=== PATIENT | male | born 1970 | race Caucasian/White ===

== ENCOUNTER 2019-02-27 19:26 | Emergency (ER) | payer BC, SELFPAY ==
[2019-02-27 19:29] VITALS: BP 158/110; PULSE 109; RESP 20; TEMP 37.3; O2SAT 99; BMI 28.1
--- NOTE | 2019-02-27 19:54 | CT_ITS ---
STUDY: CTA OF THE BRAIN REASON FOR EXAM: Male, 48 years old. Right facial paresthesias. Neck pain. RADIATION DOSAGE (If Supplied By Facility): CTDIvol = ( 32.09 ) mGy, DLP = ( 1581.72 ) mGycm TECHNIQUE: CT angiography was performed with a multi-detector CT scanner. Data acquisition was obtained from the skull base through the vertex following intravenous administration of 100ML IV Isovue 370. MIP images were reconstructed from the axial data set. Post-processing of the angiographic images was performed, with multiplanar reformation and 3D reconstruction. Individualized dose optimization techniques were used for this CT. COMPARISON: None. FINDINGS: There is no acute bleed or infarct. There is no hydrocephalus. Normal bilateral petrous carotid arteries. Normal right cavernous carotid artery with a normal supraclinoid bifurcation. Normal left cavernous carotid artery with a normal supraclinoid bifurcation. Normal right A1 segments of the anterior cerebral artery. Normal left A1 segments of the anterior cerebral artery. Normal intact anterior communicating artery (ACOM). Normal bilateral A2 segments of the anterior cerebral arteries. Normal right M1 and M2 segments of the middle cerebral arteries, with a normal M1 bifurcation. Normal left M1 and M2 segments of the middle cerebral arteries, with a normal M1 bifurcation. Normal right posterior communicating artery (PCOM). Normal left posterior communicating artery (PCOM). Normal bilateral vertebral arteries. Normal basilar artery with a normal basilar bifurcation. The visualized bilateral superior cerebellar (SCA) arteries are normal. Normal bilateral P1, P2 and visualized P3 segments of the posterior cerebral arteries. There is no demonstrated aneurysm of the [place]. There is no demonstrated abnormality of the visualized brain. CT/CTA Head W/WO Contrast IMPRESSION: No acute intracranial abnormality. Normal [place] without a demonstrated aneurysm or hemodynamically significant stenosis. Electronically Signed: Gaurav Kaur, at 21:56 EDT Tel , Service support ,
--- NOTE | 2019-02-27 19:54 | CT_ITS ---
STUDY: CTA NECK WITH CONTRAST REASON FOR EXAM: Male, 48 years old. Right-sided facial paresthesias. Patient has right neck pain after recent trauma. RADIATION DOSAGE (If Supplied By Facility): CTDIvol = ( 32.09 ) mGy, DLP = ( 1581.72 ) mGycm TECHNIQUE: CT angiography with multi-detector data acquisition was performed from the aortic arch to the skull base following intravenous administration of 100 ml of IV Isovue 370. MIP images were reconstructed from the axial data set. Post-processing of the angiographic images was performed, with multiplanar reformation and 3D reconstruction. Individualized dose optimization techniques were used for this CT. COMPARISON: None. FINDINGS: AORTIC ARCH: Normal visualized aortic arch. Normal origins of the brachiocephalic, left common carotid, and left subclavian arteries. RIGHT CAROTID ARTERIES: Normal right common carotid artery (CCA). Normal right common carotid bulb. Normal origin of the right internal carotid (ICA) artery without a hemodynamically significant stenosis. There is atherosclerotic tortuous elongation of the cervical portion of the right internal carotid artery. Normal origin of the right external carotid artery (ECA). LEFT CAROTID ARTERIES: Normal left common carotid artery (CCA). Normal left common carotid bulb. Normal origin of the left internal carotid (ICA) artery without a hemodynamically significant stenosis. There is atherosclerotic tortuous elongation of the cervical portion of the left internal carotid artery. Normal origin of the left external carotid artery (ECA). VERTEBRAL ARTERIES: Normal bilateral vertebral arteries. NECK ANATOMY: Normal bilateral parotid glands. 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 Normal bilateral parapharyngeal spaces. Normal bilateral carotid spaces. Normal bilateral sublingual and submandibular glands and spaces. Normal visualized nasopharynx. Normal retropharyngeal space. Normal perivertebral space. Normal visualized bilateral faucial tonsils. The visualized tongue, tongue base and oropharynx are normal. The visualized cervical lymph nodes (levels I-) are within normal size limits, and maintain normal morphology. There is no demonstrated solid or cystic mass lesion. There is no abnormal contrast enhancement. Normal epiglottis, bilateral vallecula and hypopharynx. The pre-epiglottic and paraglottic adipose spaces are normal. Normal visualized bilateral piriform sinuses, aryepiglottic folds, vocal cords, and arytenoid-cricoid articulations. Normal subglottic trachea. Normal bilateral lobes of the thyroid gland. There are peripheral lucencies of the lung apices possibly related to paraseptal emphysema. The lung apices appear to be clear. There is a small mucous retention cyst in the left sphenoid sinus. Patient has had discectomies at C5-6 and C6-7 with evidence for bone allografts and surgical fusion with plate and screws. Patient also has had posterior fusion at C5-[address]/CTA Neck W/WO Contrast IMPRESSION: No CT evidence for hemodynamically significant stenosis, acute thrombosis or dissection. Electronically Signed: Eloina Goyal MD at 22:16 EDT , Service support ,
[2019-02-27] MEDS: 0.9% Normal Saline 1,000 ML 150 ML IV (20:02)
[2019-02-27] MEDS: HYDROmorphone 1 MG/ML Syringe IV (20:02)
[2019-02-27] MEDS: Ondansetron 4 MG/2 ML Vial IV (20:02)
[2019-02-27 20:20] LABS: Absolute Lymphocyte Count 2.22 X10^3/ul (0.83-4.51); Absolute Neutrophil Count 9.9 X10^3/uL (2.0-7.7); Basophil# 0.04 X10^3/uL; Basophil% 0.3 % (0-1); Eosinophil# 0.46 X10^3/uL; Eosinophils% 3.4 % (0-5); Hematocrit 39.3 % (40-54); Hemoglobin 13.1 g/dl (13.0-16.5); Lymphocyte # 2.22 X10^3/ul (4.0); Lymphocyte % 16.3 % (19-41); Mean Corp Hgb Conc 33.3 g/gl (32-36); Mean Corpuscular Hgb 30.7 pg (27.0-32.0); Monocyte# 0.96 X10^3/uL; Neutrophil # 9.93 X10^3/uL (2.7-7.7); Neutrophil % 72.8 % (47-70); Platelet Count 284 K/mm3 (150-450); RBC Distribution Width CV 13.7 % (11.6-14.6); RBC Distribution Width SD 45.9 fl (35.1-43.9); Red Blood Count 4.27 M/mm3 (4.6-6.2); White Blood Count 13.6 K/mm3 (4.4-11.0)
[2019-02-27 20:34] LABS: POSITIVE COUNT NO; POSITIVE DIFFERENTIAL NO; POSITIVE MORPHOLOGY NO
[2019-02-27 20:41] LABS: Anion Gap 7 (5-15); BUN 12 mg/dL (7-18); BUN/Creat Ratio 10.8 RATIO (10-20); Calcium,Total 8.8 mg/dL (8.5-10.1); Chloride 109 mmol/L (98-107); Creatinine, Serum 1.11 mg/dL (0.70-1.30); EST Glomerular Filtration Rate 75 mL/min (>60); Est Glom Filt Rate - Afr Amer 90 mL/min (>60); Estimated Creatinine Clearance 98.83 ml/min; Glucose 94 mg/dL (74-106); Potassium 4.1 mmol/L (3.5-5.1); Sodium Level 144 mmol/L (136-145)
--- NOTE | 2019-02-27 21:15 | ED.VISSUMM ---
- ER Visit Summary Date of Service: 02/27/19 Chief Complaint: Numbness right face, neck pain History of Present Illness: The patient is a 48 M with history of chronic neck pain with history of C-spine surgery several years ago. Patient states he cracked his neck on February 24. It was painful and he heard a loud pop. Since that time he had increased pain to his neck with intermittent sharp pain down to his mid back. Today he noted some right facial numbness. Physical Examination: Blood pressure is 150/110 and heart rate 109. Patient sitting upright in bed. He is no acute distress. Head and neck examination reveals diffuse C-spine tenderness with paraspinal spasm that is palpable. Heart is regular rate and rhythm. Lung sounds are clear. Abdomen is soft and nontender. Neuro exam reveals normal strength throughout. He has decreased sensation to light touch over the right side the face. There is no facial weakness noted. Test Results: CBC was a white count 13.6 with 72% neutrophils. Chemistry studies normal. CTA of the head and neck shows no acute abnormality. Emergency Department Course and Treatment: Patient was given Dilaudid, Zofran, IV fluids. On repeat evaluation he still has some tightness but overall is improved compared to arrival. I did do an oars report. Patient has recently had medical marijuana written for him. His last prescription for Valium was in April of last year. He had no narcotics noted. At this time patient be given a short course of oxycodone and Valium. He does list Percocet as an allergy, but states he knows he took oxycodone after his surgery and did okay with it. Treatment Plan: [] Disposition: Discharge Impression: Cervical strain with spasm This note was generated with [employer] dictation software. It may contain incorrect words, spelling, and punctuation that were not noted in review of the chart prior to signing ED Disposition - Plan for ED Patient: Disposition: Home or Assisted Living Instructions: ED Sprain Strain Neck, ED Spasm Neck No Injury Prescriptions: Oxycodone [Oxyir] 5 mg PO Q6H PRN PRN 3 Days #7 tablet PRN Reason: Pain Diazepam [Valium] 5 mg PO Q8 PRN #10 tablet PRN Reason: Muscle Spasm Referrals: Chad Jane MD [STAFF PHYSICIAN] - As soon as possible
[2019-02-27] MEDS: oxyCODONE 5 MG Tablet PO (22:41)
[2019-02-27] MEDS: diazePAM 5 MG Tablet PO (22:41)
[2019-02-27 22:45] VITALS: RESP 18
== END 2019-02-27 22:45 | disposition home or self-care (01) ==
PROVIDERS: Emergency Provider Emergency Medicine; Family Provider Nurse Practitioner Family; PCP Nurse Practitioner Family
DX: M62.838 Other muscle spasm (principal); S16.1XXA Strain of muscle, fascia and tendon at neck level, initial encounter; Z72.0 Tobacco use; X50.1XXA Overexertion from prolonged static or awkward postures, initial encounter; Y93.89 Activity, other specified; Y92.89 Other specified places as the place of occurrence of the external cause; Y99.8 Other external cause status
CPT/HCPCS: 70496; 70498; 80048; 85025; 96361; 96374; 96375; 99284; J7030; A4216; J2405

== ENCOUNTER 2019-03-01 10:14 | Inpatient (IN) | payer BC, SELFPAY ==
[2019-03-01] VITALS (7 sets, daily range): BP systolic 139–148; BP diastolic 82–92; PULSE 55–86; RESP 16–18; TEMP 36.8–37.4; O2SAT 95–97; BMI 26.7; BMI 26.9
--- NOTE | 2019-03-01 10:26 | CT_ITS ---
STUDY: CT SOFT TISSUE NECK WITH CONTRAST REASON FOR EXAM: Male, 48 years old. Swelling along the right side of the neck and face. Difficulty swallowing. RADIATION DOSAGE (If Supplied By Facility): CTDIvol = ( 21.74 ) mGy, DLP = ( 651.50 ) mGycm TECHNIQUE: The patient was scanned in a multi-detector CT scanner. High resolution transaxial imaging was performed following intravenous administration of 100 IV Isovue 300. Sagittal and coronal images were reconstructed. Individualized dose optimization techniques were used for this CT. COMPARISON: None. FINDINGS: There now is evidence of diffuse swelling overlying the right mandible involving the right masseter muscle with overlying skin thickening. Diffuse swelling of the right submandibular gland. There is evidence of soft tissue swelling along the inside aspect of the right mandible with a fluid level. There is also evidence of a soft tissue swelling involving the right side of the oropharynx as well as the pterygoid region. Normal visualized bilateral faucial tonsils. The visualized tongue, tongue base and oropharynx are normal. There are minimally enlarged lymph nodes of the neck, with preservation of normal lc architecture, consistent with a reactive lymph hyperplasia. This is worse on the right side. There is no demonstrated solid or cystic mass lesion. There is no abnormal contrast enhancement. Normal epiglottis, bilateral vallecula and hypopharynx. The pre-epiglottic and paraglottic adipose spaces are normal. Normal visualized bilateral piriform sinuses, aryepiglottic folds, vocal cords, and arytenoid-cricoid articulations. Normal subglottic trachea. Normal bilateral lobes of the thyroid gland. Normal visualized pulmonary apices. Normal visualized paranasal sinuses. There is multilevel degenerative changes of the cervical spine. CT/Soft Tissue Neck WITH Contrast IMPRESSION: Diffuse right-sided facial swelling as described involving the masseter muscle. Diffuse swelling of the right side of the oropharynx and parapharyngeal regions with enlarged lymph nodes. Diffuse enlargement of the right submandibular gland. Possible fluid collection along medial aspect of the right mandible. Electronically Signed: Diego Berumen, at 11:15 EDT , Service support ,
--- NOTE | 2019-03-01 10:32 | ED.DCSUM_ITS ---
- ER Visit Summary Date of Service: 03/01/19 Chief Complaint: Swelling History of Present Illness: The patient is a 48 M with right some mandibular swelling. Patient was seen for headache and neck pain in this ED 2 days ago. He had imaging which was unremarkable. Since he was seen, the swelling has started. He is having trouble swallowing and he noticed a change in his voice. He never had anything like this before. Physical Examination: Afebrile and vital signs are unremarkable. Patient has right submandibular swelling with tenderness. Oral exam is limited because of mild trismus. No definite sub-lingual swelling. Spine is nontender. Cranial nerves grossly intact. Heart regular. Lungs clear. Test Results: Labs and CT pending. Emergency Department Course and Treatment: Patient treated with fluids, D ilaudid, Zofran while awaiting results. White count 20.5. Patient does not meet other criteria for sepsis, but blood cultures were drawn. CT shows swelling and edema from the masseter muscles into the submandibular gland and extending to the oropharynx. Airway is intact. Patient was discussed with Dr. Shepherd. He will see the patient on consult. Patient was started on Decadron and Rocephin. Patient will be admitted to the hospitalist. Treatment Plan: As above Disposition: Admission Impression: 1. Right submandibular infection This note was generated with [employer] dictation software. It may contain incorrect words, spelling, and punctuation that were not noted in review of the chart prior to signing ED Disposition - Plan for ED Patient: Referrals: Kady Gaitan, YAMIL-C [Primary Care Provider] -
[2019-03-01] MEDS: 0.9% Normal Saline 1,000 ML 999 ML IV (10:44)
[2019-03-01] MEDS: HYDROmorphone 1 MG/ML Syringe IV ×5 (10:44→23:12)
[2019-03-01] MEDS: Ondansetron 4 MG/2 ML Vial IV (10:44)
[2019-03-01 10:54] LABS: Hematocrit 39.5 % (40-54); Hemoglobin 13.5 g/dl (13.0-16.5); Mean Corp Hgb Conc 34.2 g/gl (32-36); Mean Corpuscular Hgb 31.1 pg (27.0-32.0); Mean Platelet Vol. 9.7 fl (6.2-12.0); Platelet Count 218 K/mm3 (150-450); RBC Distribution Width CV 13.6 % (11.6-14.6); RBC Distribution Width SD 45.2 fl (35.1-43.9); Red Blood Count 4.34 M/mm3 (4.6-6.2); White Blood Count 20.5 K/mm3 (4.4-11.0)
[2019-03-01 10:56] LABS: Scan Indicated on CBC? Y/N NO
[2019-03-01 11:06] LABS: Anion Gap 10 (5-15); BUN 9 mg/dL (7-18); BUN/Creat Ratio 7.8 RATIO (10-20); Calcium,Total 8.9 mg/dL (8.5-10.1); Chloride 105 mmol/L (98-107); Creatinine, Serum 1.16 mg/dL (0.70-1.30); EST Glomerular Filtration Rate 71 mL/min (>60); Est Glom Filt Rate - Afr Amer 86 mL/min (>60); Estimated Creatinine Clearance 94.57 ml/min; Glucose 120 mg/dL (74-106); Potassium 3.8 mmol/L (3.5-5.1); Sodium Level 141 mmol/L (136-145)
[2019-03-01] MEDS: dexAMETHasone 10 MG/ML Vial IV (12:11)
[2019-03-01] MEDS: Cefazolin 2 GM in 0.9% Normal Saline 100 ML IV (12:31)
[2019-03-01] MEDS: fentaNYL 100 MCG/2 ML Ampul 50 MCG IV (12:31)
[2019-03-01] MEDS: dexAMETHasone 4 MG/ML Vial IV ×2 (13:32→22:20)
[2019-03-01] MEDS: 0.9% Normal Saline 1,000 ML 125 ML IV ×2 (13:32→23:12)
[2019-03-01] MEDS: 0.9% NaCl Peripheral Flush Adult/Peds IV (16:58)
--- NOTE | 2019-03-01 18:32 | NURSING ---
dr. calderon on unit at this time to assess pt
--- NOTE | 2019-03-01 18:40 | PCM.CONS.GEN ---
Reason for Consult Date of Consultation: 03/01/19 Reason for Consultation: cellulitis of neck History of Present Illness: The patient is a 48 year old M who was admitted to the ER for cellulitis over the right side of the neck. He reports that starting last Friday he suffered significant neck stiffness which is usual for him secondary to his cervical spine fusion. He usually stretches his neck which results in a pop and release of this discomfort however at this time he had significant pain to the point that he dropped to his knees and presented to the emergency department for evaluation where CT scan was done. He was told that this was normal and was given narcotic pain medication. He went home and slept for 24 hours after which time he woke to find significant swelling and discomfort over the right side of his neck. He reports significant dysphagia for his own secretions which prompted him to return to the emergency room for evaluation where a repeat CT scan was done which showed cellulitis over the right side of the neck. He reports he has had improvement in tolerance of his oral secretions since admission with IV antibiotic therapy however continues to have significant dysphagia and has been mostly only taking sips of water. He reports that after cracking his neck he developed some shaking and discomfort in his right arm but this is now subsided. He reports that his cervical fusion has been problematic since the beginning and he no longer maintains follow-up with the placing neurosurgeon. He denies any fevers chills or sweats. He denies dental pain or abscess. He reports that prior to this he was in his usual state of health. [] Past Medical History Allergies acetaminophen [From Percocet] Allergy (Verified 03/01/19 10:16) Hives oxycodone [From Percocet] Allergy (Verified 03/01/19 10:16) Hives propoxyphene [From Darvocet-N] Allergy (Verified 03/01/19 10:16) Hives Home Medications: Ambulatory Orders Medication Instructions Recorded Diazepam [Valium] 5 mg PO Q8 PRN #10 tablet 02/27/19 Oxycodone [Oxyir] 5 mg PO Q6H PRN PRN 3 Days #7 02/27/19 tablet Surgical History: - - Right cervical fusion Smoking Status: Current every day smoker Review of Systems Constitutional: Denies: Chills, Fever, Night Sweats Eyes: Denies: Blurred vision, Eyelid Inflammation, Redness HEENT: Reports: Difficulty Swallowing, Sore Throat. Denies: Difficulty Hearing, Dysphasia, Ear Pain, Eye Pain, Hard of Hearing, Head Aches, Nasal bleeding, Nasal Congestion, Post Nasal Drip, Sinus Congestion Cardiovascular: Denies: Chest Pain, Claudication, Chest Pressure, Chest Tightness Respiratory: Denies: Cough, Hemoptysis, Shortness of Breath Gastrointestinal: Denies: Abdominal Pain, Constipation, Diarrhea Genitourinary: Denies: Dysuria, Hematuria Musculoskeletal: Reports: Arm Pain, Neck Pain Skin: Denies: Dryness, Jaundice Neurological: Denies: Balance problems, Blurred vision, Change in Speech, Slurred speech Psychiatric: Denies: Anxiety, Depression Hematologic/ Lymphatic: Denies: Anemia, Easy Bruising, Easy Bleeding Subjective: Patient is sitting at the bedside he reports swelling and tenderness of the right side of his face and neck. This is improved since his admission earlier today. Objective: Patient is lying at the bed in no acute distress with normal voicing, without wheezing or stridor. There is mild induration and firm swelling over the right angle of the mandible extending into the anterior submental space. Examination oral cavity shows is extending along the buccal mucosa to the right pharyngeal wall which is pale without erythema or exudates. Dentition is partial but without tori dental caries, abscess, or drainage. Trachea is midline. There is no palpable cervical adenopathy. There is no erythema or fluctuance. There is no skin abrasions, pustules, or drainage. - Physical Exam General: Alert, Oriented x3, Cooperative HEENT: Atraumatic, PERRLA, - - Tender swelling of the right angle the mandible submental area and lateral neck Oral: Moist Mucosa, - - Fullness of the right lateral pharyngeal wall without erythema or exudates Neck: No Nodes, Trachea Midline Lungs: Normal air movement, No rhonchi, No wheeze Cardiovascular: Regular rate, Regular Rhythm Abdomen: Non Tender, Non-Distended Extremities: No clubbing, No cyanosis, No edema Skin: No rashes, No breakdown Psych/Mental Status: Normal Affect, Alert and oriented to time, place, person, mood and affect Vital Signs Temp Pulse Resp BP Pulse Ox 98.3 F 55 L 16 139/82 H 95 03/01/19 18:07 03/01/19 18:07 03/01/19 18:07 03/01/19 18:07 03/01/19 18:07 Oxygen Delivery Method Room Air Weight: 100.2 kg Body Mass Index (BMI) 26.9 Intake and Output for Last 24 Hours 02/27/19 02/28/19 03/01/19 23:59 23:59 23:59 Intake Total 845 / 845 Balance 845 / 845 Laboratory Tests Past 24 Hrs 03/01/19 03/01/19 10:50 10:50 WBC 20.5 H RBC 4.34 L Hgb 13.5 Hct 39.5 L MCV 91.0 MCH 31.1 MCHC 34.2 RDW 13.6 RDW Differential 45.2 H Plt Count 218 MPV 9.7 Sodium 141 Potassium 3.8 Chloride 105 Carbon Dioxide 26.0 Anion Gap 10 BUN 9 Creatinine 1.16 Estim Creat Clear Calc 94.57 Est GFR (MDRD) Af Amer 86 Est GFR (MDRD) Non-Af 71 BUN/Creatinine Ratio 7.8 L Glucose 120 H Calcium 8.9 Assessment/Plan Ch[place] is a 48-year-old male presents evaluation of acute swelling of the right side of the neck after forcibly manipulating his neck with history of cervical spine fusion. Given the close relationship of this original injury and his subsequent swelling this does raise the possibility of infection arising from a rent or other injury into the pharyngeal space. I did discuss with the hospitalist extending his antibiotic coverage to cover anaerobes which I think is very appropriate in this setting. There does not appear to be any tori abscess at this time and I am hopeful that he will show a prompt response to antibiotic therapy. I did discuss with him the increased risk for abscess particularly in the setting of his cervical hardware and that should infection in this area be noted that removal of the hardware may be required and that transfer to to the facility where neurosurgery would be available to manage this aspect may be prudent if he does not show significant improvement in the next 24 to 48 hours particularly should there be signs of abscess formation. Given the possibility of a pharyngeal penetration I would recommend that he refrain from eating at this time to which he is very agreeable to report significant pain even with sips of water in the interest of avoiding progression of any mucosal rent from eating. Serial evaluation of his white blood cell count for downward trend as well as serial examination will be important in assessing his progression on his course. I have asked him to notify me for any shortness of breath, hoarseness, or progressive dysphagia particularly intolerance of his own secretions and he is agreeable to do so. He reports that his tolerance of secretions has improved since his admission with institution of IV antibiotic therapy and this is a hopeful sign.
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
--- NOTE | 2019-03-01 18:47 | NURSING ---
Dr. Shepherd states that pt should be NPO in case there is a hole in esophagus. Dr. Shepherd requested wbc- same given and requested that WBC be trended each day. He also states that if pt does not get better with current atb and needs surgery that he will need to be transferred to hospital that has ability to remove hardware placed in pt's spine.
--- NOTE | 2019-03-01 18:48 | NURSING ---
Pt requested to walk sister downstairs- as she has to get her purse from the car. This RN notified patient that [facility] is a non smoking campus and requested that he sign form stating that he knows this to be true and will not smoke when leaving unit.
[2019-03-02 02:07] VITALS: BP 151/89; PULSE 58; RESP 18; TEMP 37; O2SAT 97
[2019-03-02] MEDS: HYDROmorphone 1 MG/ML Syringe IV ×6 (02:13→22:03)
[2019-03-02 02:15] VITALS: PULSE 58
[2019-03-02] MEDS: dexAMETHasone 4 MG/ML Vial IV ×3 (05:19→22:04)
[2019-03-02 06:51] LABS: Absolute Lymphocyte Count 0.87 X10^3/ul (0.83-4.51); Absolute Neutrophil Count 23.1 X10^3/uL (2.0-7.7); Basophil# 0.01 X10^3/uL; Differential Indicated SCAN CRITERIA MET; Eosinophil# 0.01 X10^3/uL; Hematocrit 38.4 % (40-54); Hemoglobin 12.9 g/dl (13.0-16.5); Lymphocyte # 0.87 X10^3/ul (4.0); Lymphocyte % 3.5 % (19-41); Mean Corp Hgb Conc 33.6 g/gl (32-36); Mean Corpuscular Hgb 30.1 pg (27.0-32.0); Mean Corpuscular Volume 89.7 fL (80-94); Mean Platelet Vol. 10.8 fl (6.2-12.0); Monocyte# 0.87 X10^3/uL; Monocyte% 3.5 % (0-10); Neutrophil # 23.07 X10^3/uL (2.7-7.7); Neutrophil % 92.7 % (47-70); POSITIVE COUNT NO; POSITIVE DIFFERENTIAL YES; POSITIVE MORPHOLOGY NO; Platelet Count 250 K/mm3 (150-450); RBC Distribution Width CV 13.5 % (11.6-14.6); RBC Distribution Width SD 43.7 fl (35.1-43.9); Red Blood Count 4.28 M/mm3 (4.6-6.2); White Blood Count 24.9 K/mm3 (4.4-11.0)
[2019-03-02 07:19] LABS: ALB/GLOB Ratio 0.7 RATIO (0.9-2.4); AST(SGOT) 18 U/L (15-37); Alanine Aminotransfer ALT/SGPT 19 U/L (16-61); Albumin, Serum 3.2 g/dL (3.2-5.0); Alkaline Phosphatase 93 U/L (45-117); Anion Gap 10 (5-15); BUN 11 mg/dL (7-18); Calcium,Total 8.8 mg/dL (8.5-10.1); Chloride 105 mmol/L (98-107); EST Glomerular Filtration Rate 75 mL/min (>60); Est Glom Filt Rate - Afr Amer 91 mL/min (>60); Estimated Creatinine Clearance 99.73 ml/min; Globulin 4.3 g/dL (2.2-4.2); Glucose 151 mg/dL (74-106); Potassium 3.8 mmol/L (3.5-5.1); Protein, Total 7.5 g/dL (6.4-8.2); Sodium Level 139 mmol/L (136-145)
[2019-03-02 08:07] VITALS: BP 150/99; PULSE 58; RESP 18; TEMP 36.9; O2SAT 98
--- NOTE | 2019-03-02 08:35 | PCM.PROGNOTE ---
Patient Problems: Active and Suspected Problems Right facial cellulitis (Acute) Subjective: Chief complaint: Follow-up after admission for acute right-sided neck/submandibular/submental cellulitis. Patient seen and examined. No acute events overnight. He mentioned that swelling on the right side of his face is getting worse, still painful. He still having difficulty swallowing and also painful. Denies fever or chills. His vital signs are stable. - Physical Exam General: Alert, Cooperative, No apparent distress HEENT: Atraumatic, PERRLA, EOMI, Normocephalic Oral: Moist Mucosa, No Gingival or Mucosal Lesions/ Ulcerations, - - Swelling and fullness of the right buccal mucosa. Diffuse swelling of the right cheek, right submandibular on the right submental area as well as right side of the neck. Neck: Supple, No JVD, Negative Carotid Bruits, Trachea Midline, Thyroid Normal Size and Texture, - - Swelling of the right side of the neck. Lungs: Clear to auscultation, Normal air movement, No rhonchi, No wheeze, No rales Cardiovascular: Regular rate, Regular Rhythm, Normal S1, Normal S2, PMI Normal Abdomen: Bowel Sounds Present, Soft, Non Tender, Non-Distended, No Hepato-splenomegaly Extremities: No clubbing, No cyanosis, No edema Skin: No rashes, No breakdown Lymphatic: No Cervical, Supraclavicular, or Inguinal Adenopathy Neurological: Cranial nerves II-XII grossly intact, Motor Exam 5/5 strength throughout Psych/Mental Status: Normal Affect, Appropriate, Alert and oriented to time, place, person, mood and affect Vital Signs Temp Pulse Resp BP Pulse Ox 98.6 F 58 L 18 151/89 H 97 03/02/19 02:07 03/02/19 02:15 03/02/19 02:07 03/02/19 02:07 03/02/19 02:07 Oxygen Delivery Method Room Air Weight: 220 lb 14.451 oz Body Mass Index (BMI) 26.9 Intake and Output for Last 24 Hours 02/28/19 03/01/19 03/02/19 23:59 23:59 23:59 Intake Total 845 / 1726 1583 / 1583 Balance 845 / 1726 1583 / 1583 Laboratory Tests Past 24 Hrs 03/01/19 03/01/19 03/02/19 10:50 10:50 06:00 WBC 20.5 H 24.9 H RBC 4.34 L 4.28 L Hgb 13.5 12.9 L Hct 39.5 L 38.4 L MCV 91.0 89.7 MCH 31.1 30.1 MCHC 34.2 33.6 RDW 13.6 13.5 RDW Differential 45.2 H 43.7 Plt Count 218 250 MPV 9.7 10.8 Immature Gran % (Auto) 0.300 Neut % (Auto) 92.7 H Lymph % (Auto) 3.5 L [place] % (Auto) 3.5 Eos % (Auto) 0.0 Baso % (Auto) 0.0 Absolute Neuts (auto) 23.1 H Absolute Lymphs (auto) 0.87 Total Counted Not Reportable Sodium 141 Potassium 3.8 Chloride 105 Carbon Dioxide 26.0 Anion Gap 10 BUN 9 Creatinine 1.16 Estim Creat Clear Calc 94.57 Est GFR (MDRD) Af Amer 86 Est GFR (MDRD) Non-Af 71 BUN/Creatinine Ratio 7.8 L Glucose 120 H Calcium 8.9 Total Bilirubin AST ALT Alkaline Phosphatase Total Protein Albumin Globulin Albumin/Globulin Ratio 03/02/19 06:00 WBC RBC Hgb Hct MCV MCH MCHC RDW RDW Differential Plt Count MPV Immature Gran % (Auto) Neut % (Auto) Lymph % (Auto) [place] % (Auto) Eos % (Auto) Baso % (Auto) Absolute Neuts (auto) Absolute Lymphs (auto) Total Counted Sodium 139 Potassium 3.8 Chloride 105 Carbon Dioxide 24.0 Anion Gap 10 BUN 11 Creatinine 1.10 Estim Creat Clear Calc 99.73 Est GFR (MDRD) Af Amer 91 Est GFR (MDRD) Non-Af 75 BUN/Creatinine Ratio 10.0 Glucose 151 H Calcium 8.8 Total Bilirubin 0.50 AST 18 ALT 19 Alkaline Phosphatase 93 Total Protein 7.5 Albumin 3.2 Globulin 4.3 H Albumin/Globulin Ratio 0.7 L Clinical Impression(s) from Imaging Studies Soft Tissue Neck CT 03/01/19 10:26 IMPRESSION: Diffuse right-sided facial swelling as described involving the masseter muscle. Diffuse swelling of the right side of the oropharynx and parapharyngeal regions with enlarged lymph nodes. Diffuse enlargement of the right submandibular gland. Possible fluid collection along medial aspect of the right mandible. Electronically Signed: Diego Berumen, at 11:15 EDT , Service support , Medical Necessity - Tobacco Use Smoking Status: Current every day smoker Tobacco Use: Cigarettes Assessment/Plan All Active Problems Right facial cellulitis (Acute) This is a 48 years old male patient with no significant past medical history apart from back pain and history of cervical spine fusion surgery presented to the emergency room because of swelling of the right side of the face and he was found to have acute right facial/neck/submandibular and submental cellulitis. #1 acute right side neck/submandibular/submental cellulitis: CT scan soft tissue of the neck revealed diffuse right-sided facial swelling involving the masseter muscle, diffuse swelling of the right side of the oropharynx and parapharyngeal regions with enlarged lymph nodes, diffuse enlargement of the right submandibular gland and possible fluid collection around the medial aspect of the right mandible. Patient is on IV Unasyn And IV Decadron. He has been afebrile, white blood cell count is trending up. He is still symptomatic, complaining of increasing swelling of the right face, tender. ENT consulted, recommended to continue IV antibiotics at this time. Plan to continue same treatment, repeat CBC tomorrow morning, increase IV Dilaudid to 2 to 3 mg every 4 hours as needed, will discuss with ENT if we need to do CT scan of the cervical spine itself. #2 DVT prophylaxis: Low risk patient, no prophylaxis indicated. This note was generated with [employer] dictation software. It may contain incorrect words, spelling, and punctuation that were not noted in checking the note before signing. Code Visit Inpatient E&M: 75819 Subs Hosp L2
[2019-03-02] MEDS: 0.9% NaCl Peripheral Flush Adult/Peds IV ×5 (08:46→22:04)
[2019-03-02] MEDS: 0.9% Normal Saline 1,000 ML 125 ML IV ×2 (08:47→20:03)
--- NOTE | 2019-03-02 09:35 | CASEMGMT ---
RN BARBARA Face to Face with patient for initial transition planning/care coordination assessment. RN CM introduced self and role at [facility]. Patient sitting in chair, alert and oriented. Patient willing to participate in assessment and is able to answer all questions appropriately. Care providers, pharmacy, and demographics verified. Patient wishes to discharge home, denies need for home health at this time. Patient states he has no further needs or concerns at this time. CM to follow for discharge planning needs that may arise. PCP: Kady PICKENS Specialists: talat Jane Pharmacy: [facility] Insurance: [employer] Prescription Benefit: yes Living Will/HPOA: none LNOK: sister Living Arrangements: Patient currently live in an apartment and states that in a few weeks will move in with his sister and then is moving to [place]. Patient is independent at home. Transportation: self/sister DME/HHC: None Disposition Plan: Patient to discharge home with family support and follow-up plans in place. Martita YEE, RN, CM
--- NOTE | 2019-03-02 10:04 | PCM.PROGNOTE ---
Patient Problems: Active and Suspected Problems Right facial cellulitis (Acute) Subjective: The patient reports that overnight the area of swelling has extended across the midline onto the left side is become tender. He denies any progression of dysphasia, shortness of breath, or hoarseness. He reports that he notes that when he turns his neck now he hears a loud clicking sound that was not present previously. Objective: Patient is well-appearing in no acute distress with no drooling, wheezing, stridor, or hoarseness. He is sitting comfortably at the bedside. There continues to be soft tender fullness over the right side of the neck, this does extend slightly across the midline in the submental area. There is no crepitus, erythema, or fluctuance. Examination oral cavity again shows pale mucosa with some mild fullness of the right lateral pharyngeal wall but no tori exudates or erythema. Tongue is freely mobile there is no swelling of the floor of mouth. - Physical Exam General: Alert, Oriented x3, Cooperative, No apparent distress HEENT: Atraumatic, PERRLA, EOMI Oral: Moist Mucosa, No Gingival or Mucosal Lesions/ Ulcerations Neck: Trachea Midline Lungs: Normal air movement, No rhonchi, No wheeze Cardiovascular: Regular rate, Regular Rhythm Psych/Mental Status: Alert and oriented to time, place, person, mood and affect Vital Signs Temp Pulse Resp BP Pulse Ox 98.5 F 58 L 18 150/99 H 98 03/02/19 08:07 03/02/19 08:07 03/02/19 08:07 03/02/19 08:07 03/02/19 08:07 Oxygen Delivery Method Room Air Weight: 100.2 kg Body Mass Index (BMI) 26.9 Intake and Output for Last 24 Hours 02/28/19 03/01/19 03/02/19 23:59 23:59 23:59 Intake Total 845 / 1726 1583 / 1583 Balance 845 / 1726 1583 / 1583 Laboratory Tests Past 24 Hrs 03/01/19 03/01/19 03/02/19 10:50 10:50 06:00 WBC 20.5 H 24.9 H RBC 4.34 L 4.28 L Hgb 13.5 12.9 L Hct 39.5 L 38.4 L MCV 91.0 89.7 MCH 31.1 30.1 MCHC 34.2 33.6 RDW 13.6 13.5 RDW Differential 45.2 H 43.7 Plt Count 218 250 MPV 9.7 10.8 Immature Gran % (Auto) 0.300 Neut % (Auto) 92.7 H Lymph % (Auto) 3.5 L [place] % (Auto) 3.5 Eos % (Auto) 0.0 Baso % (Auto) 0.0 Absolute Neuts (auto) 23.1 H Absolute Lymphs (auto) 0.87 Total Counted Not Reportable Sodium 141 Potassium 3.8 Chloride 105 Carbon Dioxide 26.0 Anion Gap 10 BUN 9 Creatinine 1.16 Estim Creat Clear Calc 94.57 Est GFR (MDRD) Af Amer 86 Est GFR (MDRD) Non-Af 71 BUN/Creatinine Ratio 7.8 L Glucose 120 H Calcium 8.9 Total Bilirubin AST ALT Alkaline Phosphatase Total Protein Albumin Globulin Albumin/Globulin Ratio 03/02/19 06:00 WBC RBC Hgb Hct MCV MCH MCHC RDW RDW Differential Plt Count MPV Immature Gran % (Auto) Neut % (Auto) Lymph % (Auto) [place] % (Auto) Eos % (Auto) Baso % (Auto) Absolute Neuts (auto) Absolute Lymphs (auto) Total Counted Sodium 139 Potassium 3.8 Chloride 105 Carbon Dioxide 24.0 Anion Gap 10 BUN 11 Creatinine 1.10 Estim Creat Clear Calc 99.73 Est GFR (MDRD) Af Amer 91 Est GFR (MDRD) Non-Af 75 BUN/Creatinine Ratio 10.0 Glucose 151 H Calcium 8.8 Total Bilirubin 0.50 AST 18 ALT 19 Alkaline Phosphatase 93 Total Protein 7.5 Albumin 3.2 Globulin 4.3 H Albumin/Globulin Ratio 0.7 L Medical Necessity - Tobacco Use Smoking Status: Current every day smoker Tobacco Use: Cigarettes Assessment/Plan All Active Problems Right facial cellulitis (Acute) Mr. Shah continues to have fullness and tenderness of the right side of the neck. I do not appreciate significant erythema cellulitis or fluctuance to suggest a tori abscess at this time. I am very concerned about the audible click that his neck now makes with turning his head which she reports is new and given his history of cervical spine fusion, his report of traumatic stretching, and subsequent development of pain and cellulitis that this may be a complication of his cervical fusion plate. I do feel that he would benefit from transfer to an institution where neurosurgical services would be available for assessment as well as management of the potential infection around his implant which potentially could require removal or other surgical intervention for which would be ill prepared to provide. I would continue his n.p.o. status and intravenous antibiotic therapy. I am reluctant for endoscopic evaluation as this would require rigid endoscopy and with his history of cervical fusion and potential dislocation of the plate could potentially expose him to significant risk of injury. I did discuss with the hospitalist my concerns.
--- NOTE | 2019-03-02 10:20 | CASEMGMT ---
Insurance review for [facility] facilities if transfer is recommended. [facility], [facility], [facility], [facility], [facility]
--- NOTE | 2019-03-02 12:31 | CT_ITS ---
STUDY: CT CERVICAL SPINE WITHOUT CONTRAST REASON FOR EXAM: Male, 48 years old. Neck pain RADIATION DOSAGE (If Supplied By Facility): CTDIvol = ( 28.91 ) mGy, DLP = ( 637.80 ) mGycm TECHNIQUE: High resolution transaxial imaging was performed without contrast material. Sagittal and coronal images were reconstructed. Individualized dose optimization techniques were used for this CT. COMPARISON: None FINDINGS: Normal craniovertebral junction. Normal anterior atlantoaxial articulation. Normal odontoid process. Decreased cervical lordosis. Normal vertebral bodies and posterior osseous elements. C2-3: Normal endplates. Normal disc height and morphology. Normal central canal and intervertebral neuroforamina. C3-4: Normal endplates. Normal disc height and small central disc protrusion. Normal central canal and intervertebral neuroforamina. C4-5: Minor endplate spurring.. Normal disc height and morphology. Normal central canal and intervertebral neuroforamina. C5-6: Status post anterior and posterior fusion.. No focal disc protrusion. Normal central canal and intervertebral neuroforamina C6-7: Status post anterior fusion. Normal central canal. Mild bilateral neural foraminal encroachment secondary to bony hypertrophy C7-T1: Normal endplates. Normal disc height and morphology. Normal central canal and intervertebral neuroforamina. Normal visualized soft tissue structures. CT/Spine Cervical without Contras IMPRESSION: No evidence for acute fracture or subluxation. Mild spondylosis. Postop changes at C5-6 and C6-7 No definitive evidence for acute osteomyelitis. MRI with contrast would be helpful for further assessment in this regard if indicated Electronically Signed: Jamie Andrade MD at 16:47 EDT , Service support ,
--- NOTE | 2019-03-02 12:36 | NURSING ---
Pt going to CT scan at this time.
[2019-03-02 13:31] VITALS: BP 149/95; PULSE 55; RESP 18; TEMP 36.7; O2SAT 98
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
[2019-03-02 19:45] VITALS: BP 173/89; PULSE 68; RESP 18; TEMP 36.4; O2SAT 96
[2019-03-02] MEDS: diazePAM 5 MG Tablet PO (20:02)
[2019-03-03] MEDS: HYDROmorphone 1 MG/ML Syringe IV ×2 (02:04→06:24)
[2019-03-03 02:05] VITALS: BP 165/101; PULSE 72; RESP 16; TEMP 36.6; O2SAT 97
[2019-03-03] MEDS: diazePAM 5 MG Tablet PO (04:11)
[2019-03-03] MEDS: 0.9% Normal Saline 1,000 ML 125 ML IV (04:11)
[2019-03-03 06:02] LABS: Absolute Lymphocyte Count 0.95 X10^3/ul (0.83-4.51); Absolute Neutrophil Count 20.7 X10^3/uL (2.0-7.7); Basophil# 0.01 X10^3/uL; Hematocrit 35.2 % (40-54); Hemoglobin 11.9 g/dl (13.0-16.5); Lymphocyte # 0.95 X10^3/ul (4.0); Lymphocyte % 4.2 % (19-41); Mean Corp Hgb Conc 33.8 g/gl (32-36); Mean Corpuscular Hgb 30.4 pg (27.0-32.0); Mean Platelet Vol. 10.7 fl (6.2-12.0); Monocyte% 4.4 % (0-10); Neutrophil # 20.66 X10^3/uL (2.7-7.7); Neutrophil % 91.1 % (47-70); Platelet Count 259 K/mm3 (150-450); RBC Distribution Width CV 13.7 % (11.6-14.6); RBC Distribution Width SD 44.2 fl (35.1-43.9); Red Blood Count 3.91 M/mm3 (4.6-6.2); White Blood Count 22.7 K/mm3 (4.4-11.0)
[2019-03-03 06:03] LABS: Differential Indicated SCAN CRITERIA MET; POSITIVE COUNT NO; POSITIVE DIFFERENTIAL YES; POSITIVE MORPHOLOGY NO
[2019-03-03] MEDS: dexAMETHasone 4 MG/ML Vial IV (06:24)
[2019-03-03 08:05] VITALS: BP 164/90; PULSE 64; RESP 18; TEMP 36.6; O2SAT 96
--- NOTE | 2019-03-03 08:20 | DCINST_ITS ---
- Discharge Diagnoses Current Active Problems: Current Active and Chronic Problems Right facial cellulitis (Acute) You will use the following diet at home:: Regular Your food should be the consistency of: Regular Discharge Activity: Return to Normal Activity Return to work on:: 03/08/19 Weight Bearing Status: Full weight bearing Call your doctor if you observe: Fever of 101 or Higher, Shortness of breath, Dizziness, Fainting spells, Chest pain, Increased palpitations (irregular heartbeat), Uncontrolled pain Additional Instructions: Follow-up with neurosurgery as outpatient. Follow-up with dentist as outpatient. Allergies/Adverse Reactions: Allergies acetaminophen [From Percocet] Allergy (Verified 03/01/19 10:16) Hives oxycodone [From Percocet] Allergy (Verified 03/01/19 10:16) Hives propoxyphene [From Darvocet-N] Allergy (Verified 03/01/19 10:16) Hives Medications to take at Discharge Amox/Clavulanate Tablet [Augmentin Tablet] 875 mg PO Q12H #14 tab 03/03/19 Diazepam [Valium] 5 mg PO Q12H PRN PRN #10 tab 03/03/19 Ketorolac [Toradol] 10 mg PO Q6H #14 tab 03/03/19 The following prescriptions were given: Amox/Clavulanate Tablet [Augmentin Tablet] 875 mg PO Q12H #14 tab Prescription Printed Ketorolac [Toradol] 10 mg PO Q6H #14 tab Prescription Printed Diazepam [Valium] 5 mg PO Q12H PRN PRN #10 tab PRN Reason: Muscle Spasm Prescription Printed Primary Care Physician: Kady Gaitan NP-C [Primary Care Provider] - Please follow up with your Primary Care Physician in: 1 week. Test Results: Test results from this visit will be discussed in further detail at your follow- up appointment, if applicable.
[2019-03-03 08:21] VITALS: BP 164/90; PULSE 64; RESP 18; TEMP 36.6; O2SAT 96
--- NOTE | 2019-03-03 08:52 | DCINST_ITS ---
- Discharge Diagnoses Current Active Problems: Current Active and Chronic Problems Right facial cellulitis (Acute) You will use the following diet at home:: Regular Your food should be the consistency of: Regular Discharge Activity: Return to Normal Activity Return to work on:: 03/08/19 Weight Bearing Status: Full weight bearing Call your doctor if you observe: Fever of 101 or Higher, Shortness of breath, Dizziness, Fainting spells, Chest pain, Increased palpitations (irregular heartbeat), Uncontrolled pain Additional Instructions: 1. Patient need to be seen by neurosurgery as outpatient for loud clicking sound on the right side of his neck in context of history of cervical spine fusion surgery. 2. Follow-up with dentist as outpatient. Allergies/Adverse Reactions: Allergies acetaminophen [From Percocet] Allergy (Verified 03/01/19 10:16) Hives oxycodone [From Percocet] Allergy (Verified 03/01/19 10:16) Hives propoxyphene [From Darvocet-N] Allergy (Verified 03/01/19 10:16) Hives Medications to take at Discharge Amox/Clavulanate Tablet [Augmentin Tablet] 875 mg PO Q12H #14 tab 03/03/19 Diazepam [Valium] 5 mg PO Q12H PRN PRN #10 tab 03/03/19 Ketorolac [Toradol] 10 mg PO Q6H #14 tab 03/03/19 The following prescriptions were given: Amox/Clavulanate Tablet [Augmentin Tablet] 875 mg PO Q12H #14 tab Prescription Printed Ketorolac [Toradol] 10 mg PO Q6H #14 tab Prescription Printed Diazepam [Valium] 5 mg PO Q12H PRN PRN #10 tab PRN Reason: Muscle Spasm Prescription Printed Primary Care Physician: Kady Gaitan NP-C [Primary Care Provider] - Please follow up with your Primary Care Physician in: 1 week. Test Results: Test results from this visit will be discussed in further detail at your follow- up appointment, if applicable.
--- NOTE | 2019-03-03 13:58 | DS.PCM_ITS ---
Discharge Date and Diagnosis - Problem List Patient Problems: Active and Suspected Problems Right facial cellulitis (Acute) Date of Admission: 03/01/19 Date of Discharge: 03/03/19 - Primary Discharge Diagnosis Active and Suspected Problems #1 acute right-sided neck/submandibular/submental cellulitis. #2 clicking sound on the right side of the neck, past history of cervical spine fusion surgery, referred to neurosurgery as outpatient. Hospital Course and Treatment Imaging Results: Clinical Impression(s) from Imaging Studies Soft Tissue Neck CT 03/01/19 10:26 IMPRESSION: Diffuse right-sided facial swelling as described involving the masseter muscle. Diffuse swelling of the right side of the oropharynx and parapharyngeal regions with enlarged lymph nodes. Diffuse enlargement of the right submandibular gland. Possible fluid collection along medial aspect of the right mandible. Electronically Signed: Diego Berumen, at 11:15 EDT , Service support , Cervical Spine CT 03/02/19 12:31 IMPRESSION: No evidence for acute fracture or subluxation. Mild spondylosis. Postop changes at C5-6 and C6-7 No definitive evidence for acute osteomyelitis. MRI with contrast would be helpful for further assessment in this regard if indicated Electronically Signed: Jamie Andrade MD at 16:47 EDT , Service support , Dr. Shepherd, ENT. Operations: None Procedures: None Summary of Care Provided: Patient seen and examined on the day of discharge and appeared to be stable to be discharged home. Swelling on the right side of the face is improving and patient has been able to eat and drink. He has been afebrile. blood pressure was slightly elevated, other vital signs were stable. The patient is a 48 year old M admitted because of swelling of the right side of his face, right side neck pain and he was found to have acute cellulitis involving the right side of the neck, right facial, submandibular, submental regions. CT scan of the neck soft tissue with contrast revealed diffuse right- sided facial swelling involving the masseter muscle, diffuse swelling of the right side of the oropharynx and parapharyngeal region with enlarged lymph nodes and diffuse enlargement of the right submandibular gland. He was found to have significant leukocytosis. Patient was treated with IV Unasyn and IV Decadron. ENT consulted and Dr. Shepherd stated that there is no evidence of abscess that need to be drained. Patient has history of cervical spine fusion surgery and he had some neck pain during this admission in addition to loud clicking sound upon neck movement. Initially, ENT recommended to transfer the patient to tertiary care center where he can be evaluated by neurosurgery. I made a call to [facility] in [place] to transfer the patient for neurosurgical evaluation and they recommended to do CT scan cervical spine which was done and revealed no evidence of acute fracture or dislocation, postoperative changes at C5-C6 and C6-C7, no acute osteomyelitis. Decision was made to referred the patient to neurosurgery as outpatient. With IV antibiotics, swelling on the right side of the face improved and white blood cell count also improved. Blood culture showed no growth in 48 hours. Patient was able to eat and drink. Patient discharged home in a stable medical condition, discharged on Augmentin for 7 days of treatment, discharged on Toradol for pain and Valium as needed, recommended to follow-up with PCP in 1 week, patient will need to be evaluated by a dentist, referral to outpatient neurosurgical evaluation was made. Patient Problems: Active and Suspected Problems Right facial cellulitis (Acute) - Physical Exam General: Alert, Oriented x3, Cooperative, No apparent distress HEENT: Atraumatic, PERRLA, EOMI, Normocephalic Oral: Moist Mucosa, No Gingival or Mucosal Lesions/ Ulcerations, - - Swelling and fullness of the right buccal mucosa, right face. Neck: Supple, No JVD, Negative Carotid Bruits, Trachea Midline, Thyroid Normal Size and Texture Lungs: Clear to auscultation, Normal air movement, No rhonchi, No wheeze, No rales Cardiovascular: Regular rate, Regular Rhythm, Normal S1, Normal S2, No murmurs Abdomen: Bowel Sounds Present, Soft, Non Tender, Non-Distended, No Hepato- splenomegaly Extremities: No clubbing, No cyanosis, No edema Skin: No rashes, No breakdown Lymphatic: No Cervical, Supraclavicular, or Inguinal Adenopathy Neurological: Cranial nerves II-XII grossly intact, Motor Exam 5/5 strength throughout Psych/Mental Status: Normal Affect, Appropriate Vital Signs Temp Pulse Resp BP Pulse Ox 97.8 F 64 18 164/90 H 96 03/03/19 08:21 03/03/19 08:21 03/03/19 08:21 03/03/19 08:21 03/03/19 08:21 Oxygen Delivery Method Room Air Weight: 220 lb 14.451 oz Body Mass Index (BMI) 26.9 Intake and Output for Last 24 Hours 03/01/19 03/02/19 03/03/19 23:59 23:59 23:59 Intake Total 845 / 1726 3906 / 3906 873 / 873 Balance 845 / 1726 3906 / 3906 873 / 873 Microbiology Past 72 Hours 03/01/19 11:55 Blood Culture - Preliminary Blood Culture (Wb) - Anticubital Right No growth in 48 hours. 03/01/19 12:15 Blood Culture - Preliminary Blood Culture (Wb) - Anticubital Left No growth in 48 hours. Laboratory Tests Past 24 Hrs 03/03/19 05:25 WBC 22.7 H RBC 3.91 L Hgb 11.9 L Hct 35.2 L MCV 90.0 MCH 30.4 MCHC 33.8 RDW 13.7 RDW Differential 44.2 H Plt Count 259 MPV 10.7 Immature Gran % (Auto) 0.300 Neut % (Auto) 91.1 H Lymph % (Auto) 4.2 L Lipscomb % (Auto) 4.4 Eos % (Auto) 0.0 Baso % (Auto) 0.0 Absolute Neuts (auto) 20.7 H Absolute Lymphs (auto) 0.95 Total Counted Not Reportable Discharge Activity: Return to Normal Activity Return to work on:: 03/08/19 Weight Bearing Status: Full weight bearing Call your doctor if you observe: Fever of 101 or Higher, Shortness of breath, Dizziness, Fainting spells, Chest pain, Increased palpitations (irregular heartbeat), Uncontrolled pain Home Medications: Medications to take at Discharge Amox/Clavulanate Tablet [Augmentin Tablet] 875 mg PO Q12H #14 tab 03/03/19 Diazepam [Valium] 5 mg PO Q12H PRN PRN #10 tab 03/03/19 Ketorolac [Toradol] 10 mg PO Q6H #14 tab 03/03/19 Following Prescrptions Were Given to Patient: Amox/Clavulanate Tablet [Augmentin Tablet] 875 mg PO Q12H #14 tab Prescription Printed Ketorolac [Toradol] 10 mg PO Q6H #14 tab Prescription Printed Diazepam [Valium] 5 mg PO Q12H PRN PRN #10 tab PRN Reason: Muscle Spasm Prescription Printed Primary Care Physician: Kady Gaitan NP-C [Primary Care Provider] - Please follow up with your Primary Care Physician in: 1 week. Please Follow Up With: Elsy Disposition: Home Minutes spent on discharge:: 32 Patient Condition:: Stable Medical Necessity - Tobacco Use Smoking Status: Current every day smoker Tobacco Use: Cigarettes Meaningful Use Info Meaningful Use Diagnoses (Choose all that apply): None applicable Code Visit Inpatient E&M: 65749 Disch Hosp
== END 2019-03-03 09:23 | disposition home or self-care (01) | DRG 603 ==
LOC: ED 11:03 → MS3 12:28
PROVIDERS: Admitting Provider Internal Medicine; Emergency Provider Emergency Medicine; Family Provider Nurse Practitioner Family; PCP Nurse Practitioner Family; Visit Provider Hospitalist
DX: L03.221 Cellulitis of neck (principal); K12.2 Cellulitis and abscess of mouth; L03.211 Cellulitis of face; M47.812 Spondylosis without myelopathy or radiculopathy, cervical region; Z98.1 Arthrodesis status; G89.29 Other chronic pain; F17.210 Nicotine dependence, cigarettes, uncomplicated
CPT/HCPCS: 36415; 70491; 72125; 80048; 80053; 85025; 85027; 87040; 99283; 99406; J7030; J7050; Q9967; A4216; J0295; J2405

== ENCOUNTER → 2019-03-05 | Outpatient (CLI) | payer BC, SELFPAY ==
[2019-03-01 13:03] VITALS: BMI 26.9
--- NOTE | 2019-03-05 15:32 | MRI_ITS ---
STUDY: MRI LUMBAR SPINE WITHOUT CONTRAST REASON FOR EXAM: Male, 48 years old. Back and right leg pain TECHNIQUE: Standardized fat and water weighted pulse sequences were obtained in the sagittal and axial planes. COMPARISON: None FINDINGS: Lumbar spine is intact and aligned with normal marrow, SI joints and paraspinous soft tissues. Conus medullaris terminates at T12-L1 with normal cauda equina and patent thecal sac. L4-L5 has a central disc protrusion and annular tear with proximity of herniated disc material to the right traversing L5 nerve root in the lateral recess without anatomic compression. L5-S1 has a left subarticular disc protrusion with proximity of herniated disc material to the left traversing S1 nerve root in the lateral recess without anatomic compression. There is mild to moderate left L5-S1 foraminal stenosis. Remainder of the foramina are patent. MRI/Spine Lumbar (Routine) IMPRESSION: 1. Spondylosis without thecal sac stenosis or neural compression. Electronically Signed: Paula Lincoln, at 17:01 EDT Tel , Service support ,
--- NOTE | 2019-03-05 15:32 | MRI_ITS ---
STUDY: MRI CERVICAL SPINE WITHOUT CONTRAST REASON FOR EXAM: Male, 48 years old. Numbness of right arm and face TECHNIQUE: Standardized fat and water weighted pulse sequences were obtained in the sagittal and axial planes. COMPARISON: 01 March 2019 FINDINGS: Craniocervical junction is intact and aligned. There is straightening of the cervical lordosis with mild reversal. There is C5-C7 ACDF. There is bilateral C5-C6 articular screw fusion, Marrow and paraspinal soft tissues are normal. There is mild spondylotic thecal sac compression at C3-C4 without cord compression. Remainder of the levels have patent thecal sac. There is moderate right C3-C4 foraminal stenosis. Remainder of the levels have patent foramina. Spinal cord is normal in size, shape and signal. Appearance is similar to prior. MRI/Spine Cervical (Routine) IMPRESSION: 1. Expected appearance of C5-C7 ACDF. 2. No neural compression. Electronically Signed: Paula Lincoln, at 17:07 EDT Tel , Service support ,
== END | disposition home or self-care (01) ==
PROVIDERS: Family Provider Nurse Practitioner Family; PCP Nurse Practitioner Family; Referring Provider Anesthesiology Pain Medicine; Visit Provider Anesthesiology Pain Medicine
DX: M54.2 Cervicalgia (principal); M54.9 Dorsalgia, unspecified; M79.606 Pain in leg, unspecified
CPT/HCPCS: 72141; 72148

== ENCOUNTER → 2020-06-02 17:37 | Outpatient (CLI) | payer BC, SELFPAY ==
[2019-03-01 13:03] VITALS: BMI 26.9
--- NOTE | 2020-06-02 17:51 | MRI_ITS ---
STUDY: MRI LUMBAR SPINE WITHOUT CONTRAST REASON FOR EXAM: Male, 50 years old. Severe back and right leg pain x 10 years. Surgery Aug 2019 to and quot;shave disc and quot; TECHNIQUE: Standardized fat and water weighted pulse sequences were obtained in the sagittal and axial planes. COMPARISON: 03/05/2019 FINDINGS: T12-L1: Normal endplates. Normal disc height, hydration and morphology. Normal bilateral facet joints. Normal central canal and bilateral lateral recesses. Normal bilateral intervertebral neural foramina. Normal lumbar lordosis. There is no substantial scoliosis. Normal conus medullaris that terminates at the T12/L1. L1-2: Disc desiccation with loss of disc height but no disc protrusion, spinal stenosis, or neural foraminal stenosis. L2-3: Normal endplates. Normal disc height, hydration and morphology. Normal bilateral facet joints. Normal central canal and bilateral lateral recesses. Normal bilateral intervertebral neural foramina. L3-4: Normal endplates. Normal disc height, hydration and morphology. Normal bilateral facet joints. Normal central canal and bilateral lateral recesses. Normal bilateral intervertebral neural foramina. L4-5: No change in the mild central disc protrusion which produces mild spinal stenosis, moderate right lateral recess stenosis with abutment of the right L5 nerve root, mild left lateral recess stenosis and mild bilateral neural foraminal stenosis. There is evidence of interval surgery in this area suggestive of recurrent disc protrusion. L5-S1: Mild left facet hypertrophy. No change in the mild broad disc protrusion which produces mild spinal stenosis, mild right neural foraminal stenosis and moderate left neural foraminal stenosis with abutment of the left L5 nerve root laterally. Normal visualized sacral ala. Normal visualized paraspinous soft tissue structures. MRI/Spine Lumbar (Routine) IMPRESSION: Similar to the prior study with suggestion of a recurrent disc protrusion at L4/L5 with mild spinal stenosis and moderate right lateral recess stenosis with abutment of the right L5 nerve root. Electronically Signed: Josh Lawson MD at 10:08 EDT Tel , Service support ,
== END ==
LOC: MRI 17:39
PROVIDERS: PCP Nurse Practitioner Family; Referring Provider Anesthesiology Pain Medicine; Visit Provider Anesthesiology Pain Medicine
DX: M54.9 Dorsalgia, unspecified (principal); M79.604 Pain in right leg
CPT/HCPCS: 72148

== ENCOUNTER → 2020-09-13 09:38 | Outpatient (CLI) | payer BC, SELFPAY ==
[2020-09-13 10:56] LABS: AST(SGOT) 20 U/L (15-37); Alanine Aminotransfer ALT/SGPT 40 U/L (16-61); Albumin, Serum 3.8 g/dL (3.2-5.0); Alkaline Phosphatase 109 U/L (45-117); Anion Gap 6 (5-15); BUN 13 mg/dL (7-18); BUN/Creat Ratio 10.9 RATIO (10-20); Chloride 108 mmol/L (98-107); Cholesterol 227 mg/dL (200); Creatinine, Serum 1.19 mg/dL (0.70-1.30); EST Glomerular Filtration Rate 68 mL/min (>60); Est Glom Filt Rate - Afr Amer 83 mL/min (>60); Globulin 3.7 g/dL (2.2-4.2); Glucose 99 mg/dL (74-106); High Density Lipoprotein 51 mg/dL; PSA,Total - Annual Screen 2.12 ng/mL (0.00-4.00); Potassium 3.8 mmol/L (3.5-5.1); Protein, Total 7.5 g/dL (6.4-8.2); Sodium Level 139 mmol/L (136-145); Triglycerides 123 mg/dL; Very Low Density Lipoprotein 25 mg/dL (5-40)
== END ==
PROVIDERS: PCP Nurse Practitioner Family; Referring Provider Nurse Practitioner Family; Visit Provider Nurse Practitioner Family
DX: Z01.818 Encounter for other preprocedural examination (principal); E78.5 Hyperlipidemia, unspecified; K21.9 Gastro-esophageal reflux disease without esophagitis; Z12.5 Encounter for screening for malignant neoplasm of prostate
CPT/HCPCS: 36415; 80053; 80061; 84153; G0103

== ENCOUNTER 2020-09-19 05:20 | Inpatient (IN) | payer BC, SELFPAY ==
[2020-08-14 14:16] VITALS: BMI 26.7
--- NOTE | 2020-09-13 09:51 | EKG12_ITS ---
Test Reason : PREOP Blood Pressure : / mmHG Vent. Rate : 068 BPM Atrial Rate : 068 BPM P-R Int : 152 ms QRS Dur : 090 ms QT Int : 416 ms P-R-T Axes : 040 049 034 degrees QTc Int : 442 ms Normal sinus rhythm Normal ECG Confirmed by LUDMILA ELI, VLEMA ([id number]), videotape editor CAROL SHAVRE ([id number]) on 09/13/2020 12:35:49 PM Referred By: Joselo Bui Confirmed By:VELMA KEYS MD
[2020-09-13 10:40] LABS: Anion Gap 6 (5-15); BUN 13 mg/dL (7-18); BUN/Creat Ratio 11.2 RATIO (10-20); Calcium,Total 9.3 mg/dL (8.5-10.1); Chloride 108 mmol/L (98-107); Creatinine, Serum 1.16 mg/dL (0.70-1.30); EST Glomerular Filtration Rate 70 mL/min (>60); Est Glom Filt Rate - Afr Amer 85 mL/min (>60); Glucose 100 mg/dL (74-106); Potassium 3.7 mmol/L (3.5-5.1); Sodium Level 140 mmol/L (136-145)
[2020-09-13 11:02] LABS: Absolute Lymphocyte Count 2.89 X10^3/uL (0.83-4.51); Absolute Neutrophil Count 5.7 X10^3/uL (2.0-7.7); Basophil# 0.07 X10^3/uL; Basophil% 0.7 % (0-1); Eosinophil# 0.29 X10^3/uL; Hematocrit 40.6 % (40-54); Lymphocyte # 2.89 X10^3/ul (4.0); Lymphocyte % 30.3 % (19-41); Mean Corp Hgb Conc 34.5 g/dL (32-36); Mean Corpuscular Hgb 32.5 pg (27.0-32.0); Mean Corpuscular Volume 94.2 fL (80-94); Monocyte# 0.53 X10^3/uL; Monocyte% 5.5 % (0-10); NRBC Flagged by Analyzer 0 % (0-5); Neutrophil # 5.74 X10^3/uL (2.7-7.7); Neutrophil % 60.2 % (47-70); Platelet Count 333 K/mm3 (150-450); RBC Distribution Width CV 13.4 % (11.6-14.6); RBC Distribution Width SD 44.5 fl (35.1-43.9); Red Blood Count 4.31 M/mm3 (4.6-6.2); White Blood Count 9.6 K/mm3 (4.4-11.0)
[2020-09-13 11:15] LABS: HIV - WCH Non-Reactive (Nonreactive)
[2020-09-14 06:07] LABS: HEPATITIS B SURFACE AG Negative (Negative); Hepatitis A AB, Total Negative (Negative); Hepatitis A IgM Antibody Negative (Negative); Hepatitis B Core AB IgM Negative (Negative); Hepatitis B Core Ab Total Negative (Negative); Hepatitis C Ab <0.1 s/co ratio (0.0-0.9)
[2020-09-14 12:27] LABS: Hep B Surface Antibodies Non Reactive (.)
[2020-09-19] VITALS (13 sets, daily range): BP systolic 98–150; BP diastolic 63–101; PULSE 52–79; RESP 16–18; TEMP 36.4–37.2; O2SAT 95–100; BMI 28.3
--- NOTE | 2020-09-19 06:21 | HP_ITS ---
Intake Vital Signs 08/14/20 Height 6 ft 4 in 08/14/20 Weight: 220 lb 08/14/20 BMI 26.7 Intake Visit Reasons: Back pain Accompanied by: Self Allergies acetaminophen [From Percocet] Allergy (Verified 08/14/20 14:17) Hives oxycodone [From Percocet] Allergy (Verified 08/14/20 14:17) Hives propoxyphene [From Darvocet-N] Allergy (Verified 08/14/20 14:17) Hives pain killers Allergy (Intermediate, Uncoded 08/14/20 14:17) shakiness, rashes, itchy, difficulty with breathing Medications multivitamin with iron 1 tab PO DAILY 08/14/20 [History Confirmed 08/14/20] [facility] Social History (Updated 08/14/20 @ 15:[address] Joselo Bui DO) Smoking Status: Heavy Smoker (>10/day) substance use type: other details: medical marijuana HPI Back pain: Details: Parts of this documentation were recorded by a scribe, this documentation accurately reflects the service provided and the decisions made by me, Dr. Joselo Bui DO 08/14/20 0451. EUGENIO WEBER is a 50 year old M here today to establish as a new patient. Patient was referred by Dr. Jane. Patient had an injection by Dr. Jane, last friday to which patient found effective. Patient has c/o cervical, thoracic and lumbar pain. Onset: 15 years, worsening over time. Denies an accident and injury. Patient has had previous back surgeries. Euegnio is a most pleasant gentleman 50 years old has chief complaint of severe low back pain and pain radiates in his right buttocks and down his right leg and what seems to be a classic L5 dermatome. He had a laminectomy at L4-5 on the right side in August 2019. He did get temporary relief of his leg pain but then the pain started again after he returned to work. Now the leg pain is perhaps worse than it was before. In the meantime he developed a lot of's low back pain. Overall his low back pain is perhaps even worse than his leg pain. It never goes down the left side. He denies any bowel or bladder dysfunction. He denies history of unexplained weight loss night fever sweats or chills. He states that when the pain is bad it is a 10/10. He recently had an epidural done by Dr. Art and is brought the pain down to a 4. He knows it will only be temporary however. On examination he has very positive tension signs very positive straight leg raising. He has pain down his leg with forward flexion. He has good motor strength of all the major muscle groups of both lower extremities. He has no long tract signs. Clonus is absent Babinski's are downgoing. He has no muscle atrophy. He has a 2+ patella and 1+ Achilles reflexes bilaterally. I reviewed x-rays and his MRI scan. He has recurrent disc herniation at L4-5 on the right side consistent with his symptoms. He also has a disc protrusion with degeneration of the L5-S1 disc. Our plan is to do a 360 degree fusion at the L4-5 and L5-S1 levels with a repeat laminectomy at L4-5 on the right side. I will see him again prior to surgery. ROS Const Reports system reviewed and no additional complaints, except as docu, Denies body aches, Denies chills, Denies fatigue, Denies fever(s), Reports headache(s), Reports weakness ENT Reports headache(s) Card Denies system reviewed and no additional complaints, except as docu, Denies chest pain, Denies shortness of breath Resp Denies system reviewed and no additional complaints, except as docu, Denies chest congestion, Denies cough, Denies shortness of breath GI Reports system reviewed and no additional complaints, except as docu, Denies abdominal pain, Denies constipation, Denies incontinent of stools, Denies loose stools, Reports nausea Denies system reviewed and no additional complaints, except as docu, Denies urinary incontinence Musc Reports system reviewed and no additional complaints, except as docu, Reports joint pain, Reports numbness, Reports stiffness, Reports tingling Skin/Breast Denies system reviewed and no additional complaints, except as docu, Denies dry skin, Denies redness, Denies lesions, Denies new lesions, Denies non-healing lesions, Denies itching, Denies rash, Denies skin ulcer, Denies sores, Denies wounds Neuro Yes system reviewed and no additional complaints, except as docu, Yes headache(s), Yes numbness, Yes radiating pain, Yes tingling, Yes weakness Endo Denies fatigue Assessment & Plan 1. Back pain M54.9 Coding Level of Care Code Off vis,new,level 3 Diagnoses Back pain M54.9 Time Spent (min) 30
[2020-09-19 06:25] LABS: Bedside Glucose 96 mg/dL (70-110)
[2020-09-19] MEDS: Lactated Ringers 1,000 ML 100 ML IV ×3 (06:31→15:40)
--- NOTE | 2020-09-19 07:30 | RAD_ITS ---
STUDY: X-RAY - LUMBAR SPINE REASON FOR EXAM: Male, 50 years old. 360 FUSION L4-L5, L5-S1 WITH REPEAT LAMINECTOMY L4-L5 -- XFIRE IN OR TECHNIQUE: 1 view(s) of the lumbar spine were obtained. COMPARISON: None FINDINGS: Radiography was utilized within the operating room and a single image is made of for interpretation. A metallic probe is seen at L5/S1.. RAD/Spine 1 View Any Level IMPRESSION: Radiograph in the operating room during lumbar spine surgery Electronically Signed: Josh Lawson MD at 10:01 EST Tel , Service support ,
[2020-09-19] MEDS: Cefazolin 2 GM in 0.9% Normal Saline 100 ML IV (07:57)
--- NOTE | 2020-09-19 09:34 | RAD_ITS ---
STUDY: X-RAY - LUMBAR SPINE REASON FOR EXAM: Male, 50 years old. 360 FUSION L4-L5, L5-S1 -- XFIRE IN OR TECHNIQUE: 1 view(s) of the lumbar spine were obtained. COMPARISON: None FINDINGS: A single lateral view of the lower lumbar spine was obtained and operating room during surgery. Patient is status post discectomy and anterior fusion at L5/S1.. RAD/Spine 1 View Any Level IMPRESSION: Single lateral view during the lumbar spine surgery. Electronically Signed: Josh Lawson MD at 10:43 EST Tel , Service support ,
--- NOTE | 2020-09-19 10:37 | RAD_ITS ---
STUDY: X-RAY - LUMBAR SPINE REASON FOR EXAM: Male, 50 years old. 360 FUSION L4-L5, L5-S1 -- XFIRE IN OR TECHNIQUE: 1 view(s) of the lumbar spine were obtained. COMPARISON: 09/19/2020 at 1022 FINDINGS: Radiography of the lumbar spine was utilized and operating room and a single image is made of for interpretation. Patient is status post discectomy and anterior fusion at L4/L5 and L5/S1.. RAD/Spine 1 View Any Level IMPRESSION: Radiograph during lumbar spine fusion. Electronically Signed: Josh Lawson MD at 12:09 EST Tel , Service support ,
[2020-09-19] MEDS: Heparin 10,000 UNITS/10 ML Vial 10000 UNITS ×2 (11:00)
--- NOTE | 2020-09-19 12:03 | RAD_ITS ---
STUDY: X-RAY - LUMBAR SPINE REASON FOR EXAM: Male, 50 years old. PORTABLE IN SURGERY, 360 FUSION, L4-5, L5-S1 TECHNIQUE: 1 view(s) of the lumbar spine were obtained. COMPARISON: 09/19/2019 09/25/1949 FINDINGS: Single lateral radiograph the lumbar spine was obtained and operating room and a cemented for interpretation. The patient is status post anterior discectomy and fusion at L4/L5 and L5/S1.. RAD/Spine 1 View Any Level IMPRESSION: Status post anterior discectomy and fusion at L4/L5 and L5/S1. Electronically Signed: Josh Lawson MD at 14:02 EST Tel , Service support ,
--- NOTE | 2020-09-19 12:28 | OP.PCM_ITS ---
Report of Operation Date of Procedure: 09/19/20 Description of Surgical Findings:: Preoperative diagnosis: Current disc herniation L4-5 on the right and #2 degenerative disc disease L5-S1 Postoperative diagnosis: Same The procedure was anterior lumbar interbody fusion L5-S1 #2 anterior lumbar interbody fusion L4-5 #3 insertion of cage at L5-S1 #4 insertion of cage at L4-5 #5 application of internal fixation at L5-S1 #6 application of internal fixation L4-5 Cosurgeons: Sebas Bui and Dr. Del Toro escrow assistant Dr. Jamie Portillo Anesthesia: [facility] Estimated blood loss: 100 cc Drains: None Complications: None Patient was taken to the OR where he was placed under general endotracheal anesthesia after putting him on his OR table in the supine position. General anesthesia neuro monitoring shipping technician placed all his leads and a Saldana catheter was inserted. The abdomen was then prepped and draped in standard fashion. Approach done by Dr. Del Toro, is described in his operative summary. This we had access to the L5-S1 disc first certain retractors in place was able to remove the anterior annulus with a 10 blade I then removed nucleus from within the disc space with both pituitary rongeurs of different sizes and bowl curettes and ring curettes. I had all the disc out back to the very posterior part of the space close to the tear longitudinal ligament I then took my measurements for the cage. A smaller of the 2 sizes 8 degree 12 mm high cage that earlier used a needle after first doing a puncture incision and placing needle in the left ASIS. Then was able to obtain 60 cc of BMA. This was handed off to the shipping technician who concentrated the stem cells and them from the other fluids. Allograft spongy bone was then used to fill the 12 mm cage and soaked in the patient's own stem cells. I used both the 10 mm and a 12 mm broach to broach the space into bleeding bone into the endplate. Was thoroughly irrigated I then entered with the cage tamped into place and countersunk it a couple of millimeters. Dr. Del Toro then in his surgical summary describes the approach to L4-5. He had good exposure. I then remove the anterior annulus at L4-5 with a 10 blade and again remove the nucleus from then the disc space with both curettes and pituitary rongeurs until I was back near the posterior longitudinal ligament. Measurements for this and also decided we needed a 12 mm cage the space was then broached again as it was below with a 12 mm broach. I then filled the cage with the spongy allograft and soaked in the patient's stem cells. It was then tamped into place and countersunk a complete plate was applied same size as the one that we used a 5 1 but specialized for L4-5 and 3 4. I then used the awl to put in the appropriate length screws at all 4 points these were entered and give us good fixation both here and at the L5-S1 level below. Closure is then described in Dr. Del Toro's operative summary.
--- NOTE | 2020-09-19 13:20 | OP.PCM_ITS ---
Problem List (1) DDD (degenerative disc disease), lumbosacral Status: Acute Report of Operation Date of Procedure: 09/19/20 Pre-Operative Diagnosis: Disc herniation L4-L5 and degenerative disc disease L5- S1 Post-Operative Diagnosis: The same Surgery/Procedure Performed:: Surgeon: Dr. Joselo Bui. Co-surgeon: Dr. Jefferson Del Toro. Surgery: The procedure was anterior lumbar interbody fusion L5-S1 #2 anterior lumbar interbody fusion L4-5 #3 insertion of cage at L5-S1 #4 insertion of cage at L4-5 #5 application of internal fixation at L5-S1 #6 application of internal fixation L4-5 Description of Surgical Findings:: Patient brought to the operating room. Placed in the supine position. Underwent general anesthesia. Preoperative antibiotics were given. Appropriate monitoring lines were placed. Patient undergone appropriate timeout consent prior to this. Patient was then prepped and draped in a sterile fashion. We did an oblique incision in the left lower quadrant dissecting down onto the anterior fascia. We then freed up the fascia superior and inferior. We got into the retroperitoneal space down onto the psoas and over towards the iliac vessels. Put in the Omni retractor. Using blunt dissection we freed up along the area of the L5-S1 disc space. Middle sacral vessels were divided between clips. We had good exposure and confirm we are at L5-S1. Patient underwent the discectomy. Cage was placed. Anterior plate was then placed with 2 screws into L5 and 2 screws into the sacrum. We then removed the retractors and dissected up to the L4-L5 disc space. Dissecting down lumbar vessels divided between clips. The iliolumbar vein was divided between ties and clips. We had good exposure and then underwent the discectomy at this level as well. This was then dilated and the cage was placed in good position. Freed up along the endplates and an 8 plate was then placed. 2 screws into L4 and 2 screws into L5. We took an x-ray to confirm good positions of both cages. There is good hemostasis noted throughout. We then first could not find one of the peanuts but eventually this was found and counts were intact. We then closed the fascia with a running strata fix and then Jaleel's with Vicryl and subdermal Vicryl and then 4-0 Monocryl for the skin. Dermabond was placed. Patient will then be flipped the second part of the operation, I was only for the anterior component of the 2 level ALIF.
--- NOTE | 2020-09-19 13:58 | RAD_ITS ---
STUDY: X-RAY - LUMBAR SPINE REASON FOR EXAM: Male, 50 years old. 360 fusion L4-L5, L5-S1 -- final images TECHNIQUE: 1 view(s) of the lumbar spine were obtained. COMPARISON: 09/19/2020 at 1334 FINDINGS: Single lateral view of the lumbar spine demonstrates the patient is status post discectomy, anterior fusion, and interspinous fixation at L4/L5 and L5/S1.. RAD/Spine 1 View Any Level IMPRESSION: Status post fixation lower lumbar spine.. Electronically Signed: Josh Lawson MD at 15:26 EST Tel , Service support ,
[2020-09-19] MEDS: THROMBIN (RECOMBINANT) 20,000 UNIT VIAL 20000 UNIT TOPICAL (14:14)
--- NOTE | 2020-09-19 15:35 | OP.PCM_ITS ---
Report of Operation Description of Surgical Findings:: Preoperative diagnosis: Recurrent herniated disc L4-5 on the right #2 degenerative disc disease L5-S1 Operative diagnoses: The same Procedure: Jeff lumbar laminectomy L4-5. #2 posterior fusion L4-S1. #3 segmental internal fixation L4-5. #4 segmental internal fixation L5-S1. Surgeon: Dr. Bui magistrate assistant: John from surgery Anesthesia: General endotracheal anesthesia administered by [facility] Estimated blood loss: Less than 30 cc Drains: Medium Hemovac Complications: None Patient was taken to the OR where the anterior cervical surgery was done first once the entire surgery was completed and the anterior abdominal wound was closed by Dr. Del Toro we then moved the patient onto the prone position on the Alex frame. After appropriate position with care to protect the bony prominences the ulnar nerves the facial features the genitalia, the back was pre pped and draped in standard fashion. I then made an incision over the old L4-5 incision I did ellipse out the old scar to make it easier to close. I then opened the subcutaneous tissues with the cautery all the way down to the lumbar fascia. I then elevated the subcutaneous tissues off of the lumbar fascia to either direction. And opened it first on the left then on the right and elevated the paravertebral muscles off the lamina of 4 on the right and L5 on the right. Note that care was taken to stay outside of the actual laminotomy area so as to not puncture the dura. The super slide retractor was then put in place given the good access then used a sharp knife to remove some of the fat graft it was left on the dura. I then elevated the scar tissue from around the entire laminotomy site and enlarged the laminotomy with 45 degree Kerrison rongeurs this was also done lateralward where the medial facetectomy was performed I also removed some of the top of the lamina of L5 with 45 degree Kerrison rongeurs. Was able to retract the nerve root which was easily identified and the dura medialward note that the nerve was completely decompressed at this point. I suspect that most of the decompression occurred with the complete discectomy of the L4-5 disc from the anterior portion and with the addition of the cage the process of ligamentotaxis took place pushing the protrusion back and. That was done there was no pressure whatsoever on the L5 nerve root on the right side. Then packed it with a Gelfoam to stop any slight bleeding again the fusion process extend the incision all the way down to S2 vein paravertebral muscles off the lamina of S1 which had hardly spinous process at all to the night spinous process at L2. I then may measure the using the sizer for the N grafts used a 10 mm and graft I used a 16mm N graft between 5&@2\spelled prior to put in the knees down we used a bur to bur the lamina of S1-S2 L5 and L4 on both sides. These grafts were in place we then filled the gutters with remaining spongy allograft from the front part but these on both sides the internal fixation devices were applied to use a 40 mm device between 4 and 5 pressed down against the bone and locked it in place the locking mechanism was and activated. Then used a 55 mm device between L5 and S2 again the locking mechanisms were activated after walking it into place on the base of the spinous processes. Thorough irrigation was carried out. A medium Hemovac drain was inserted. We then began closure. First I closed the lumbar fascia using [id number] suture with #1 Vicryl. This was followed by closure of subcutaneous tissues with a 2-0 Vicryl in interrupted fashion and the skin was approximated using skin clips sterile dressings were then applied the patient was then recovered in the OR moved to his hospital bed and taken to recovery in satisfactory condition this interoperative summary.
--- NOTE | 2020-09-19 20:02 | PCM.PN.HOSP ---
Patient Problems: Active and Suspected Problems DDD (degenerative disc disease), lumbosacral (Acute) Reason for Visit: Consult for postop medical management. Subjective: 50-year-old male with past medical history of hypertension, chronic low back pain who comes in for elective back surgery?360 degree fusion at L4-L5 and L5-L6 with a repeat laminectomy at L4-5 the right side. He has a previous history of L4-L5 laminectomy a year ago. Patient was seen in the postop period. He is pain is fairly controlled. He was seen sitting up in a chair. He did denied any dizziness or fever or chills or chest pain or shortness of breath. He has had some flatus but no bowel movement. Vitals at the time of being seen was 98.1F, heart rate 60s, blood pressure 145/98, respiratory rate 18, SPO2 was 95% on room air. WBC count was 9.6, hemoglobin 14.0, platelet count 323, BMP was unremarkable. Vitals/I&O's: Vital Signs Temp Pulse Resp BP Pulse Ox 98.9 F 64 18 128/81 H 98 09/19/20 18:25 09/19/20 18:25 09/19/20 18:25 09/19/20 18:25 09/19/20 18:25 Oxygen Flow Rate (L/min) 6 Oxygen Delivery Method Room Air Weight: 105.6 kg Body Mass Index (BMI) 28.3 Intake and Output for Last 24 Hours 09/17/20 09/18/20 09/19/20 23:59 23:59 23:59 Intake Total 2216 / 2216 Output Total 900 / 900 Balance 1316 / 1316 General: Alert, Oriented x3, Cooperative, No apparent distress HEENT: Atraumatic, PERRLA, EOMI, Normocephalic Oral: Moist Mucosa Neck: Supple Lungs: Clear to auscultation, Normal air movement Cardiovascular: Regular rate, Regular Rhythm, Normal S1, Normal S2, No murmurs Abdomen: Bowel Sounds Present, Soft, Non Tender, Non-Distended, No Hepato-splenomegaly Extremities: No edema Skin: No rashes Musculoskeletal: No Tenderness to Palpation of Joints or Extremities Lymphatic: No Cervical, Supraclavicular, or Inguinal Adenopathy Neurological: Cranial nerves II-XII grossly intact, Neuro grossly intact Psych/Mental Status: Normal Affect, Appropriate Microbiology Past 72 Hours 09/18/20 08:40 Interface Orders SARS-CoV-2 Antigen (Rapid) - Final Laboratory Results 09/19/20 06:14: POC Glucose 96 Current Medications Acetaminophen (Acetaminophen 500 Mg Tablet) 1,000 mg PO Q8 [facility] Last Admin: 09/19/20 19:10 Dose: Not Given Documented by: Diazepam (Diazepam 5 Mg Tablet) 10 mg PO Q6H PRN PRN PRN Reason: Muscle Spasms Enteral Nutritional Formula (Ensure Surgery 237 Ml Liquid) 237 ml PO TIDCM [facility] Last Admin: 09/19/20 19:10 Dose: Not Given Documented by: Famotidine (Famotidine 20 Mg Tablet) 20 mg PO BID [facility] Lactated Ringer's () 1,000 mls @ 100 mls/hr IV .Q10H [facility] Last Admin: 09/19/20 15:40 Dose: 100 mls/hr Documented by: Cefazolin Sodium () 1 gm in 50 mls @ 100 mls/hr IV Q8H [facility] Stop: 09/20/20 04:59 Influenza Virus Vaccine Quadrival (Influenza Vaccine (6mos+)/Pf 0.5 Ml Syringe) 0.5 ml IM .ONCE ONE Stop: 09/20/20 10:01 Morphine Sulfate (Morphine 4 Mg/Ml Syringe) 2 - 4 mg IV Q2H PRN PRN PRN Reason: Pain Score 6-10 Morphine Sulfate (Morphine 2 Mg/Ml Syringe) 2 - 4 mg IV Q2H PRN PRN PRN Reason: Pain Score 6-10 Ondansetron HCl (Ondansetron 4 Mg/2 Ml Vial) 4 mg IV Q8H PRN PRN PRN Reason: NAUSEA Senna/Docusate Sodium (Senna/Docusate Sodium 1 Tablet) 2 tablet PO BID [facility] Sodium Chloride (0.9% Nacl Peripheral Flush Adult/Peds) 5 - 15 ml IV UD PRN PRN Reason: SALINE FLUSH Sodium Chloride (0.9% Saline Lock 10 Ml Syringe) 10 - 40 ml IV UD PRN PRN Reason: SALINE FLUSH Tramadol HCl (Tramadol 50 Mg Tablet) 50 - 100 mg PO Q6H PRN PRN PRN Reason: Pain Score 4-5 Zolpidem Tartrate (Zolpidem Tartrate 5 Mg Tablet) 5 mg PO QHS PRN PRN PRN Reason: INSOMNIA STROKE Vital Signs/Narrative: Vital Signs Temp Pulse Resp BP Pulse Ox 09/19/20 18:25 98.9 F 64 18 128/81 H 98 09/19/20 17:45 97.5 F L 69 16 128/94 H 96 09/19/20 17:30 69 16 132/101 H 98 09/19/20 17:15 56 L 16 114/79 98 09/19/20 17:00 65 16 126/93 H 98 09/19/20 16:45 57 L 16 125/83 H 98 09/19/20 16:30 53 L 16 119/79 98 Medical Necessity - Tobacco Use Smoking Status: Heavy Smoker (>10/day) Tobacco Use: Cigarettes Assessment/Plan All Active Problems DDD (degenerative disc disease), lumbosacral (Acute) Right facial cellulitis (Acute) 1. POD #0 status post 360 degree fusion at the L4-5 and L5-S1 with a repeat laminectomy at L4-5 on the right side Pain is controlled, continue on IV morphine, bowel regimen Surgical wound management per the primary team PT/OT to evaluate and treat 2. Hypertension, controlled, home lisinopril on hold, continue to monitor May resume lisinopril tomorrow if blood pressure remains improved and renal function is stable 3. DVT prophylaxis with SCDs Inpatient E&M: 53899 Init Hosp L2
[2020-09-19] MEDS: Morphine 2 MG/ML Syringe IV (20:05)
[2020-09-19] MEDS: Senna/Docusate Sodium 1 Tablet 2 TABLET PO (21:00)
[2020-09-19] MEDS: Acetaminophen 500 MG Tablet 1000 MG PO (21:00)
[2020-09-19] MEDS: Famotidine 20 MG Tablet PO (21:00)
[2020-09-19] MEDS: Cefazolin 1 GM/50 ML BAG IV (21:00)
[2020-09-19] MEDS: Morphine 4 MG/ML Syringe IV (22:00)
[2020-09-20] MEDS: Bisacodyl 10 MG Suppository RECTAL ×2 (00:12→09:18)
[2020-09-20] MEDS: Morphine 4 MG/ML Syringe IV ×5 (00:17→14:28)
[2020-09-20 03:44] VITALS: BP 135/83; PULSE 63; RESP 16; TEMP 36.6; O2SAT 98
[2020-09-20] MEDS: Cefazolin 1 GM/50 ML BAG IV (04:18)
[2020-09-20] MEDS: 0.9% NaCl Peripheral Flush Adult/Peds IV ×2 (04:19→22:33)
[2020-09-20] MEDS: Lactated Ringers 1,000 ML 100 ML IV ×3 (04:23→22:33)
[2020-09-20] MEDS: Acetaminophen 500 MG Tablet 1000 MG PO ×2 (05:10→22:23)
[2020-09-20 06:00] LABS: Absolute Lymphocyte Count 2.11 X10^3/uL (0.83-4.51); Absolute Neutrophil Count 16.1 X10^3/uL (2.0-7.7); Basophil# 0.03 X10^3/uL; Basophil% 0.2 % (0-1); Hematocrit 39.3 % (40-54); Hemoglobin 12.7 g/dL (13.0-16.5); Lymphocyte # 2.11 X10^3/ul (4.0); Lymphocyte % 10.8 % (19-41); Mean Corp Hgb Conc 32.3 g/dL (32-36); Mean Corpuscular Hgb 29.6 pg (27.0-32.0); Mean Corpuscular Volume 91.6 fL (80-94); Mean Platelet Vol. 9.8 fl (6.2-12.0); Monocyte# 1.27 X10^3/uL; Monocyte% 6.5 % (0-10); NRBC Flagged by Analyzer 0 % (0-5); Neutrophil # 16.09 X10^3/uL (2.7-7.7); Platelet Count 333 K/mm3 (150-450); RBC Distribution Width CV 13.2 % (11.6-14.6); Red Blood Count 4.29 M/mm3 (4.6-6.2); White Blood Count 19.6 K/mm3 (4.4-11.0)
[2020-09-20 06:34] LABS: ALB/GLOB Ratio 1.1 RATIO (0.9-2.4); AST(SGOT) 19 U/L (15-37); Alanine Aminotransfer ALT/SGPT 28 U/L (16-61); Albumin, Serum 3.5 g/dL (3.2-5.0); Alkaline Phosphatase 95 U/L (45-117); Anion Gap 5 (5-15); BUN 14 mg/dL (7-18); BUN/Creat Ratio 11.1 RATIO (10-20); Calcium,Total 8.5 mg/dL (8.5-10.1); Chloride 109 mmol/L (98-107); Creatinine, Serum 1.26 mg/dL (0.70-1.30); EST Glomerular Filtration Rate 64 mL/min (>60); Est Glom Filt Rate - Afr Amer 77 mL/min (>60); Estimated Creatinine Clearance 85.15 ml/min; Globulin 3.3 g/dL (2.2-4.2); Glucose 107 mg/dL (74-106); Potassium 3.9 mmol/L (3.5-5.1); Protein, Total 6.8 g/dL (6.4-8.2); Sodium Level 140 mmol/L (136-145)
[2020-09-20 07:20] VITALS: O2SAT 97
--- NOTE | 2020-09-20 08:06 | PN_ITS ---
Patient Problems: Active and Suspected Problems DDD (degenerative disc disease), lumbosacral (Acute) Subjective: Chief complaint: Follow-up after consultation for postoperative medical management. Patient seen and examined. No acute events overnight. Low back pain is manageable with pain medication, patient has been ambulating. Reported minimal cough, no sputum production. Denied fever or chills. Denied abdominal pain, nausea or vomiting, no diarrhea. He has a Saldana catheter. Vital signs are stable, afebrile. - Physical Exam Vitals/I&O's: Vital Signs Temp Pulse Resp BP Pulse Ox 98 F 63 16 135/83 H 97 09/20/20 03:44 09/20/20 03:44 09/20/20 03:44 09/20/20 03:44 09/20/20 07:20 Oxygen Flow Rate (L/min) 6 Oxygen Delivery Method Room Air Weight: 232 lb 12.93 oz Body Mass Index (BMI) 28.3 Intake and Output for Last 24 Hours 09/18/20 09/19/20 09/20/20 23:59 23:59 23:59 Intake Total 2806 / 2806 510 / 510 Output Total 1920 / 1920 400 / 400 Balance 886 / 886 110 / 110 General: Alert, Oriented x3, Cooperative, No apparent distress HEENT: Atraumatic, PERRLA, EOMI, Normocephalic Oral: Moist Mucosa, No Gingival or Mucosal Lesions/ Ulcerations Neck: Supple, No JVD, Negative Carotid Bruits, Trachea Midline, Thyroid Normal Size and Texture Lungs: Clear to auscultation, Normal air movement, No rhonchi, No wheeze, No rales Cardiovascular: Regular rate, Regular Rhythm, Normal S1, Normal S2, PMI Normal Abdomen: Bowel Sounds Present, Soft, Non Tender, Non-Distended, No Hepato- splenomegaly Extremities: No clubbing, No cyanosis, No edema Skin: No rashes, No breakdown Lymphatic: No Cervical, Supraclavicular, or Inguinal Adenopathy Neurological: Cranial nerves II-XII grossly intact, Motor Exam 5/5 strength throughout Psych/Mental Status: Normal Affect, Appropriate, Alert and oriented to time, place, person, mood and affect Microbiology Past 72 Hours 09/18/20 08:40 Interface Orders SARS-CoV-2 Antigen (Rapid) - Final Laboratory Results 09/20/20 05:38: WBC 19.6 H, RBC 4.29 L, Hgb 12.7 L, Hct 39.3 L, MCV 91.6, MCH 29.6, MCHC 32.3, RDW Std Deviation 45.0 H, RDW Coeff of Angelica 13.2, Plt Count 333, MPV 9.8, Immature Gran % (Auto) 0.500, Neut % (Auto) 82.0 H, Lymph % (Auto) 10.8 L, [place] % (Auto) 6.5, Eos % (Auto) 0.0, Baso % (Auto) 0.2, Absolute Neuts (auto) 16.1 H, Absolute Lymphs (auto) 2.11, Nucleated RBC % 0 09/20/20 05:38: Sodium 140, Potassium 3.9, Chloride 109 H, Carbon Dioxide 26.0, Anion Gap 5, BUN 14, Creatinine 1.26, Estim Creat Clear Calc 85.15, Est GFR (MDRD) Af Amer 77, Est GFR (MDRD) Non-Af 64, BUN/Creatinine Ratio 11.1, Glucose 107 H, Calcium 8.5, Total Bilirubin 0.50, AST 19, ALT 28, Alkaline Phosphatase 95, Total Protein 6.8, Albumin 3.5, Globulin 3.3, Albumin/Globulin Ratio 1.1 Current Medications Acetaminophen (Acetaminophen 500 Mg Tablet) 1,000 mg PO Q8 [facility] Last Admin: 09/20/20 05:10 Dose: 1,000 mg Documented by: Bisacodyl (Bisacodyl 10 Mg Suppository) 10 mg RECTAL DAILY [facility] Last Admin: 09/20/20 00:12 Dose: 10 mg Documented by: Diazepam (Diazepam 5 Mg Tablet) 10 mg PO Q6H PRN PRN PRN Reason: Muscle Spasms Enteral Nutritional Formula (Ensure Surgery 237 Ml Liquid) 237 ml PO TIDCM [facility] Last Admin: 09/19/20 19:10 Dose: Not Given Documented by: Famotidine (Famotidine 20 Mg Tablet) 20 mg PO BID [facility] Last Admin: 09/19/20 21:00 Dose: 20 mg Documented by: Lactated Ringer's () 1,000 mls @ 100 mls/hr IV .Q10H [facility] Last Admin: 09/20/20 06:02 Dose: Not Given Documented by: Influenza Virus Vaccine Quadrival (Influenza Vaccine (6mos+)/Pf 0.5 Ml Syringe) 0.5 ml IM .ONCE ONE Stop: 09/20/20 10:01 Morphine Sulfate (Morphine 4 Mg/Ml Syringe) 2 - 4 mg IV Q2H PRN PRN PRN Reason: Pain Score 6-10 Last Admin: 09/20/20 06:36 Dose: 4 mg Documented by: Morphine Sulfate (Morphine 2 Mg/Ml Syringe) 2 - 4 mg IV Q2H PRN PRN PRN Reason: Pain Score 6-10 Last Admin: 09/19/20 20:05 Dose: 2 mg Documented by: Ondansetron HCl (Ondansetron 4 Mg/2 Ml Vial) 4 mg IV Q8H PRN PRN PRN Reason: NAUSEA Senna/Docusate Sodium (Senna/Docusate Sodium 1 Tablet) 2 tablet PO BID [facility] Last Admin: 09/19/20 21:00 Dose: 2 tablet Documented by: Sodium Chloride (0.9% Nacl Peripheral Flush Adult/Peds) 5 - 15 ml IV UD PRN PRN Reason: SALINE FLUSH Last Admin: 09/20/20 04:19 Dose: 10 ml Documented by: Sodium Chloride (0.9% Saline Lock 10 Ml Syringe) 10 - 40 ml IV UD PRN PRN Reason: SALINE FLUSH Tramadol HCl (Tramadol 50 Mg Tablet) 50 - 100 mg PO Q6H PRN PRN PRN Reason: Pain Score 4-5 Zolpidem Tartrate (Zolpidem Tartrate 5 Mg Tablet) 5 mg PO QHS PRN PRN PRN Reason: INSOMNIA Medical Necessity - Tobacco Use Smoking Status: Heavy Smoker (>10/day) Tobacco Use: Cigarettes Assessment/Plan All Active Problems DDD (degenerative disc disease), lumbosacral (Acute) This is a 50 years old male patient underwent elective L4-L5 lumbar laminectomy, L4 S1 posterior fusion, L4-L5 segmental internal fixation and L5-S1 segment internal fixation for recurrent herniated disc L4-L5 on the right and degenerative disc disease at L5-S1 and I am seeing this patient for postoperative medical management. #1 status post elective L4-L5 lumbar laminectomy, L4 S1 posterior fusion, L4-L5 segmental internal fixation and L5-S1 segment internal fixation for recurrent herniated disc L4-L5 on the right and degenerative disc disease at L5-S1. Postoperative day one. Patient is here with perioperative prophylaxis with IV cefazolin. He is on IV morphine as needed for pain as well as Valium. His vital signs are stable. Pain is manageable. Routine blood work revealed significant leukocytosis. Patient denied any symptoms suggestive of infection, has been afebrile. Spine surgeon is on the case. I think this leukocytosis reactive secondary to surgery and pain. Plan: We will repeat WBC at 1 PM and if it is trending down, patient can be discharged home today. #2 hypertension: Blood pressure stable, lisinopril held, can be continued upon discharge. #3 DVT prophylaxis: SCDs. This note was generated with [employer] dictation software. It may contain incorrect words, spelling, and punctuation that were not noted in checking the note before signing. Inpatient E&M: 14642 Subs Hosp L2
[2020-09-20 08:45] VITALS: BP 127/71; PULSE 66; RESP 18; TEMP 37.1; O2SAT 100
[2020-09-20] MEDS: Senna/Docusate Sodium 1 Tablet 2 TABLET PO ×2 (08:59→22:23)
[2020-09-20] MEDS: Famotidine 20 MG Tablet PO ×2 (08:59→22:23)
--- NOTE | 2020-09-20 10:40 | CASEMGMT ---
RN CM Face to Face with patient for initial transition planning/care coordination assessment. RN CM introduced self and role at [facility]. Patient lying in bed, alert and oriented. Patient willing to participate in assessment and is able to answer all questions appropriately. Care providers, pharmacy, and demographics verified. Patient wishes to discharge home, denies need for home health at this time. Patient states he has no further needs or concerns at this time. CM to follow for discharge planning needs that may arise. PCP: Kady Gaitan Specialists: Hao, spinal surgeon; Buck, pain [facility]erred [facility]acy: [facility] Insurance: [employer] Prescription Benefit: yes Living Will/HPOA: none LNOK: sister Living Arrangements: Patient lives with sister in a house on basement level. Patient states he has 9 steps and is able to ambulate stairs. Patient states he is independent at home. Transportation: sister DME/HHC: Patient denies DME at home or previous HHC. Will assist with obtaining script for FWW to provided to patient to fill if he feels need for walker. Disposition Plan: Patient to discharge home with family support and follow-up plans in place. Martita YEE, RN, CM
[2020-09-20] MEDS: traMADol 50 MG Tablet PO (11:29)
[2020-09-20 14:25] VITALS: BP 141/87; PULSE 88; RESP 18; TEMP 36.7; O2SAT 97
--- NOTE | 2020-09-20 15:59 | PCM.PN.BLA ---
Progress Note Mr. Shah is seen on rounds. Doing very well. He is walking quite a bit all over the hospital. States that his right leg pain is completely gone. And she is back dressing incision is dry and healing well. Anterior dressing is dry. Some slight bowel sounds and has been passing gas at this point I am not ready to feed him as he might go into a full ileus. This point his progress is excellent. STROKE Vital Signs/Narrative: Vital Signs Temp Pulse Resp BP Pulse Ox 09/20/20 14:25 98.0 F 88 18 141/87 H 97
[2020-09-20] MEDS: Morphine 2 MG/ML Syringe IV ×2 (19:33→22:33)
[2020-09-20 22:25] VITALS: BP 131/75; PULSE 91; RESP 16; TEMP 37.2; O2SAT 97
[2020-09-21] MEDS: Morphine 2 MG/ML Syringe IV (02:03)
[2020-09-21] MEDS: 0.9% NaCl Peripheral Flush Adult/Peds IV (02:03)
[2020-09-21 05:30] VITALS: BP 131/88; PULSE 75; RESP 18; TEMP 36.4; O2SAT 99
[2020-09-21] MEDS: Acetaminophen 500 MG Tablet 1000 MG PO (05:36)
[2020-09-21] MEDS: Lactated Ringers 1,000 ML 100 ML IV (08:46)
[2020-09-21] MEDS: traMADol 50 MG Tablet PO ×2 (08:51→15:28)
[2020-09-21] MEDS: Famotidine 20 MG Tablet PO (08:52)
[2020-09-21 08:54] VITALS: BP 126/77; PULSE 75; RESP 16; TEMP 36.3; O2SAT 98
[2020-09-21 11:38] LABS: Absolute Lymphocyte Count 2.67 X10^3/uL (0.83-4.51); Absolute Neutrophil Count 8.5 X10^3/uL (2.0-7.7); Basophil# 0.05 X10^3/uL; Basophil% 0.4 % (0-1); Eosinophils% 2.4 % (0-5); Hematocrit 35.3 % (40-54); Hemoglobin 11.7 g/dL (13.0-16.5); Lymphocyte # 2.67 X10^3/ul (4.0); Lymphocyte % 21.3 % (19-41); Mean Corp Hgb Conc 33.1 g/dL (32-36); Mean Corpuscular Hgb 30.2 pg (27.0-32.0); Mean Platelet Vol. 9.6 fl (6.2-12.0); Monocyte# 0.98 X10^3/uL; Monocyte% 7.8 % (0-10); NRBC Flagged by Analyzer 0 % (0-5); Neutrophil # 8.51 X10^3/uL (2.7-7.7); Neutrophil % 67.8 % (47-70); Platelet Count 291 K/mm3 (150-450); RBC Distribution Width CV 13.1 % (11.6-14.6); RBC Distribution Width SD 43.6 fl (35.1-43.9); Red Blood Count 3.88 M/mm3 (4.6-6.2); White Blood Count 12.6 K/mm3 (4.4-11.0)
--- NOTE | 2020-09-21 11:41 | PCM.PROGNOTE ---
Patient Problems: Active and Suspected Problems DDD (degenerative disc disease), lumbosacral (Acute) Subjective: Chief complaint: Follow-up after consultation for postoperative medical management. Patient seen and examined. No acute events overnight. He denies significant back pain, apart from discomfort at the surgical incision. No abdominal pain, he has been passing flatus. Denies nausea or vomiting. Denies fever or chills. His vital signs are stable. - Physical Exam Vitals/I&O's: Vital Signs Temp Pulse Resp BP Pulse Ox 97.4 F L 75 16 126/77 H 98 09/21/20 08:54 09/21/20 08:54 09/21/20 08:54 09/21/20 08:54 09/21/20 08:54 Oxygen Flow Rate (L/min) 6 Oxygen Delivery Method Room Air Weight: 232 lb 12.93 oz Body Mass Index (BMI) 28.3 Intake and Output for Last 24 Hours 09/19/20 09/20/20 09/21/20 23:59 23:59 23:59 Intake Total 2806 / 2806 3585 / 3585 1000 / 1000 Output Total 1920 / 1920 1250 / 1250 Balance 886 / 886 2335 / 2335 1000 / 1000 General: Alert, Oriented x3, Cooperative, No apparent distress HEENT: Atraumatic, PERRLA, EOMI, Normocephalic Oral: Moist Mucosa, No Gingival or Mucosal Lesions/ Ulcerations Neck: Supple, No JVD, Negative Carotid Bruits, Trachea Midline, Thyroid Normal Size and Texture Lungs: Clear to auscultation, Normal air movement, No rhonchi, No wheeze, No rales Cardiovascular: Regular rate, Regular Rhythm, Normal S1, Normal S2, PMI Normal Abdomen: Bowel Sounds Present, Soft, Non Tender, Non-Distended, No Hepato-splenomegaly Extremities: No clubbing, No cyanosis, No edema Skin: No rashes, No breakdown Lymphatic: No Cervical, Supraclavicular, or Inguinal Adenopathy Neurological: Cranial nerves II-XII grossly intact, Neuro grossly intact Psych/Mental Status: Normal Affect, Appropriate Microbiology Past 72 Hours 09/18/20 08:40 Interface Orders SARS-CoV-2 Antigen (Rapid) - Final Laboratory Results 09/20/20 13:04: WBC 17.0 H 09/21/20 11:25: WBC 12.6 H, RBC 3.88 L, Hgb 11.7 L, Hct 35.3 L, MCV 91.0, MCH 30.2, MCHC 33.1, RDW Std Deviation 43.6, RDW Coeff of Angelica 13.1, Plt Count 291, MPV 9.6, Immature Gran % (Auto) 0.300, Neut % (Auto) 67.8, Lymph % (Auto) 21.3, [place] % (Auto) 7.8, Eos % (Auto) 2.4, Baso % (Auto) 0.4, Absolute Neuts (auto) 8.5 H, Absolute Lymphs (auto) 2.67, Nucleated RBC % 0 Current Medications Acetaminophen (Acetaminophen 500 Mg Tablet) 1,000 mg PO Q8 [facility] Last Admin: 09/21/20 05:36 Dose: 1,000 mg Documented by: Bisacodyl (Bisacodyl 10 Mg Suppository) 10 mg RECTAL DAILY [facility] Last Admin: 09/21/20 08:46 Dose: Not Given Documented by: Diazepam (Diazepam 5 Mg Tablet) 10 mg PO Q6H PRN PRN PRN Reason: Muscle Spasms Enteral Nutritional Formula (Ensure Surgery 237 Ml Liquid) 237 ml PO TIDCM [facility] Last Admin: 09/21/20 10:14 Dose: Not Given Documented by: Famotidine (Famotidine 20 Mg Tablet) 20 mg PO BID [facility] Last Admin: 09/21/20 08:52 Dose: 20 mg Documented by: Lactated Ringer's () 1,000 mls @ 100 mls/hr IV .Q10H [facility] Last Admin: 09/21/20 08:46 Dose: 100 mls/hr Documented by: Morphine Sulfate (Morphine 4 Mg/Ml Syringe) 2 - 4 mg IV Q2H PRN PRN PRN Reason: Pain Score 6-10 Last Admin: 09/20/20 14:28 Dose: 4 mg Documented by: Morphine Sulfate (Morphine 2 Mg/Ml Syringe) 2 - 4 mg IV Q2H PRN PRN PRN Reason: Pain Score 6-10 Last Admin: 09/21/20 02:03 Dose: 2 mg Documented by: Ondansetron HCl (Ondansetron 4 Mg/2 Ml Vial) 4 mg IV Q8H PRN PRN PRN Reason: NAUSEA Senna/Docusate Sodium (Senna/Docusate Sodium 1 Tablet) 2 tablet PO BID [facility] Last Admin: 09/21/20 08:46 Dose: Not Given Documented by: Sodium Chloride (0.9% Nacl Peripheral Flush Adult/Peds) 5 - 15 ml IV UD PRN PRN Reason: SALINE FLUSH Last Admin: 09/21/20 02:03 Dose: 10 ml Documented by: Sodium Chloride (0.9% Saline Lock 10 Ml Syringe) 10 - 40 ml IV UD PRN PRN Reason: SALINE FLUSH Tramadol HCl (Tramadol 50 Mg Tablet) 50 - 100 mg PO Q6H PRN PRN PRN Reason: Pain Score 4-5 Last Admin: 09/21/20 08:51 Dose: 100 mg Documented by: Zolpidem Tartrate (Zolpidem Tartrate 5 Mg Tablet) 5 mg PO QHS PRN PRN PRN Reason: INSOMNIA Medical Necessity - Tobacco Use Smoking Status: Heavy Smoker (>10/day) Tobacco Use: Cigarettes Assessment/Plan All Active Problems DDD (degenerative disc disease), lumbosacral (Acute) This is a 50 years old male patient underwent elective L4-L5 lumbar laminectomy, L4 S1 posterior fusion, L4-L5 segmental internal fixation and L5-S1 segment internal fixation for recurrent herniated disc L4-L5 on the right and degenerative disc disease at L5-S1 and I am seeing this patient for postoperative medical management. #1 status post elective L4-L5 lumbar laminectomy, L4 S1 posterior fusion, L4-L5 segmental internal fixation and L5-S1 segment internal fixation for recurrent herniated disc L4-L5 on the right and degenerative disc disease at L5-S1. Postoperative day 2. Back pain is well managed, he is on morphine as needed as well as tramadol. Repeat CBC from today reviewed, WBC is trending down. Patient remained afebrile. From medical standpoint, patient can be discharged home. No change to his home medications. #2 probable ileus: Today, denies any abdominal pain, no nausea or vomiting. He has been passing flatus, watery stool as well. Recommend ambulation, advance diet as tolerated. #3 hypertension: Blood pressure stable, lisinopril held, can be continued upon discharge. #4 DVT prophylaxis: SCDs. This note was generated with Et3arrafation software. It may contain incorrect words, spelling, and punctuation that were not noted in checking the note before signing. Inpatient E&M: 47616 Subs Hosp L2
[2020-09-21 14:09] VITALS: BP 139/73; PULSE 94; RESP 16; TEMP 37.2; O2SAT 98
[2020-09-21 14:32] VITALS: O2SAT 98
--- NOTE | 2020-09-21 15:14 | DCINST_ITS ---
- Discharge Diagnoses Current Active Problems: Current Active and Chronic Problems DDD (degenerative disc disease), lumbosacral (Acute) You will use the following diet at home:: No restrictions Your food should be the consistency of: Regular Your liquids should be the consistency of: Regular/Thin Discharge Activity: Return to Normal Activity Weight Bearing Status: Full weight bearing Allergies/Adverse Reactions: Allergies acetaminophen [From Percocet] Allergy (Verified 09/19/20 06:05) Nausea oxycodone [From Percocet] Allergy (Verified 09/13/20 08:47) Hives propoxyphene [From Darvocet-N] Allergy (Verified 09/13/20 08:47) Hives pain killers Allergy (Intermediate, Uncoded 09/13/20 08:47) shakiness, rashes, itchy, difficulty with breathing Medications to take at Discharge multivitamin with iron 1 tab PO DAILY 08/14/20 lisinopril 5 mg tablet 10 mg PO DAILY tab 09/13/20 phosphorated carbohydrate oral solution 30 ml PO Q15M PRN 09/13/20 Primary Care Physician: Kady Gaitan [employer] SERGEANT, [employer] POLICE SERGEANT-C [Primary Care Provider] - Test Results: Test results from this visit will be discussed in further detail at your follow- up appointment, if applicable. Please Follow Up With: Joselo Bui DO When: 13 days
--- NOTE | 2020-09-21 15:18 | DS.PCM_ITS ---
Discharge Summary Date of Admission: 09/19/20 Date of Discharge: 09/21/20 Summary: Mr. Shah has been discharged on 09/21/2020. Of admission which was 09/19/1920 went 360 degree fusion at the L4-5 and L5S1 levels with repeat laminectomy at L4-5. I read the procedure well. After surgery he reported that his leg pain was completely gone. Been ambulating very well throughout the hospital it seems. His dressing was changed yesterday his drain was removed the incision was healing well. Directions regarding his dressings. They are to be removed on Friday and on Friday he may start taking showers. He already has his pain pills at home. He was given post 360 fusion protocol regarding his activities. He will be ambulating a lot. Was told to follow-up in my office in 13 days. Patient Problems: Active and Suspected Problems DDD (degenerative disc disease), lumbosacral (Acute) - Physical Exam Vitals/I&O's: Vital Signs Temp Pulse Resp BP Pulse Ox 98.9 F 94 16 139/73 H 98 09/21/20 14:09 09/21/20 14:09 09/21/20 14:09 09/21/20 14:09 09/21/20 14:32 Oxygen Flow Rate (L/min) 6 Oxygen Delivery Method Room Air Weight: 232 lb 12.93 oz Body Mass Index (BMI) 28.3 Intake and Output for Last 24 Hours 09/19/20 09/20/20 09/21/20 23:59 23:59 23:59 Intake Total 2806 / 2806 3585 / 3585 1350 / 1350 Output Total 1920 / 1920 1250 / 1250 200 / 200 Balance 886 / 886 2335 / 2335 1150 / 1150 Microbiology Past 72 Hours 09/18/20 08:40 Interface Orders SARS-CoV-2 Antigen (Rapid) - Final Laboratory Results 09/21/20 11:25: WBC 12.6 H, RBC 3.88 L, Hgb 11.7 L, Hct 35.3 L, MCV 91.0, MCH 30.2, MCHC 33.1, RDW Std Deviation 43.6, RDW Coeff of Angelica 13.1, Plt Count 291, MPV 9.6, Immature Gran % (Auto) 0.300, Neut % (Auto) 67.8, Lymph % (Auto) 21.3, [place] % (Auto) 7.8, Eos % (Auto) 2.4, Baso % (Auto) 0.4, Absolute Neuts (auto) 8 .5 H, Absolute Lymphs (auto) 2.67, Nucleated RBC % 0 Current Medications Acetaminophen (Acetaminophen 500 Mg Tablet) 1,000 mg PO Q8 [facility] Last Admin: 09/21/20 14:08 Dose: Not Given Documented by: Bisacodyl (Bisacodyl 10 Mg Suppository) 10 mg RECTAL DAILY [facility] Last Admin: 09/21/20 08:46 Dose: Not Given Documented by: Diazepam (Diazepam 5 Mg Tablet) 10 mg PO Q6H PRN PRN PRN Reason: Muscle Spasms Enteral Nutritional Formula (Ensure Surgery 237 Ml Liquid) 237 ml PO TIDCM [facility] Last Admin: 09/21/20 10:14 Dose: Not Given Documented by: Famotidine (Famotidine 20 Mg Tablet) 20 mg PO BID [facility] Last Admin: 09/21/20 08:52 Dose: 20 mg Documented by: Lactated Ringer's () 1,000 mls @ 100 mls/hr IV .Q10H [facility] Last Admin: 09/21/20 08:46 Dose: 100 mls/hr Documented by: Morphine Sulfate (Morphine 4 Mg/Ml Syringe) 2 - 4 mg IV Q2H PRN PRN PRN Reason: Pain Score 6-10 Last Admin: 09/20/20 14:28 Dose: 4 mg Documented by: Morphine Sulfate (Morphine 2 Mg/Ml Syringe) 2 - 4 mg IV Q2H PRN PRN PRN Reason: Pain Score 6-10 Last Admin: 09/21/20 02:03 Dose: 2 mg Documented by: Ondansetron HCl (Ondansetron 4 Mg/2 Ml Vial) 4 mg IV Q8H PRN PRN PRN Reason: NAUSEA Senna/Docusate Sodium (Senna/Docusate Sodium 1 Tablet) 2 tablet PO BID [facility] Last Admin: 09/21/20 08:46 Dose: Not Given Documented by: Sodium Chloride (0.9% Nacl Peripheral Flush Adult/Peds) 5 - 15 ml IV UD PRN PRN Reason: SALINE FLUSH Last Admin: 09/21/20 02:03 Dose: 10 ml Documented by: Sodium Chloride (0.9% Saline Lock 10 Ml Syringe) 10 - 40 ml IV UD PRN PRN Reason: SALINE FLUSH Tramadol HCl (Tramadol 50 Mg Tablet) 50 - 100 mg PO Q6H PRN PRN PRN Reason: Pain Score 4-5 Last Admin: 09/21/20 08:51 Dose: 100 mg Documented by: Zolpidem Tartrate (Zolpidem Tartrate 5 Mg Tablet) 5 mg PO QHS PRN PRN PRN Reason: INSOMNIA
== END 2020-09-21 15:31 | disposition home or self-care (01) | DRG 455 ==
LOC: ACINP 05:33 → MS3 16:32
PROVIDERS: Anesthesiology; Hospitalist; Internal Medicine; Admitting Provider Orthopaedic Surgery; PCP Nurse Practitioner Family; Referring Provider Orthopaedic Surgery; Visit Provider Orthopaedic Surgery
PROC: 0SG00A0 Fusion of Lumbar Vertebral Joint with Interbody Fusion Device, Anterior Approach, Anterior Column, Open Approach (ICD-10-PCS; principal; 2020-09-19 07:00)
DX: M51.26 Other intervertebral disc displacement, lumbar region (principal); M51.37 Other intervertebral disc degeneration, lumbosacral region; M51.36 Other intervertebral disc degeneration, lumbar region; Z23 Encounter for immunization; Z20.828 Contact with and (suspected) exposure to other viral communicable diseases; F17.210 Nicotine dependence, cigarettes, uncomplicated; I10 Essential (primary) hypertension; G89.29 Other chronic pain
CPT/HCPCS: 36415; 72020; 80048; 80053; 82962; 83735; 85025; 85048; 86703; 86704; 86705; 86706; 86708; 86709; 86803; 87081; 87340; 87426; 93005; 94762; 99251; C9803; J7120; 90686; A4216; G0463; J2405

== ENCOUNTER → 2021-02-13 09:36 | Outpatient (CLI) | payer BC, SELFPAY ==
[2021-02-07 13:32] VITALS: BMI 28.3
[2021-02-13 10:55] LABS: Absolute Lymphocyte Count 3.44 X10^3/uL (0.83-4.51); Basophil# 0.07 X10^3/uL; Basophil% 0.5 % (0-1); Eosinophil# 0.14 X10^3/uL; Hematocrit 47.8 % (40-54); Hemoglobin 15.5 g/dL (13.0-16.5); Lymphocyte # 3.44 X10^3/ul (0.83-4.51); Lymphocyte % 25.6 % (19-41); Mean Corp Hgb Conc 32.4 g/dL (32-36); Mean Corpuscular Hgb 29.3 pg (27.0-32.0); Mean Corpuscular Volume 90.4 fL (80-94); Mean Platelet Vol. 9.8 fl (6.2-12.0); Monocyte# 0.73 X10^3/uL; Monocyte% 5.4 % (0-10); NRBC Flagged by Analyzer 0 % (0-5); Neutrophil # 8.97 X10^3/uL (2.7-7.7); Neutrophil % 66.7 % (47-70); Platelet Count 416 K/mm3 (150-450); RBC Distribution Width CV 13.7 % (11.6-14.6); RBC Distribution Width SD 45.5 fl (35.1-43.9); Red Blood Count 5.29 M/mm3 (4.6-6.2); White Blood Count 13.5 K/mm3 (4.4-11.0)
[2021-02-13 11:28] LABS: Vitamin D,25 Hydroxy 20.3 ng/mL
[2021-02-13 11:45] LABS: ALB/GLOB Ratio 0.8 RATIO (0.9-2.4); AST(SGOT) 19 U/L (15-37); Alanine Aminotransfer ALT/SGPT 38 U/L (16-61); Albumin, Serum 3.8 g/dL (3.2-5.0); Alkaline Phosphatase 135 U/L (45-117); Anion Gap 7 (5-15); BUN 22 mg/dL (7-18); BUN/Creat Ratio 16.5 RATIO (10-20); Calcium,Total 9.3 mg/dL (8.5-10.1); Chloride 109 mmol/L (98-107); Cholesterol 287 mg/dL (200); Creatinine, Serum 1.33 mg/dL (0.70-1.30); EST Glomerular Filtration Rate 60 mL/min (>60); Est Glom Filt Rate - Afr Amer 73 mL/min (>60); Globulin 4.5 g/dL (2.2-4.2); Glucose 98 mg/dL (74-106); High Density Lipoprotein 64 mg/dL; Potassium 4.1 mmol/L (3.5-5.1); Protein, Total 8.3 g/dL (6.4-8.2); Sodium Level 140 mmol/L (136-145); Thyroid Stim Hormone (TSH) 1.63 uIU/mL (0.358-3.74); Triglycerides 100 mg/dL; Very Low Density Lipoprotein 20 mg/dL (5-40)
== END ==
LOC: LAB 09:40
PROVIDERS: PCP Internal Medicine; Referring Provider Internal Medicine; Visit Provider Internal Medicine
DX: I10 Essential (primary) hypertension (principal); S23.9XXA Sprain of unspecified parts of thorax, initial encounter; R11.0 Nausea; E55.9 Vitamin D deficiency, unspecified; R10.9 Unspecified abdominal pain; G89.29 Other chronic pain
CPT/HCPCS: 36415; 80053; 80061; 82306; 84443; 85025

== ENCOUNTER 2021-03-05 05:40 | Day surgery (SDC) | payer BC, SELFPAY ==
[2021-02-15 13:31] VITALS: BMI 29.9
[2021-03-05 06:22] VITALS: BP 128/77; PULSE 56; RESP 16; TEMP 36.4; O2SAT 100; BMI 28.7
[2021-03-05] MEDS: Lactated Ringers 1,000 ML 100 ML IV (06:30)
--- NOTE | 2021-03-05 06:53 | PCM.HP.BLA ---
History and Physical Date of Admission: 03/05/21 Date of Service: 02/15/21 MR#:[id number] Acct:[id number] Name: EUGENIO WEBER :1970 Age/Sex: 50/M Rep #:[id number] Provider:Dr. 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 Is patient in pain?: No Allergies acetaminophen [From Percocet] Allergy (Verified 02/15/21 13:32) Nausea oxycodone [From Percocet] Allergy (Verified 02/15/21 13:32) Hives propoxyphene [From Darvocet-N] Allergy (Verified 02/15/21 13:32) Hives pain killers Allergy (Intermediate, Uncoded 02/15/21 13:32) shakiness, rashes, itchy, difficulty with breathing Medications multivitamin with iron 1 tab PO DAILY 08/14/20 [History Confirmed 02/15/21] lisinopril 20 mg tablet 20 mg PO DAILY #90 tab 02/07/21 [Rx Confirmed 02/15/21] pantoprazole 40 mg tablet,delayed release 40 mg PO DAILY #30 tab 02/15/21 [Rx Confirmed 02/15/21] sucralfate 1 gram tablet 1 g PO QACHS 14 Days #56 tab 02/15/21 [Rx Confirmed 02/15/21] PFSH Medical History Back pain with history of spinal surgery Chronic abdominal pain Chronic nausea Nausea Surgical History History of arthroscopic knee surgery History of fusion of cervical spine Family History Other No pertinent family history Social History Smoking Status: Heavy Smoker (>10/day) Tobacco: How many years used: 25 alcohol intake: never substance use type: other details: medical marijuana what type of physical activity do you participate in: walking and bicycling HPI HPI HPI: EUGENIO WEBER, is a 50 M who presents to the office today for nausea. Patient states he has had nausea for years and typically had attributed that to his back pain. However he has had surgery for his back as well as injections and his back pain is much improved. Patient states that from 2011 2018 he would take a bottle of Advil about 80 tabs every week and he would not always take this with food so that he would take 3 or 4 and then his next break at work will take another 3 or 4 and that was maybe only 2-1/2 hours in between. Patient states he has not really taken any Advil since 2018. Patient states he is able to eat but just always feels nauseous. Patient states coughing will set him off with one sip he also complains for the last week of having burning up his esophagus as well. Patient states he did try Tagamet once but he had pain with that so he never took it again. Patient denies any abdominal pain except when his PCP pushed on his stomach in the office recently. Patient's never had a previous colonoscopy or EGD. Patient denies any family history of colon cancer. Patient states he has bowel movements daily denies any blood and occasionally does have some constipation where he does strain. ROS General General: Yes fatigue; No weight change, appetite, colon cancer, breast cancer or weakness HEENT HEENT: No difficulty swallowing, eye injury, eye surgery, swollen glands or hoarseness Endo Endocrine: No thyroid disease, diabetes mellitus, thyroid cancer, Hair loss, heat intolerance or cold intolerance Skin Skin: No rash or changing moles Musc Musculoskeletal: Yes back problems and joint pain; No arthritis, rheumatoid arthritis or gout Cardio Cardiovascular: Yes high blood pressure; No murmur, pacemaker, heart disease, atrial fibrillation, heart attack, heart stent, palpitations, shortness of breat with exertion or chest pain Psych Psychiatric: Yes anxiety; No depression or hearing voices Resp Respiratory: No shortness of breath, No sleep apnea, No cough, No COPD, No asthma, No emphysema and No wheezing Gastro Gastrointestinal: Yes abdominal pain, Yes nausea or vomiting, Yes diarrhea, Yes constipation, No blood in stool, Yes acid reflux, No hemorrhoids, No ulcers, No gallbladder problem and No black,tarry stools Octavio Hematologic: No blood thinners, No blood disorders, No bleeding, No anemia and No blood clots Neuro Neurologic: No weakness Exam Const General: cooperative, healthy appearing, comfortable and no acute distress Neck Neck: normal visual inspection Resp Effort & Inspection: normal respiratory effort Cardio Rate: regular rate GI Inspection: non-distended Palpation: soft, no guarding and nontender Skin General: no rashes or lesions noted Neuro General: patient oriented x3 Psych Affect: normal affect COVID (Procedure Consent) Procedure Criteria Procedure Criteria: Yes Elective The surgeon/proceduralist and patient have discussed in detail the risk of exposure to and/or potential harm posed by the COVID-19 virus with having a surgery/procedure at this time versus the risk of delaying the surgery/procedure. It is not possible to know either the risk of delaying the surgery or procedure or chance of getting an infection with perfect accuracy, but a joint decision was made between the patient and the surgeon/proceduralist to proceed at this time with the scheduled surgery/procedure as indicated on the consent form. Assessment and Plan Assessment and Plan (1) Chronic nausea: Status: Chronic (2) GERD (gastroesophageal reflux disease): Status: Acute (3) Screening for colon cancer: Plan - Dr. Kateryna Lange MD: Discussed with patient that would put him on Protonix 40 mg p.o. daily also Carafate. To see if this would improve his nausea as I do think he does have reflux/gastritis. Did advise patient to continue to stay away from NSAIDs or at the very least take with food. Did also review with patient adequate fiber intake is about 30 g daily. I have discussed the above with the patient. I have offered the patient EGD and colonoscopy for evaluation. I have explained the risks/benefits of the procedure and described the procedure. I have discussed the risks with the patient, including but not limited to: infection, bleeding, perforation of the GI tract requiring emergency surgery, inability to complete the procedure, injury to any internal organs, complications of anesthesia, etc. - the patient understands and agrees to proceed. I have answered all the patient's questions to the patient's satisfaction and the patient has no further questions. The patient has been given instructions for the colon cleansing preparation. 1 day prep, MiraLAX Dulcolax split prep. Kateryna Lange M.D. Pager: [phone] [facility] [address] [place] [address], [address] [place] [id number] Office: [phone] Plan Details Other Medications: New: sucralfate Take 1 hour before meals and at bedtime 1 g PO QACHS 2 weeks 56 tabs 0RF pantoprazole 40 mg PO DAILY 30 tabs 3RF Other Orders: Orders: Colonoscopy Today EGD Today Coding Level of Care Code Off vis,new,level 3 Diagnoses Chronic nausea R11.0 GERD (gastroesophageal reflux disease) K21.9 Screening for colon cancer Z12.11 02/15/21 1439<Electronically signed by Kateryna Lange MD>Date Kateryna Lange MD
--- NOTE | 2021-03-05 07:00 | EGD_PTH ---
PATIENT: EUGENIO WEBER LOC: EN U#:[id number] AGE/SX: 50/M ROOM: RE03/05/[address]: Dr. Kateryna Lange MD : 1970 BED: DIS: 03/05/2021 SPEC #: [id number] RECD: 03/05/21 09:29 STATUS: MOLLY KACEY #: [id number] MCKENNA: 03/05/21 07:[address]: Kateryna Lange DEPT: SURGICAL PATHOLOGY RECD BY: Linda Levin ENTERED: 03/05/21 09:50 SP TYPE: EGD BIOPSY WALTER DR: Dr. Nayeli Puente MD Tissues: A - Gastric mucous membrane B - Gastric mucous membrane C - Sigmoid colon biopsy Procedures: Special Stain Group II Surgery Specimen Level IV Alcian Blue/PAS (control) HEADER OPERATION: [place] [place] DIAGNOSIS: GERD, chronic nausea, screening TISSUE SUBMITTED: A - Antral biopsy, H. pylori and path, B - GE junction biopsy, C - Sigmoid colon polyp MICROSCOPIC DIAGNOSIS A. Gastric antrum, biopsy: Minimal chronic inflammation. See comment. B. Gastroesophageal junction, biopsy: Mild chronic inflammation. Focal changes of reflux. No evidence of goblet cell metaplasia. See comment. C. Sigmoid colon polyp, biopsy: Tubular adenoma. AM:talya 03/06/2021 COMMENT A. The results of immunohistochemistry for Helicobacter pylori will be reported separately ([id number]). B. Alcian blue/PAS stain with matched control supports the above diagnosis. MICROSCOPIC DESCRIPTION Slides are reviewed. GROSS DESCRIPTION A - Received in fixative is one container labeled with the patient's name and designated antral biopsy. The specimen consists of one irregular fragment of light velasquez soft tissue that measures 0.3 x 0.3 x 0.1 cm. The specimen is totally submitted in one cassette. B - Received in fixative is one container labeled with the patient's name and designated GE junction biopsy. The specimen consists of two irregular fragments of light velasquez soft tissue that in aggregate measure 0.5 x 0.3 x 0.1 cm. The specimen is totally submitted in one cassette. C - Received in fixative is one container labeled with the patient's name and designated polyp sigmoid colon. The specimen consists of one irregular fragment of light velasquez soft tissue that measures 0.4 x 0.3 x 0.1 cm. The specimen is totally submitted in one cassette. / SJ:rg 03/05/21 TC:3 CPT: 70339 x3, 15039
--- NOTE | 2021-03-05 07:00 | IMM_PTH ---
PATIENT: EUGENIO WEBER LOC: [facility] U#:[id number] AGE/SX: 50/M ROOM: RE03/05/[address]: Dr. Kateryna Lange MD : 1970 BED: DIS: 03/05/2021 SPEC #: [id number] RECD: 03/05/21 09:48 STATUS: MOLLY KACEY #: [id number] MCKENNA: 03/05/21 07:[address]: Kateryna Lange DEPT: IMMUNOHISTOCHEMISTRY RECD BY: Kindra Jin ENTERED: 03/05/21 09:49 SP TYPE: IMMUNO OTHR DR: Dr. Nayeli Puente MD Tissues: A - Stomach, NOS Procedures: H Pylori (initial) PHYSICIAN & INSTITUTION [place] [id number] SPECIMEN INFORMATION: Tissue Source: A ? Antral biopsy Clinical Info: GERD, chronic nausea, screening Specimen Number: [id number] CPT code: 73049 METHODOLOGY: Deparaffinized sections of prefer/formalin-fixed tissue or PAP/DQ stained slides are incubated with monoclonal/polyclonal antibodies/oligonucleotide probes. Localization is made via biotin free immunoperoxidase method. Appropriate controls are performed and reacted as expected. Results on target cell population are indicated in the following table: RESULTS: ANTIBODY / CLONE RESULT Block A H Pylori (polyclonal) negative These tests were developed and their performance characteristics determined by [facility]. They may not have been cleared or approved by the U.S. Food and Drug Administration. The FDA has determined that such clearance or approval is not necessary. INTERPRETATION: A. Antral biopsy: Negative for Helicobacter pylori organisms. AM:talya 03/06/2021
[2021-03-05 07:36] VITALS: BP 104/66; BP 128/77; PULSE 56; RESP 18; TEMP 35.9; O2SAT 98
--- NOTE | 2021-03-05 07:39 | OP.CCLET_ITS ---
03/05/2021 Nayeli Puente [facility] [address] [place] [address] Re : Upper GI endoscopy procedure for Chano Shah Dear Dr. Puente This procedure was performed on Friday, March 05, 2021. My impressions and recommendations are as follows: Impressions : - Z-line irregular, 40 cm from the incisors. Biopsied. - 4 cm hiatal hernia. - Erythematous mucosa in the antrum. Biopsied. - Normal examined duodenum. Recommendations : - Await pathology results. - Discharge patient to home. - Resume previous diet. - Continue present medications. My findings are described in the full procedure note, which is enclosed. If I can be of further assistance, please feel free to contact me at Doctor phone number(s): , Work: . Sincerely, MD Kateryna Medina MD 03/05/2021 7:38:07 AM This report has been signed electronically.
--- NOTE | 2021-03-05 07:39 | OP.EGD_ITS ---
Patient Name: Chano Shah Procedure Date: 03/05/2021 6:55 AM Date of : 1970 Age: 50 Procedure: Upper GI endoscopy Indications: Suspected esophageal reflux, Nausea Providers: Kateryna Lange MD Referring MD: Kateryna Lange MD Medicines: Monitored Anesthesia Care Patient Profile: This is a 50 year old male. Complications: No immediate complications. Procedure: Pre-Anesthesia Assessment: - Prior to the procedure, a History and Physical was performed, and patient medications and allergies were reviewed. The patient's tolerance of previous anesthesia was also reviewed. The risks and benefits of the procedure and the sedation options and risks were discussed with the patient. All questions were answered, and informed consent was obtained. Prior Anticoagulants: The patient has taken no previous anticoagulant or antiplatelet agents. ASA Grade Assessment: Per anesthesia. After reviewing the risks and benefits, the patient was deemed in satisfactory condition to undergo the procedure. After obtaining informed consent, the endoscope was passed under direct vision. Throughout the procedure, the patient's blood pressure, pulse, and oxygen saturations were monitored continuously. The gastroscope was introduced through the mouth, and advanced to the second part of duodenum. The upper GI endoscopy was accomplished without difficulty. The patient tolerated the procedure well. Scope In: 7:07:03 AM Scope Out: 7:11:25 AM Total Procedure Duration Time 0 hours 4 minutes 22 seconds Findings: The Z-line was irregular and was found 40 cm from the incisors. Biopsies were taken with a cold forceps for histology. A 4 cm hiatal hernia was present. Diffuse mildly erythematous mucosa without bleeding was found in the gastric antrum. Biopsies were taken with a cold forceps for histology. Biopsies were taken with a cold forceps for Helicobacter pylori cultures. The examined duodenum was normal. Impression: - Z-line irregular, 40 cm from the incisors. Biopsied. - 4 cm hiatal hernia. - Erythematous mucosa in the antrum. Biopsied. - Normal examined duodenum. Recommendation: - Await pathology results. - Discharge patient to home. - Resume previous diet. - Continue present medications. Procedure Code(s): --- Professional --- 27774, Esophagogastroduodenoscopy, flexible, transoral; with biopsy, single or multiple Diagnosis Code(s): --- Professional --- K22.8, Other specified diseases of esophagus K44.9, Diaphragmatic hernia without obstruction or gangrene K31.89, Other diseases of stomach and duodenum R11.0, Nausea CPT copyright 2017 [employer]. All rights reserved. The codes documented in this report are preliminary and upon timber appraiser review may be revised to meet current compliance requirements. MD Kateryna Medina MD 03/05/2021 7:38:07 AM This report has been signed electronically. Number of Addenda: 0 Note Initiated On: 03/05/2021 6:55 AM
[2021-03-05 07:40] VITALS: BP 112/76; BP 128/77; PULSE 67; RESP 18; O2SAT 97
--- NOTE | 2021-03-05 07:42 | OP.COLON_ITS ---
Patient Name: Chano Shah Procedure Date: 03/05/2021 7:12 AM Date of : 1970 Age: 50 Procedure: Colonoscopy Indications: Screening for colorectal malignant neoplasm Providers: Kateryna Lange MD Referring MD: Kateryna Lange MD Medicines: Monitored Anesthesia Care Patient Profile: This is a 50 year old male. Last Colonoscopy: none. The patient's first colonoscopy is today. Complications: No immediate complications. Procedure: Pre-Anesthesia Assessment: - Prior to the procedure, a History and Physical was performed, and patient medications and allergies were reviewed. The patient's tolerance of previous anesthesia was also reviewed. The risks and benefits of the procedure and the sedation options and risks were discussed with the patient. All questions were answered, and informed consent was obtained. Prior Anticoagulants: The patient has taken no previous anticoagulant or antiplatelet agents. ASA Grade Assessment: Per anesthesia. After reviewing the risks and benefits, the patient was deemed in satisfactory condition to undergo the procedure. After I obtained informed consent, the scope was passed under direct vision. Throughout the procedure, the patient's blood pressure, pulse, and oxygen saturations were monitored continuously. The colonoscope was introduced through the anus and advanced to the cecum, identified by the appendiceal orifice, ileocecal valve and palpation. The colonoscopy was performed without difficulty. The patient tolerated the procedure well. The quality of the bowel preparation was good. Scope In: 7:14:35 AM Scope Withdrawal Time 0 hours 11 minutes 30 seconds Scope Out: 7:31:01 AM Total Procedure Duration Time 0 hours 16 minutes 26 seconds Findings: Hemorrhoids were found on perianal exam. Non-bleeding internal hemorrhoids were found. The hemorrhoids were Grade I (internal hemorrhoids that do not prolapse). A less than 5 mm polyp was found in the sigmoid colon. The polyp was sessile. The polyp was removed with a cold biopsy forceps. Resection and retrieval were complete. Multiple small-mouthed diverticula were found in the sigmoid colon, descending colon and transverse colon. The exam was otherwise without abnormality. Impression: - Hemorrhoids found on perianal exam. - Non-bleeding internal hemorrhoids. - One less than 5 mm polyp in the sigmoid colon, removed with a cold biopsy forceps. Resected and retrieved. - Diverticulosis in the sigmoid colon, in the descending colon and in the transverse colon. - The examination was otherwise normal. Recommendation: - Discharge patient to home. - High fiber diet. - Continue present medications. - Await pathology results. - Repeat colonoscopy in 5 years for surveillance based on pathology results. Procedure Code(s): --- Professional --- 50594, PT, Colonoscopy, flexible; with biopsy, single or multiple Diagnosis Code(s): --- Professional --- Z12.11, Encounter for screening for malignant neoplasm of colon K64.0, First degree hemorrhoids D12.5, Benign neoplasm of sigmoid colon K57.30, Diverticulosis of large intestine without perforation or abscess without bleeding CPT copyright 2017 [employer]. All rights reserved. The codes documented in this report are preliminary and upon petroleum refinery worker review may be revised to meet current compliance requirements. MD Kateryna Medina MD 03/05/2021 7:41:52 AM This report has been signed electronically. Number of Addenda: 0 Note Initiated On: 03/05/2021 7:12 AM
--- NOTE | 2021-03-05 07:42 | OP.CCLET_ITS ---
03/05/2021 Nayeli Puente [facility] [address] [place] [address] Re : Colonoscopy procedure for Chano Shah Dear Dr. Puente This procedure was performed on Friday, March 05, 2021. My impressions and recommendations are as follows: Impressions : - Hemorrhoids found on perianal exam. - Non-bleeding internal hemorrhoids. - One less than 5 mm polyp in the sigmoid colon, removed with a cold biopsy forceps. Resected and retrieved. - Diverticulosis in the sigmoid colon, in the descending colon and in the transverse colon. - The examination was otherwise normal. Recommendations : - Discharge patient to home. - High fiber diet. - Continue present medications. - Await pathology results. - Repeat colonoscopy in 5 years for surveillance based on pathology results. My findings are described in the full procedure note, which is enclosed. If I can be of further assistance, please feel free to contact me at Doctor phone number(s): , Work: . Sincerely, MD Kateryna Medina MD 03/05/2021 7:41:52 AM This report has been signed electronically.
[2021-03-05 07:45] VITALS: BP 112/76; BP 128/77; PULSE 61; RESP 18; O2SAT 100
[2021-03-05 07:51] VITALS: BP 113/86; BP 128/77; PULSE 50; RESP 18; TEMP 35.6; O2SAT 100
[2021-03-05 08:09] VITALS: BP 128/77
== END 2021-03-05 08:10 ==
LOC: EN 05:44 → AC 05:44
PROVIDERS: PCP Internal Medicine; Referring Provider Surgery; Visit Provider Surgery
PROC: 0DJD8ZZ Inspection of Lower Intestinal Tract, Via Natural or Artificial Opening Endoscopic (ICD-10-PCS; CPT 45378; principal; 2021-03-05 06:55)
DX: D12.5 Benign neoplasm of sigmoid colon (principal); K57.30 Diverticulosis of large intestine without perforation or abscess without bleeding; K64.0 First degree hemorrhoids; K64.4 Residual hemorrhoidal skin tags; K44.9 Diaphragmatic hernia without obstruction or gangrene; K31.89 Other diseases of stomach and duodenum; F17.200 Nicotine dependence, unspecified, uncomplicated; K21.9 Gastro-esophageal reflux disease without esophagitis; Z79.899 Other long term (current) drug therapy; Z68.28 Body mass index [BMI] 28.0-28.9, adult
CPT/HCPCS: 43239; 45380; 87426; 88305; 88313; 88342; C9803; J7120

== ENCOUNTER → 2021-06-28 07:40 | Outpatient (CLI) | payer BC, SELFPAY ==
[2021-02-07 13:32] VITALS: BMI 28.3
--- NOTE | 2021-06-28 07:43 | MRI_ITS ---
STUDY: MRI LUMBAR SPINE WITH AND WITHOUT CONTRAST REASON FOR EXAM: Male, 51 years old. pain TECHNIQUE: Standardized fat and water weighted pulse sequences were obtained in the sagittal and axial planes. IV yes yes was administered for the contrast portion of the examination. COMPARISON: 06/02/2020 FINDINGS: T12-L1: Normal endplates. Normal disc height, hydration and morphology. Normal bilateral facet joints. Normal central canal and bilateral lateral recesses. Normal bilateral intervertebral neural foramina. Normal lumbar lordosis. There is no substantial scoliosis. Normal conus medullaris that terminates at the T12/L1. L1-2: Disc desiccation but no disc protrusion, spinal stenosis, or neural foraminal stenosis. L2-3: Normal endplates. Normal disc height, hydration and morphology. Normal bilateral facet joints. Normal central canal and bilateral lateral recesses. Normal bilateral intervertebral neural foramina. L3-4: Normal endplates. Normal disc height, hydration and morphology. Normal bilateral facet joints. Normal central canal and bilateral lateral recesses. Normal bilateral intervertebral neural foramina. L4-5: Interval discectomy and interbody fusion, anterior and posterior fixation with anatomic alignment with no spinal stenosis or neural foraminal stenosis. L5-S1: Interval discectomy, interbody fusion, anterior and posterior fixation with anatomic alignment with no spinal stenosis or neural foraminal stenosis. Normal visualized sacral ala. Normal visualized paraspinous soft tissue structures. There is no demonstrated abnormal enhancement. MRI/Spine Lumbar W/WO Contrast IMPRESSION: Postsurgical changes L4/L5 and L5/S1 but no spinal stenosis or neural foraminal stenosis. Electronically Signed: Josh Lawson MD at 17:02 EDT Tel , Service support ,
--- NOTE | 2021-06-28 07:51 | CT_ITS ---
STUDY: CT ABDOMEN AND PELVIS WITH CONTRAST REASON FOR EXAM: Male, 51 years old. Chronic nausea. Lower abdominal pain. RADIATION DOSAGE (If Supplied By Facility): CTDIvol = ( 25.06 ) mGy, DLP = ( 1577.57 ) mGycm TECHNIQUE: Transaxial images were obtained from the dome of the diaphragm to the symphysis pubis with oral contrast. 100 ml of ISOVUE-300 contrast was administered. Sagittal and coronal images were reconstructed. Individualized dose optimization techniques were used for this CT. COMPARISON: None. FINDINGS: The visualized lung bases are clear. The visualized portions of the heart and pericardium are within normal limits. There are no calcified gallstones present. The liver is within normal limits. There are no suspicious hepatic lesions. The spleen is normal in size. The pancreas is within normal limits. The adrenal glands are within normal limits. There are no renal or ureteral stones. There is no hydronephrosis. There are no focal renal lesions. Normal visualized stomach. There is no bowel obstruction or inflammation. The appendix is visualized and appears normal. The aorta is normal in caliber. There is no abdominal or pelvic free air, free fluid, fluid collection or lymphadenopathy. There are no destructive osseous lesions. There are postsurgical changes from fusion of L4-S1. CT/Abdomen/Pelvis WITH Contrast IMPRESSION: No acute abdominal or pelvic pathology. Electronically Signed: Gaurav Kaur MD at 15:23 EDT Tel , Service support ,
[2021-06-28 08:11] LABS: CREATININE FINGERSTICK 0.8 mg/dL (0.70-1.30); EGFR FINGERSTICK > 60.0000 mL/min (>60)
== END ==
PROVIDERS: PCP Internal Medicine; Referring Provider Internal Medicine; Visit Provider Internal Medicine
DX: R10.30 Lower abdominal pain, unspecified (principal); R11.0 Nausea; M51.37 Other intervertebral disc degeneration, lumbosacral region; M54.9 Dorsalgia, unspecified; Z98.890 Other specified postprocedural states
CPT/HCPCS: 72158; 74177; A9575; Q9967; A4216

== ENCOUNTER 2021-10-11 10:06 | Outpatient (CLI) | payer BC, SELFPAY ==
[2021-10-11 12:24] LABS: Absolute Lymphocyte Count 3.38 X10^3/uL (0.83-4.51); Absolute Neutrophil Count 6.2 X10^3/uL (2.0-7.7); Basophil# 0.09 X10^3/uL; Basophil% 0.8 % (0-1); Eosinophils% 4.6 % (0-5); Hematocrit 44.9 % (40-54); Hemoglobin 14.7 g/dL (13.0-16.5); Lymphocyte # 3.38 X10^3/ul (0.83-4.51); Lymphocyte % 30.9 % (19-41); Mean Corp Hgb Conc 32.7 g/dL (32-36); Mean Corpuscular Hgb 30.1 pg (27.0-32.0); Mean Platelet Vol. 10.2 fl (6.2-12.0); Monocyte# 0.71 X10^3/uL; Monocyte% 6.5 % (0-10); NRBC Flagged by Analyzer 0 % (0-5); Neutrophil # 6.22 X10^3/uL (2.7-7.7); Neutrophil % 56.8 % (47-70); Platelet Count 381 K/mm3 (150-450); RBC Distribution Width CV 13.4 % (11.6-14.6); RBC Distribution Width SD 45.4 fl (35.1-43.9); Red Blood Count 4.88 M/mm3 (4.6-6.2); White Blood Count 10.9 K/mm3 (4.4-11.0)
[2021-10-11 13:03] LABS: Vitamin D,25 Hydroxy 16.5 ng/mL
[2021-10-11 14:07] LABS: AST(SGOT) 24 U/L (15-37); Alanine Aminotransfer ALT/SGPT 36 U/L (16-61); Alkaline Phosphatase 126 U/L (45-117); Anion Gap 7 (5-15); BUN 15 mg/dL (7-18); BUN/Creat Ratio 13.6 RATIO (10-20); Calcium,Total 9.4 mg/dL (8.5-10.1); Chloride 104 mmol/L (98-107); EST Glomerular Filtration Rate 75 mL/min (>60); Est Glom Filt Rate - Afr Amer 90 mL/min (>60); Globulin 4.2 g/dL (2.2-4.2); Glucose 97 mg/dL (74-106); PSA,Total - Annual Screen 2.17 ng/mL (0.00-4.00); Potassium 4.1 mmol/L (3.5-5.1); Protein, Total 8.2 g/dL (6.4-8.2); Sodium Level 136 mmol/L (136-145)
== END 2021-10-11 23:59 | disposition short-term general hospital (02) ==
LOC: LAB 10:08
PROVIDERS: PCP Internal Medicine; Referring Provider Internal Medicine; Visit Provider Internal Medicine
DX: I10 Essential (primary) hypertension (principal); M99.01 Segmental and somatic dysfunction of cervical region; M99.02 Segmental and somatic dysfunction of thoracic region; M51.37 Other intervertebral disc degeneration, lumbosacral region; K21.9 Gastro-esophageal reflux disease without esophagitis; E55.9 Vitamin D deficiency, unspecified; R11.0 Nausea; Z12.5 Encounter for screening for malignant neoplasm of prostate
CPT/HCPCS: 36415; 80053; 82306; 84153; 85025; G0103

== ENCOUNTER 2021-12-13 07:25 | Outpatient (RCR) | payer BC, SELFPAY ==
--- NOTE | 2021-12-17 10:17 | HP.FCE ---
Floor (Occasional 1-33% of Day): 25 lbs Floor (Frequent 34-66% of Day): 12.5 lbs Floor (Constant 67-100% of Day): NA Floor PDL: Sedentary Knee (Occasional 1-33% of Day): 25 lbs Knee (Frequent 34-66% of Day): 12.5 lbs Knee (Constant 67-100% of Day): NA Knee PDL: Sedentary Waist (Occasional 1-33% of Day): 25 lbs Waist (Frequent 34-66% of Day): 12.5 lbs Waist (Constant 67-100% of Day): NA Waist PDL: Sedentary Shoulder (Occasional 1-33% of Day): 25 lbs Shoulder (Frequent 34-66% of Day): 12.5 lbs Shoulder (Constant 67-100% of Day): NA Shoulder PDL: Sedentary Overhead (Occasional 1-33% of Day): 25 lbs Overhead (Frequent 34-66% of Day): 12.5 lbs Overhead (Constant 67-100% of Day): NA Overhead PDL: Sedentary Comments: Max lift 25# Bending: Occasional Ability (1-33% of day) Comments: he compensates with body posture & movement with returning to upright pos. Squatting: Occasional Ability (1-33% of day) Comments: compensated with each & every squat by placing both hands on thighs to pu Kneeling: Occasional Ability (1-33% of day) Comments: compensates & uses distal support Reaching out: Frequent Ability (34-66% of day) Comments: completed while sitting Reaching up: Frequent Ability (34-66% of day) Comments: completed while sitting Sitting: Frequent Ability (34-66% of day) Comments: Shifting his weight to off load weight through R hip/buttock area. Walking: Occasional Ability (1-33% of day) Comments: He can do short walks, due to pain. Standing: Occasional Ability (1-33% of day) Comments: He moves frequently as standing still increases pain. Duration Sedentary Sedentary Light Light Light Medium Medium Medium Heavy Very Heavy Heavy Occasional (0-33% of day) Frequent (34-66% of day) Constant (67-100% of day) 10 # Negligible Negligible 15 # 8 # Negligible 20 # 10# Negli. 35 # 18 # 7 # 50 # 25 # 10 # 75 # 100 # >100 # 38 # 50 # >50 # 15 # 20 # >20 # Weight:: 224 kg Hand Dominance: Right BP (Medication Use/Usual Values per pt report): yes, Lizenopril and Zoloft Medical History Including Restrictions: Pt. reported: pt. having had multiple spinal surgeries, neck in 2007, a lumbar fusion, laminectomy, B knee surgeries, wound vacuum for healing. Had a large mass on R side of neck. Headaches and back pain. He has had multiple epidural injections for pain. Pt. reports: history of having shooting pain to head, his was neck swollen, had 4 cat scans, the ENT sent pt. to [place]. Dr. Shepherd stating he had a cyst in on R side of neck. Went to dentist who pulled teeth on Left side of mouth. Then inside of mouth opened and pt. stated he pushed out the liquid substance from the cyst. 2016 shocking & headaches, stated scar tissue caused. 2019 demanded MRI for back pain, stated pt. was in operable. Dr. Jane sent to him to Dr. Bui in September 2020 fusion and laminectomy to L2 to S1, 3 months later S1 joint epidurals for pain in legs. He is scheduled to get multicord stimulator Dr. Cheung this December 24, 2021. He is currently a patient of Dr. Jane for Radiculopathy in lumbar region. Diagnoses: Radiculopathy in lumbar region. Anxiety. Back pain. Back pain with history of spinal surgery. Chronic abdominal pain. Chronic nausea. Gastric reflux. History of pain when walking. History of stress test. Leg cramps. Nausea. Restless legs. Shortness of breath on exertion. Smoker. Wears glasses Symptoms: Pt. reports getting pressure through neck causing headaches, consistent back pain that leads to R hip pain. When his pain become intense he gets nauseous and at times has had emesis. . worked at [employer], but kept having pain symptoms Pain: Pt. reporting he did not take pain meds this morning, current pain prior to FCE start is an 8/10, his lowest pain level is a 5/10, worst pain is 10/10Pt. reports he is allergic to pain meds. He currently takes Lizenopril, Zoloft, Advil, and a sulforic medication for nausea. He stated he is getting an epidural this date at 1600. Pt. stated he had attended the [facility], but his T3-T5 would pop out of place on his way home, so he stopped going. Pt. changes body position frequently, as staying still for long periods of time increases his pain. Pt. did not take pain meds this morning, current pain prior to FCE start is an 8/10, his lowest pain level is a 5/10, worst pain is 10/10. Raghav Pain Questionnaire: 0-78 points severe. Pt. is 58/78. Per this pain scale, this indicates pt. is having greater perceived pain than most. ? Sensory Score = 31 points. ? Affective Score = 11 points. ? Evaluative Score = 5 points. ? Miscellaneous Score = 11 points. ? Pain Rating Index (AZEB) = 58 points. ? Present Pain Intensity (PPI) = 4 points. ? Pain Score Interpretation: The higher the score, the greater the perceived pain. Work History: Worked at [employer]. 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 He is currently receiving disability benefits and is here to keep benefits going. Behavioral: Pt. reported he is to see a psychologist on December 24, 2021 before getting his full body MRI. He has learned to compensate with body positioning to decrease pain. Pt. was pleasant during FCE, he does get tense when speaking of his back pain journey and all the doctors he has seen. He feels frustrated that he has so much pain. He will boogie through tasks, just to finish/complete them. He did laugh and smile with this S/OT. ADLS: Pt and sister both report that he lives in [place] and relies on his sister to drive and grocery shop. He tries to stand when bathing however he will sit if unable to stand during full shower. S/OT recommended pt. get a shower chair. Sister stating she wants to get a walk in shower with shower seat. He does have difficulty with donning socks and has sister assist as needed. S/OT recommended sock aid. Pt. stated he will use a cane for functional mobility at times when he is very painful or has to go a longer distance. He is able to prepare simple microwave meals. The sisters home has 9 steps to the basement where he sleeps during winter months, summer months they move bed to garage so that he does not have to do the 9 steps so much, no railing can use wall for support. Pt. states he is able to lift a ~20# garbage bag but has difficulty with lifting/pouring gallon of milk without compensating by holding his low back. When he was at work he stated he lifted 75# constantly. Pt. stating he is right handed. After walking about 50 yards he has pain that increases down RLE and LLE. Pain always stays in R buttock. He states that his hands go numb from sitting in zero gravity chair, chair feels good on his back. When bending forward, coming back up is more painful. After walking about 50 yards he has pain that increases down RLE and LLE. Pain always stays in R buttock. He states that his hands go numb from sitting in zero gravity chair, chair feels good on his back. When bending forward, coming back up is more painful. He does not work out regularly, completes daily tasks, takes care of pates, does not drive, does not walk around grocery store, does not complete yard work, can walk 5-10 min before sitting, needs to sit a lot throughout the day, can sit for 1 hour at a time, can stand for 5-10 min throughout the day, most comfortable position is left side, sometimes sleeps in a bed. According to Functional Activities Questionnaire he is able to bathe, feed, dress and otherwise care for myself. He also stated he is able to cook and do housework such as sweeping, vacuuming and cleaning. Physical Examination: At start of FCE BP 147/95, HR 88, O2 99% at end of FCE BP 154/101, HR 82, O2 98%. He was observed throughout FCE being short of breath, especially upon exertion. The purpose of this FCE on 12/13/[address] Jane. This exam will assess pt's physical demands abilities. ROM: Completed bilateral upper extremity (BUE) active range of motion (AROM) simultaneously while seated, BUE's AROM are within functional limits, no distinct deficits observed. Bilateral lower extremity (BLE) AROM while standing using wall for support as needed and through observation during FCE, BLE demonstrated approximately 110 degrees of hip flexion, B knee flexion approximately 100 degrees, ankle dorsiflexion 20 degrees. R LE limited by pain unable to stand 1 leg without support. Strength: Strength was tested using the mini FET: Shoulder flexion RUE-21.2#, LUE 25. Shoulder adduction RUE-16.6#, LUE 23#, Bicep flexion RUE- 15#, LUE 22.3#, Tricep RUE-19.9#, LUE 27#. Hip flexion RLE-17#, LLE-25.6#, Quadriceps RLE- 19#, LLE- 24.7#, Hamstrings RLE-19.7#, LLE-16.7#. Right Water Treatment Technician Strength Average: 113.33 Right Water Treatment Technician Strength Percentile: 40.1% Left Water Treatment Technician Strength Average: 101.66 Left Water Treatment Technician Strength Percentile: 39.3% Right Lateral Pinch Average: 24.33 Right Lateral Pinch Percentile: 90% Left Lateral Pinch Average: 23.00 Left Lateral Pinch Percentile: 90% Right Tripod Pinch Average: 23.33 Right Tripod Pinch Percentile: 90% Left Tripod Pinch Average: 19.33 Left Tripod Pinch Percentile: 75% Comments: pt. used max force for each food consultant/pinch strength trial. Sensation: Sensation was tested by using the Stanberry Ezekiel monofilament test to bilateral hands: R index finger had normal sensation at 2.83. All other fingers at 3.61, decreased sensation, of finger tip pads. Fine Motor: Fine motor was assessed by using the 9-hole peg test: R hand-23.04 seconds L hand-20.67 seconds. Balance: Balance assessed through functional reach test (FRT), timed up and go (TUG) test, and observations throughout FCE: Functional reach test while standing, 1st trial-6 inches, 2nd trial- 5 inches, 3rd trial- 5 inches. Average is 5.33 inches. 6?/15cm or less Risk of falling is 4x greater than normal. Timed up and go- 1st trial- 21.84 seconds, 2nd trial- 25.36 seconds, 3rd trial- 28.74 seconds. Average 25.31 seconds. <30 seconds = problems, cannot go outside alone or requires gait aid. Single leg stance- 1 trial- 3 seconds with eyes open. Average for male age 50-59 is 48 seconds. Pt. was unable to stand on 1 leg without support longer than 3 seconds. He has demonstrated good righting reactions. Bendin/3x only, he compensates with body posture and movement with returning to upright position. His R LE starts to shake during bending movement. He was not able to touch the floor with hand. unable to move to 10/10x and 10/10x fast Squattin/3x, 10/10x, 10/10x rapidly completed. Pt. compensated with each and every squat by placing both hands on thighs to push up. R LE starts to shake during 10x and 10x rapidly. R knee popping during 10/10x but continued to complete 10/10x rapidly. pt can squat on an occasional ability with support Kneelinx only using counter for support, placing R knee down x2 and L knee down x1. Pt. stating it is easier with R knee going down to ground. Unable to move to 10x and 10x fast. pt can kneel occasional with external support Reaching out/up: completed while seated. No issues. completed 3/3x, 10/10x, 10/10x rapidly, he basically did all of them fast to the point of getting out of breath. pt completed while sitting- pt can reach out/up on a frequent ability while sitting Walking: Attempted 6 minute walk test (6MWT)- however pt. was only able to complete walk up to 4 min 50 seconds, 275 ft using wall for support 70% of time, 1 stop to stretch legs, and 3-5 other quick rest breaks. Pt. has antalgic gait and walks on ball of R foot and curls toes under to decrease pain in R hip. Through observation of pt. walking, and stair climbing this S/OT recommended that pt. use an assistive device (cane) at all times when walking. Pt. stating he has a can and he rarely uses it. Pt. is at increased risk for falls as he does not have a fluid gait pattern and compensates with feet, knees, hips, & back in attempts to decrease pain. According to Functional Activities Questionnaire pt. can walk at mall, fair, event for 5-10 minutes before he has to sit down. He also stated he is able to walk around his yard. Standing: Pt. demo'd multiple stands during FCE when he had discomfort with sitting, he usually moves around when standing and uses support from chair, table, or wall. Stood for 20 minutes at one point during FCE. pt demo ability to stand on occasional ability with given opportunity to shift body weight. According to Functional Activities Questionnaire he did not answer. Sitting: P.t demo'd ability to sit for 20 minutes when speaking of medical history. He has a difficult time sitting still. He shifts his weight to off load weight through R hip/buttock area. Recommending frequent ability for sitting. According to Functional Activities Questionnaire he answered that he does not usually sit for an hour a day. He did not state a comfortable position. Climbing Stairs: Pt. completed 1 flight of steps (10). Going up the steps pt. did not use hand rails and has a flexed posture (flexed at knees, hips and low back) and goes quickly. Coming down the steps pt. used hand rails and completed step to step 50% of time, also had a diagonal body position when coming down the steps. stair climbing fair ability. According to Functional Activities Questionnaire he is able to walk up and down steps at home (9 without rail) Floor Lift: Only 1 trial weight 1 x 25#. completed with Fair body mechanics. Pt. then walks around before initiating next lift. Knee Lift: Only 1 trial weight 1 x25#. Pt. completes quickly before muscle loss/fatigue due to back pain. Pt. then walks around before initiating next lift. Waist Lift: Only 1 trial weight 1 x25#. Pt. completes quickly before muscle loss/fatigue due to back pain. Pt. then walks around before initiating next lift. Shoulder Lift: Only 1 trial weight 1 x25#. Pt. completes quickly before muscle loss/fatigue due to back pain. He holds his breath during task. Pt. then walks around before initiating next lift. Overhead Lift: Only 1 trial weight 1 x25#. Pt. completes quickly before muscle loss/fatigue due to back pain. He holds his breath during task. Pt. then walks around before initiating next lift. Carrying: Did not complete as pt. had increased pain from lifting. Comments: Pt. completed all lifts quickly to prevent dropping box secondary to back pain. He holds his breath during more difficult transfers. Box transfers became progressively difficult. Pain 8/10 at end of transfer section. S/OT asked multiple times if pt. wanted to stop lifting test secondary to back pain, pt. ok'd continuation stating he plans on getting epidural later this date. This session was directly supervised and doc. review and approved by Alysa Riggins OTR/Wing,CHT
--- NOTE | 2021-12-17 10:17 | HP.OTFCE.D ---
FCE D/C Summary - Discharge EUGENIO WEBER was seen for a one time visit for an FCE on 12/13/21 and is discharged.
== END 2021-12-13 19:00 | disposition home or self-care (01) ==
LOC: OT 07:25
PROVIDERS: PCP Internal Medicine; Referring Provider Anesthesiology Pain Medicine; Visit Provider Anesthesiology Pain Medicine
DX: M54.16 Radiculopathy, lumbar region (principal)
CPT/HCPCS: 97167; 97750

== ENCOUNTER → 2022-06-19 | Outpatient (CLI) | payer MEDICARE, SELFPAY ==
--- NOTE | 2022-06-19 08:16 | CDU_ITS ---
Reason For Study: DIZZINESS Rt. Velocities/BP Lt. Velocities/BP Prox CCA 91.9/14.9 cm/sec. Prox CCA 117.4/32.7 cm/sec. Mid CCA 88.6/21.5 cm/sec. Mid CCA 79.3/25.3 cm/sec. Dist CCA 82.0/30.3 cm/sec. Dist CCA 87.9/31.4 cm/sec. Prox ICA 68.0/27.4 cm/sec. Prox ICA 97.7/38.8 cm/sec. Mid ICA 92.2/36.2 cm/sec. Mid ICA 114.9/33.9 cm/sec. Dist ICA 100.3/41.8 cm/sec. Dist ICA 74.4/17.9 cm/sec. Rt. ICA/CCA = 100.3/88.6=1.13. Lt. ICA/CCA = 114.9/79.3=1.45. Prox ECA 105.1/16.0 cm/sec. Prox ECA 84.2/20.4 cm/sec. Rt. Vert. 58.5/16.9 cm/sec. Lt. Vert. 49.6/21.7 cm/sec. Right Extracranial There is intimal thickening but no significant atherosclerotic plaque noted in the right common carotid artery. There is intimal thickening but no significant atherosclerotic plaque noted in the right internal carotid artery. There is no significant atherosclerotic plaque noted in the right external carotid artery. Antegrade flow is noted in the right vertebral artery. Left Extracranial There is homogeneous, smooth atherosclerotic plaque noted in the left common carotid artery. There is no significant atherosclerotic plaque noted in the left internal carotid artery. There is no significant atherosclerotic plaque noted in the left external carotid artery. Antegrade flow is noted in the left vertebral artery. There is homogeneous, irregular atherosclerotic plaque noted in the left bulb. Attempted MULTIPLE neck positions for imaging. VL/Carotid Duplex Ultrasound Interpretation Summary Intimal thickening of the right carotid bulb and proximal internal carotid justus ry with less than 50% stenosis Less than 50% stenosis right external carotid artery Suspected soft plaque within the left carotid bulb with less than 50% stenosis Less than 50% stenosis left internal carotid artery Less than 50% stenosis left external carotid artery Patent and antegrade vertebral arteries bilaterally Ordering Physician: Nayeli Puente Referring Physician: Nayeli Puente Performed By: Bernadine Glasgow, JOSEPHINE, RVT
== END | disposition home or self-care (01) ==
LOC: CVS 08:10
PROVIDERS: PCP Internal Medicine; Referring Provider Internal Medicine; Visit Provider Internal Medicine
DX: R42 Dizziness and giddiness (principal); I77.9 Disorder of arteries and arterioles, unspecified; I10 Essential (primary) hypertension
CPT/HCPCS: 93880

== ENCOUNTER → 2022-06-26 | Outpatient (CLI) | payer MEDICARE, SELFPAY ==
--- NOTE | 2022-06-26 06:30 | MRI_ITS ---
STUDY: MRI BRAIN WITH AND WITHOUT CONTRAST REASON FOR EXAM: Male, 52 years old. Dizziness, vertigo, nausea TECHNIQUE: Standardized multiplanar fat and water weighted pulse sequences were obtained. 20ML IV CLARISCAN was administered for the contrast portion of the examination. COMPARISON: Head CT dated FEBRUARY 27, 2019 FINDINGS: Normal size of the ventricles and extra-axial spaces for the patient''s age. There are a limited number of small white matter hyperintensities, distributed throughout the deep white matter tracts of the cerebral hemispheres, consistent with mild chronic white matter ischemic changes. There is no evidence for recent intracranial ischemia or other cause of cytotoxic edema on diffusion weighted imaging (DWI). Normal T2* images of the brain without demonstrated susceptibility artifact. There is no demonstrated hemosiderin stain. There are no demyelinating plagues of the supratentorial brain, brainstem or cerebellum. There are no findings suspicious for multiple sclerosis (MS). Normal bilateral basal ganglia. Normal thalami. There is no extra-axial fluid accumulation. Normal flow voids within the major intracranial circulation suggesting patency by spin echo criteria. Normal venous enhancement. There is no enhancing intra-axial or extra-axial abnormality. No focal brain parenchymal lesions are present or abnormal enhancement. Normal sella turcica, pituitary gland, infundibular stalk, optic chiasm and hypothalamus. Normal tectal plate and pineal gland. Normal midbrain, miroslava and medulla. Normal cerebellum. Normal basal cisterns. Normal bilateral temporal bones. Normal bilateral internal auditory canals. No demonstrated orbital abnormality, within the constraints of a routine brain study. Normal visualized paranasal sinuses. Normal calvarium and skull base. Normal visualized soft tissue structures. Normal visualized upper cervical spine. MRI/Brain W/WO Contrast IMPRESSION: 1. Minimal chronic ischemic changes of the brain, as described above. 2. No evidence of acute infarction or intracranial hemorrhage. Electronically Signed: Gallo Bradshaw MD at 15:57 EDT Reading Location ID and State: [facility] / [place] , Service support ,
[2022-06-26 07:15] LABS: CREATININE FINGERSTICK 1.2 mg/dL (0.70-1.30); EGFR FINGERSTICK > 60.0000 mL/min (>60)
== END | disposition home or self-care (01) ==
PROVIDERS: PCP Internal Medicine; Referring Provider Internal Medicine; Visit Provider Internal Medicine
DX: R42 Dizziness and giddiness (principal); I77.9 Disorder of arteries and arterioles, unspecified
CPT/HCPCS: 70553; A9575

== ENCOUNTER → 2022-08-29 | Outpatient (CLI) | payer MEDICARE, SELFPAY ==
--- NOTE | 2022-08-29 18:13 | MRI_ITS ---
EXAM: MR RIGHT LOWER EXTREMITY WITHOUT INTRAVENOUS CONTRAST, HIP CLINICAL INDICATION: pain TECHNIQUE: Multiplanar and multisequence MR images of the right hip without intravenous contrast. This report was created using [employer] report generation technology. COMPARISON: None. FINDINGS: ARTIFACTS: Extensive susceptibility artifact involving the lumbosacral spine. TENDONS: FLEXORS: Unremarkable. Intact. EXTENSORS/HAMSTRING: Unremarkable. Intact. ABDUCTORS: Unremarkable. Intact. ADDUCTORS: Unremarkable. Intact. ROTATORS: Unremarkable. Intact. MUSCLES: Muscles are normal. FLUID: Mild bilateral trochanteric bursitis. No joint effusion. LABRUM: Unremarkable. No evidence of a tear on this non-arthrogram exam. CARTILAGE: Unremarkable. Articular cartilage intact. BONES/JOINTS: Unremarkable. No femoral neck fracture. No avascular necrosis of the femoral head. No sacral insufficiency fracture. No suspicious bone marrow signal alteration. OTHER SOFT TISSUES: No significant tendon tearing. INTRAPERITONEAL SPACE: No free fluid in the pelvis. MRI/Lower Ext Joint Only (Routine) IMPRESSION: Mild bilateral trochanteric bursitis. Electronically Signed: Byron Sepulveda MD at 0:15 EST ,
== END | disposition home or self-care (01) ==
LOC: MRI 17:45
PROVIDERS: PCP Internal Medicine; Visit Provider Orthopaedic Surgery
DX: M87.059 Idiopathic aseptic necrosis of unspecified femur (principal)
CPT/HCPCS: 73721

== ENCOUNTER 2022-10-07 12:39 | Emergency (ER) | payer MEDICARE, SELFPAY ==
[2022-10-07 12:39] VITALS: BP 144/109; PULSE 90; RESP 20; TEMP 36.3; O2SAT 100; BMI 26.7
--- NOTE | 2022-10-07 13:43 | ED.VIS.BACK ---
HPI History of Present Illness Chief Complaint: Back Onset/Context/Timing Onset: Yesterday Context: Gradual Onset Chronic pain exacerbated by: Unknown Timing: Continuous Quality: Aching Location: Lumbar, Right Leg and Left Leg (Buttock only) Current Severity: Severe Maximum Severity: Severe Worsened by: improves with Movement and Ambulation Relieved by: Remaining Still Associated Symptoms Associated Symptoms: Numbness (Mostly right lower extremity, gone now but was present earlier); Negative for Unable to Ambulate, Unable to Transfer, Urinary Retention, Urinary Incontinence, Constipation or Fecal Incontinence Narrative Narrative: Patient has a history of chronic issues in his low back, he had a fusion L2-S1 1 or 2 years ago and has been having chronic pain ever since, including intermittent sciatica down the right lower extremity. Now, it is going into his left buttock for the last several days or week. Today the pain was just so much worse that he seeks treatment. He states his left leg felt like it was giving out on occasion. He denies any saddle anesthesia/numbness although he did have it in his right leg earlier. It is gone back to normal now. He is trying to get approved for spinal stimulator that his pain management doctor recommended. Is been also having muscle spasms, he had been on Valium before which seemed to help more than the analgesics, but he stopped those so that he did not have any addiction problems and has not had any benzodiazepines in the last 1.5 years. He denies any bowel or bladder dysfunction recently. He had an MRI of his right hip 2 weeks ago, because of pain there and states it just showed some mild inflammation and nothing acute or surgical. He is due for an MRI of his low back according to his pain management doctor as well. Prior similar symptoms: Yes and With Prior Back Pain [facility] Medical History Anxiety Back pain Back pain with history of spinal surgery Chronic abdominal pain Chronic nausea Gastric reflux History of pain when walking History of stress test Leg cramps Marijuana use Nausea Restless legs Shortness of breath on exertion Smoker Vitamin D deficiency Wears glasses Home Medications multivitamin with iron (Daily Multiple Vitamins with Iron tablet) 1 tab PO DAILY SUPPLEMENT 08/14/20 [History Last Taken Unknown] sertraline 50 mg tablet (Zoloft) 50 mg PO DAILY #90 tabs 04/08/22 [Rx Last Taken Unknown] lisinopril 20 mg tablet 20 mg PO DAILY #90 tabs 04/15/22 [Rx Last Taken Unknown] Marijuana 1 bag inhalation DAILY 07/22/22 [History Last Taken Unknown] Allergy/AdvReac Type Severity Reaction Status Date / Time acetaminophen [From Percocet] Allergy Nausea Verified 10/07/22 12:42 oxycodone [From Percocet] Allergy Hives Verified 10/07/22 12:42 propoxyphene Allergy Hives Verified 10/07/22 12:42 [From Darvocet-N] Opioids - Morphine Analogues AdvReac Intermediate RASH,SHAKY, Verified 10/07/22 12:42 ITCHY, DIFFICULTY BREATHING Family History Other CVA (cerebral vascular accident) Myocardial infarction Surgical History History of arthroscopic knee surgery History of fusion of cervical spine History of fusion of lumbar spine Social History Smoking Status: Heavy Smoker (>10/day) Tobacco: How many years used: 25 alcohol intake: never substance use type: other details: medical marijuana what type of physical activity do you participate in: walking, bicycling and other details: Stretching ROS ROS ED Constitutional Constitutional ED: Denies chills or fever(s) Gastrointestinal Gastrointestinal: Denies abdominal pain, constipation, fecal incontinence, nausea or vomiting Genitourinary Genitourinary ED: Reports other Details: no urinary retention ; Denies abdominal discomfort or urinary incontinence Musculoskeletal Musculoskeletal: Reports as per HPI, back pain and muscle spasms; Denies neck pain Integumentary Denies rash or wounds Neurologic Neurologic: Reports paresthesias RLE (Now resolved); Denies headache(s) or weakness EXAM Physical Exam Const Vital Signs: 10/07/22 12:39 Temperature 97.4 F L Temperature Source Temporal Pulse Rate 90 Respiratory Rate 20 H Blood Pressure 144/109 H Blood Pressure Mean 120 Pulse Ox 100 Oxygen Delivery Method Room Air Positive well nourished and well developed General Appearance ED: well developed and NAD HEENT Negative for trauma or tenderness Eyes PERRL and EOMs intact bilaterally Neck full ROM and supple GI normal to inspection, nondistended, normoactive bowel sounds, soft to palpation and non-tender Back/Spine normal to inspection Back/Spine Narrative: Straight leg raises significantly limited due to 15 degrees of ipsilateral raising causing severe muscle spasms and pain in the low back. Contralateral straight leg raise involving the left lower extremity also causes severe spasms and pain in the right low back similar degree. No radicular symptoms recreated. Lumbar Spine / Lower Back: ROM limited and paraspinal muscle tenderness right (At SI joint mainly); Negative for lumbar spinal tenderness Extremity normal to inspection, full ROM and no pedal edema Neuro oriented x3 and no sensory deficits noted Neuro Narrative: Neurovascularly intact distally both lower extremities with strong dorsalis pedis pulses and normal reflexes, no clonus Sensorium / Orientation: alert Motor Exam: strength 5/5 throughout and clonus absent Deep Tendon Reflexes: Rt Patellar (L4): 2+, Lt Patellar (L4): 2+, Rt Ankle (S1): 2+ and Lt Ankle (S1): 2+ Deep Tendon Reflexes Back: Rt Patellar (L4): 2+, Lt Patellar (L4): 2+, Rt Ankle (S1): 2+ and Lt Ankle (S1): 2+ Plantar Reflex: Downgoing: bilateral Psych mental status grossly normal and thought process normal Skin no rashes or lesions noted and no wounds MDM MDM MDM Narrative Medical decision making narrative: Clinically I do not think this patient needs an emergent MRI, he does not have any symptoms or findings of cauda equina or conus medullaris syndromes. I discussed that with him he is reassured, and I offered him analgesics since that is what we can help him with here, and initially he declined the images wanted to make sure he was okay, but then thought he was so miserable that he changed his mind and would except an injection of morphine which she has had without reaction multiple times in the past, and I offered a dose of Ativan to go with her to help with muscle spasms. Discharge Plan Triage Chief Complaint: Back ED Provider: Jean Killian Dx/Rx/DC Orders Clinical Impression: Acute exacerbation of chronic low back pain, Sacroiliitis, not elsewhere classified Instructions: ED Back Pain (Acute or Chronic), ED Sacroiliitis Prescriptions: No Action multivitamin with iron [Daily Multiple Vitamins/Iron] Tablet 1 tab PO DAILY Marijuana 1 bag inhalation DAILY sertraline [Zoloft] 50 mg tablet 50 mg PO DAILY Qty: 90 3RF lisinopril 20 mg tablet 20 mg PO DAILY Qty: 90 3RF Primary Care Provider: Nayeli Puente Referrals: Chad Jane MD [Med Staff - Active Staff] - As soon as possible Nayeli Puente MD [Primary Care Provider] - Disposition Disposition: Home, Self Care
[2022-10-07] MEDS: Morphine 4 MG/ML Syringe IM (13:53)
[2022-10-07] MEDS: LORazepam 2 MG/ML Syringe 1 MG IM (13:54)
[2022-10-07 14:18] VITALS: BP 164/80; PULSE 90; RESP 16; O2SAT 98
== END 2022-10-07 14:23 | disposition home or self-care (01) ==
PROVIDERS: Emergency Provider Emergency Medicine; PCP Internal Medicine; Visit Provider Emergency Medicine
DX: M54.50 Low back pain, unspecified (principal); M46.1 Sacroiliitis, not elsewhere classified; G89.29 Other chronic pain; F17.200 Nicotine dependence, unspecified, uncomplicated; F41.9 Anxiety disorder, unspecified; F12.90 Cannabis use, unspecified, uncomplicated; Z79.899 Other long term (current) drug therapy
CPT/HCPCS: 96372; 99282

== ENCOUNTER → 2022-10-16 | Outpatient (CLI) | payer MEDICARE, SELFPAY ==
--- NOTE | 2022-10-16 12:40 | MRI_ITS ---
STUDY: MRI LUMBAR SPINE WITHOUT CONTRAST REASON FOR EXAM: Male, 52 years old. increased pain TECHNIQUE: MRI examination lumbar spine obtained with standard protocol including multiplanar multiecho brain post contrast imaging. Contrast: 20 mL Clariscan COMPARISON: 06/28/2021 FINDINGS: Vertebral bodies and alignment. 1. Vertebral body height is unchanged, there are postoperative changes of interbody fusion and anterior fixation at L4-5 and L5-S1. No evidence of marrow edema or destructive marrow replacement process. 2. Additional findings of interspinous fixation devices at L4-5 and L5-S1. 3. Paraspinous soft tissue planes have normal appearance. Normal appearance of the muscular fascial planes of the erector spinae. 4. Normal appearance of the sacrum and sacroiliac joints. 5. No areas of abnormal contrast enhancement. Intervertebral disks levels. T12-L1: Normal endplates. Normal disc height, hydration and morphology. Normal bilateral facet joints. Normal central canal and bilateral lateral recesses. Normal bilateral intervertebral neural foramina. L1-2: Mild loss of disc height, disc desiccation without disc herniation canal or foraminal narrowing. Findings are stable. L2-3: Normal endplates. Normal disc height, hydration and morphology. Normal bilateral facet joints. Normal central canal and bilateral lateral recesses. Normal bilateral intervertebral neural foramina. L3-4: No disc herniation or canal stenosis. Mild facet hypertrophic changes. No foraminal narrowing. L4-5: Postoperative changes with streak artifact. No disc herniation noted. There is mild osteophyte formation however contributing to narrowing of the RIGHT lateral recess and contact with the emerging RIGHT L5 nerve root without interval change. L5-S1: Postop changes, there is a broad-based posterior disc bulge and osteophyte complex without evidence of tori disc herniation canal or foraminal narrowing. Spinal cord: Normal appearance of the spinal cord and conus. Conus is located at L1. Cauda equina has normal appearance. No evidence of cord compression or edema. No intramedullary signal abnormality noted. No areas of abnormal contrast enhancement. MRI/Spine Lumbar W/WO Contrast IMPRESSION: 1. Redemonstration of postoperative changes including interbody fusion and interspinous fusion at L4-5 and L5-S1. 2. Broad-based posterior disc bulge and osteophyte complex at L1 5 S1 without significant change. No canal or foraminal narrowing at this level. 3. Chronic osteophyte formation at L4-5 with narrowing of the RIGHT lateral recess, and contact with the emerging RIGHT L5 nerve root without significant interval change. No canal stenosis. 4. Disc space narrowing without disc herniation canal or foraminal narrowing at L1-2. 5. Normal appearance the visualized spinal cord and conus. No evidence of intradural or intramedullary signal or contrast abnormality. No epidural fluid collection, abnormal enhancement or abscess. Electronically Signed: Josh Woodard MD at 0:10 EST ,
[2022-10-16 13:21] LABS: EGFR FINGERSTICK > 60.0000 mL/min (>60)
== END | disposition home or self-care (01) ==
PROVIDERS: PCP Internal Medicine; Referring Provider Orthopaedic Surgery; Visit Provider Orthopaedic Surgery
DX: M54.50 Low back pain, unspecified (principal); Z98.1 Arthrodesis status
CPT/HCPCS: 72158; A9575

== ENCOUNTER 2023-04-18 11:24 | Day surgery (SDC) | payer MEDICARE, SELFPAY ==
[2023-04-18 11:49] VITALS: BP 123/73; PULSE 61; RESP 16; TEMP 36.7; O2SAT 99; BMI 26.8
[2023-04-18] MEDS: Lactated Ringers 1,000 ML 15 ML IV (11:53)
[2023-04-18] MEDS: Cefazolin 2 GM in 0.9% Normal Saline 100 ML IV (13:10)
--- NOTE | 2023-04-18 13:31 | RAD_ITS ---
EXAM: FL FLUOROSCOPY < 1 HOUR CLINICAL INDICATION: INSERTION, SPINAL CORD STIMULATOR TECHNIQUE: Fluoroscopic images performed in multiple projections. A total of 2 fluoroscopically guided spot images were obtained. Fluoroscopic guidance was provided by a physician. A total of 168.4 seconds of fluoroscopy time was utilized. 165.9 mGy. COMPARISON: No relevant prior studies available. FINDINGS: BONES/JOINTS: Unremarkable. No acute fracture. No dislocation. SOFT TISSUES: Unremarkable. Devices: Stimulator wires are seen centrally in the posterior aspect of the spinal canal. RAD/Lumbar Spine 2 or 3 Views IMPRESSION: Normal fluoroscopy exam. Fluoroscopic guidance for insertion of intraspinal stimulator wires. Electronically Signed: Guevara Ward MD at 4:05 EDT ,
[2023-04-18] MEDS: Lidocaine 1%/Epi 1:100 (30ml) 30 ML VIAL (13:53)
[2023-04-18] MEDS: Bupivacaine 0.25% 30 ML Vial (13:54)
[2023-04-18 14:47] VITALS: BP 119/75; BP 123/73; PULSE 91; RESP 18; TEMP 36.6; O2SAT 98
[2023-04-18 15:03] VITALS: BP 116/77; BP 123/73; PULSE 77; RESP 18; O2SAT 98
[2023-04-18 15:15] VITALS: BP 123/73; BP 99/68; PULSE 73; RESP 18; TEMP 36.6; O2SAT 96
[2023-04-18 15:44] VITALS: BP 123/73
== END 2023-04-18 15:51 | disposition home or self-care (01) ==
PROVIDERS: PCP Internal Medicine; Referring Provider Anesthesiology Pain Medicine; Visit Provider Anesthesiology Pain Medicine
PROC: (CPT 63685; principal; 2023-04-18 12:50)
DX: Z45.42 Encounter for adjustment and management of neurostimulator (principal); M96.1 Postlaminectomy syndrome, not elsewhere classified; M54.16 Radiculopathy, lumbar region; F17.200 Nicotine dependence, unspecified, uncomplicated; F32.A Depression, unspecified; Z79.899 Other long term (current) drug therapy; K21.9 Gastro-esophageal reflux disease without esophagitis; G89.29 Other chronic pain; F41.9 Anxiety disorder, unspecified; I10 Essential (primary) hypertension
CPT/HCPCS: 63685; 63650 ×2; 00300; 95972; 72100; 76000; C1778; C1820; J7120; J2405

== ENCOUNTER 2023-04-20 10:04 | Emergency (ER) | payer MEDICARE, SELFPAY ==
[2023-04-20 10:05] VITALS: BP 140/87; PULSE 52; RESP 18; TEMP 36.1; O2SAT 100; BMI 26.7
--- NOTE | 2023-04-20 10:19 | EDS_ITS ---
HPI <ONEIDA De La Cruz - Last Filed: 04/20/23 14:22> History of Present Illness Chief Complaint: Headache Narrative Narrative: 53-year-old male had a spinal stimulator placed by Dr. Jane on 04/18. The next day he developed a migraine and chills and nausea. The headache is worse with standing and better with lying down. He states symptoms are persistent today and he started vomiting. He denies fever or chills but has been sweaty. No cough or upper respiratory symptoms. PFSH <ONEIDA De La Cruz - Last Filed: 04/20/23 14:22> [facility] Medical History (Updated 04/20/23 @ 11:09 by ONEIDA De La Cruz) Anxiety Back pain Back pain with history of spinal surgery Chronic nausea History of pain when walking History of stress test Hypertension Leg cramps Limited mobility Marijuana use Migraine headache Nausea Restless legs Shortness of breath on exertion Smoker Vitamin D deficiency Wears glasses Home Medications multivitamin with iron (Daily Multiple Vitamins with Iron tablet) 1 tab PO DAILY SUPPLEMENT 08/14/20 [History Last Taken Unknown] lisinopril 20 mg tablet 20 mg PO DAILY #90 tabs 04/15/22 [Rx Last Taken 04/18/23 08:00] Marijuana 1 bag inhalation DAILY 07/22/22 [History Last Taken Unknown] sertraline 50 mg tablet (Zoloft) 50 mg PO DAILY #90 tabs 04/10/23 [Rx Last Taken Unknown] tramadol 50 mg tablet 50 mg PO .q6hr PRN pain 04/17/23 [History Last Taken Unknown] mycizhcyda-kfbbjhzpgbudh-zndvxpcc 50 mg-300 mg-40 mg capsule (Fioricet) 1 cap PO Q8H PRN pain 3 days #9 caps 04/20/23 [Rx Last Taken Unknown] ondansetron 4 mg disintegrating tablet 4 mg PO Q6H PRN nausea and vomiting #12 tabs 04/20/23 [Rx Last Taken Unknown] Allergy/AdvReac Type Severity Reaction Status Date / Time oxycodone [From Percocet] Allergy Hives Verified 04/18/23 11:49 propoxyphene Allergy Hives Verified 04/18/23 11:49 [From Darvocet-N] Opioids - Morphine Analogues AdvReac Intermediate RASH,SHAKY, Verified 04/18/23 11:49 ITCHY, DIFFICULTY BREATHING Family History Other CVA (cerebral vascular accident) Myocardial infarction Surgical History (Updated 04/17/23 @ 17:33 by Kavitha Coley) History of arthroscopic knee surgery History of colonoscopy History of esophagogastroduodenoscopy (EGD) History of fusion of cervical spine History of fusion of lumbar spine Social History Smoking Status: Heavy Smoker (>10/day) Tobacco: How many years used: 25 alcohol intake: never substance use type: other details: medical marijuana what type of physical activity do you participate in: walking, bicycling and other details: Stretching ROS <ONEIDA De La Cruz - Last Filed: 04/20/23 14:22> ROS ED ROS Narrative Constitutional: Negative for fever, chills, malaise. ENT: Negative for sore throat, ear pain, rhinorrhea. CVS: Negative for chest pain. Respiratory: Negative for shortness of breath, cough. GI: Positive for nausea, vomiting. Neuro: Positive for headache, negative for motor/sensory dysfunction. EXAM <ONEIDA De La Cruz - Last Filed: 04/20/23 14:22> Physical Exam Narrative Exam Narrative: CONST: Patient lying down in no acute distress. EYES: Normal inspection. PERRLA, EOMI. ENT: Normal inspection, moist mucous membranes. NECK: Normal inspection. No meningismus. RESP: No respiratory distress, CTAB. CVS: Regular rate and rhythm, no murmur, no gallop. Back: Normal inspection, small bandage to lower thoracic area with small spots of dried blood. No surrounding erythema or drainage. SKIN: Color normal, no rash, warm, dry, intact. EXTREMITIES: Normal appearance, no pedal edema. NEURO: Oriented x4. PSYCH: Normal affect. Const Vital Signs: 04/20/23 10:05 Temperature 96.9 F L Temperature Source Temporal Pulse Rate 52 L Respiratory Rate 18 Blood Pressure 140/87 H Blood Pressure Mean 104 Pulse Ox 100 Oxygen Delivery Method Room Air <Dr. John Parr MD - Last Filed: 04/20/23 10:56> Physical Exam Const Vital Signs: 04/20/23 10:05 Temperature 96.9 F L Temperature Source Temporal Pulse Rate 52 L Respiratory Rate 18 Blood Pressure 140/87 H Blood Pressure Mean 104 Pulse Ox 100 Oxygen Delivery Method Room Air [facility] <ONEIDA De La Cruz - Last Filed: 04/20/23 14:22> [facility] Narrative Medical decision making narrative: History gathered from: Patient and spouse Patient is having positional headaches and nausea and vomiting that started after spinal stimulator placement. He appears well and nontoxic. He is afebrile with unremarkable vital signs. He has a normal neurological exam. Back incision appears normal with no signs of infection so there is no indication for imaging. He feels better after Toradol and so I prescribed this antiemetic for home. I spoke with Dr. Jane who recommended bed rest, caffeine, and 3 days of Fioricet. He states that he is not feeling better on Friday he should call the office and they can discuss other interventions including a blood patch. Patient was discharged in stable condition. Differential: Spinal headache, migraine, no evidence of back infection I have personally performed a face to face assessment of the patient and have reviewed the JOSE MANUEL Note. I performed a substantive portion of the visit including all aspects of the following. My vaca findings include: History is 53-year-old male status postplacement of a lumbar spine stimulator on Friday by pain management Dr. Jane. Yesterday on Friday he started having a headache it was positional worse upright better supine. Denies any fever. No head trauma. No blood thinners. Patient is under chronic pain management for chronic neck and back pain and prior cervical and lumbar fusions. Exam is [50-year-old male lying supine on his right side in bed. present in room. Vital signs are stable and if Riehle. He does not look septic or toxic.. He is in no distress. H EENT exam is unremarkable. Pupils round reactive light. Extra motions are intact. Neck nontender no lymphadenopathy. Prior posterior neck surgery. Well-healed incision pain.. Lungs clear. Heart regular rhythm. Abdomen soft nontender. Patient moves all 4 extremities. Neurovascularly intact. On his back he has a incision is dry and clean from recent spinal stimulator placement. There is no signs of infection. No redness or warmth. No discharge or active bleeding. Neurologic exam is normal. NIH is 0.] Medical Decision Making [patient be treated with IM Toradol. We have pain management on page.] Other additions or changes: [None] <Dr. John Parr MD - Last Filed: 04/20/23 10:56> [facility] MDM Narrative Medical decision making narrative: History gathered from: Patient and spouse Patient is having positional headaches and nausea and vomiting that started after spinal stimulator placement. He appears well and nontoxic. He is afebrile with unremarkable vital signs. He has a normal neurological exam. Back incision appears normal with no signs of infection. I have personally performed a face to face assessment of the patient and have reviewed the JOSE MANUEL Note. I performed a substantive portion of the visit including all aspects of the following. My vaca findings include: History is 53-year-old male status postplacement of a lumbar spine stimulator on Friday by pain management Dr. Jane. Yesterday on Friday he started having a headache it was positional worse upright better supine. Denies any fever. No head trauma. No blood thinners. Patient is under chronic pain management for chronic neck and back pain and prior cervical and lumbar fusions. Exam is [50-year-old male lying supine on his right side in bed. present in room. Vital signs are stable and if Riehle. He does not look septic or toxic.. He is in no distress. H EENT exam is unremarkable. Pupils round humera ctive light. Extra motions are intact. Neck nontender no lymphadenopathy. Prior posterior neck surgery. Well-healed incision pain.. Lungs clear. Heart regular rhythm. Abdomen soft nontender. Patient moves all 4 extremities. Neurovascularly intact. On his back he has a incision is dry and clean from recent spinal stimulator placement. There is no signs of infection. No redness or warmth. No discharge or active bleeding. Neurologic exam is normal. NIH is 0.] Medical Decision Making [patient be treated with IM Toradol. We have pain management on page.] Other additions or changes: [None] Discharge Plan Triage Chief Complaint: Headache ED Midlevel Provider: Jane Zabala ED Provider: John Parr Dx/Rx/DC Orders Clinical Impression: Headache, Nausea and vomiting Instructions: Self-Care for Headaches Prescriptions: New ondansetron 4 mg tablet,disintegrating 4 mg PO Q6H PRN (Reason: nausea and vomiting) Qty: 12 0RF qtvujvozol-parhntybygecm-zrxm [Fioricet] 50-300-40 mg capsule 1 cap PO Q8H PRN (Reason: pain) 3 Days Qty: 9 0RF No Action multivitamin with iron [Daily Multiple Vitamins/Iron] Tablet 1 tab PO DAILY Marijuana 1 bag inhalation DAILY tramadol 50 mg tablet 50 mg PO .q6hr PRN (Reason: pain) Patient Comments: TAKE 1 TABLET BY MOUTH EVERY 4 HOURS NEEDED FOR PAIN FOR 10 DAYS lisinopril 20 mg tablet 20 mg PO DAILY Qty: 90 3RF sertraline [Zoloft] 50 mg tablet 50 mg PO DAILY Qty: 90 3RF Primary Care Provider: Nayeli Puente Referrals: Nayeli Puente MD [Primary Care Provider] - Activity Restrictions/Additional Instructions: I prescribed medication to take as needed for nausea and vomiting. Please call Dr. Jane's office tomorrow. Disposition Disposition: Home, Self Care Discharge Date/Time: 04/20/23 11:33
[2023-04-20] MEDS: Ondansetron ODT 4 MG Tablet PO (10:30)
[2023-04-20] MEDS: Ketorolac 30 MG/ML Syringe IM (10:31)
== END 2023-04-20 11:33 | disposition home or self-care (01) ==
PROVIDERS: Emergency Provider Emergency Medicine; PCP Internal Medicine; Visit Provider Emergency Medicine
DX: R51.9 Headache, unspecified (principal); R11.2 Nausea with vomiting, unspecified; I10 Essential (primary) hypertension; F17.200 Nicotine dependence, unspecified, uncomplicated; G89.29 Other chronic pain; Z79.899 Other long term (current) drug therapy; F41.9 Anxiety disorder, unspecified
CPT/HCPCS: 96372; 99283

== ENCOUNTER → 2024-02-02 | Outpatient (CLI) | payer MEDICARE, SELFPAY ==
--- NOTE | 2024-02-02 07:21 | MRI_ITS ---
INDICATION: pain EXAMINATION: MRI - MR Spine Thoracic W/O Contrast TECHNIQUE: Multiplanar and multisequence MR images of the thoracic spine without contrast. IV Contrast Dosage and Agent: None. COMPARISON: Thoracic spine radiograph January 23, 2024. FINDINGS: VERTEBRAE: Anterior lower cervical and lumbar internal fixation. No fracture or compression deformity. Normal bone marrow signal. No aggressive osseous lesion. VERTEBRAL ALIGNMENT: Preserved thoracic kyphosis. No listhesis. There is preservation of the normal thoracic kyphosis. No scoliosis. DISCS: Normal disc height and morphology. Normal spinal canal and neuroforamina. CORD: Neurostimulator noted along the posterior lower thoracic spinal canal. Unremarkable in signal and morphology. SOFT TISSUES: Unremarkable. MRI/Spine Thoracic (Routine) IMPRESSION: No specific finding to explain patient''s pain. Intrathecal neurostimulator noted Electronically Signed: Clive Keene MD at 5:22 EDT ,
== END | disposition home or self-care (01) ==
PROVIDERS: PCP Internal Medicine; Referring Provider Orthopaedic Surgery; Visit Provider Orthopaedic Surgery
DX: M51.24 Other intervertebral disc displacement, thoracic region (principal)
CPT/HCPCS: 72146

== ENCOUNTER 2024-02-19 08:16 | Emergency (ER) | payer MEDICARE, SELFPAY ==
[2024-02-19 08:16] VITALS: BP 159/105; BP 169/101; PULSE 102; PULSE 98; RESP 14; TEMP 36.2; O2SAT 100; O2SAT 99
--- NOTE | 2024-02-19 08:55 | ART_ITS ---
Reason For Study: Claudication Procedure A bilateral lower extremity continuous wave Doppler with analog waveform analysis and ankle brachial indexes. Left Segmental Pressures Left posterior tibial artery = 108mmHg. Left dorsalis pedis artery = 108mmHg. Left digit = 120 mmHg. The left posterior tibial artery waveforms are biphasic. The left dorsalis pedis waveforms are biphasic. Right Segmental Pressures Right brachial= 163mmHg. Right posterior tibial artery = 64mmHg. Right dorsalis pedis artery = 60mmHg. Right digit = 62 mmHg. The right posterior tibial artery waveforms are monophasic. The right dorsalis pedis waveforms are monophasic. Indices The right ankle brachial index by the posterior tibial artery is 0.39. The right ankle brachial index by the dorsalis pedis is 0.37. The right digital-brachial index is 0.38. The left ankle brachial index by the posterior tibial artery is 0.66. The left ankle brachial index by the dorsalis pedis is 0.66. The left digital-brachial index is 0.74. VL/Ankle Brachial Index Interpretation Summary Right RUSSELL 0.39, severe arterial insufficiency. Doppler/PVR waveforms of the rig ht ankle severely diminished at rest. Left RUSSELL 0.66, moderate arterial insufficiency. Doppler/PVR waveforms of the le ft ankle moderately diminished at rest. Ordering Physician: Wayne Jacobo Referring Physician: Nayeli Puente M.D. Performed By: Oscar Sheridan RVT
--- NOTE | 2024-02-19 08:56 | ED.VIS.LOWEX ---
HPI History of Present Illness Chief Complaint: Lower Extremity Injury Informant: patient and family Narrative Narrative: 53-year-old male presenting to the emergency room with right leg pain. Patient states that he has had chronic pain in the right leg for years. He has been in pain management and has been seeing spine surgery. He has had fusion from top to bottom. He is a long-term smoker smoking currently greater than a pack per day. He states that he smokes because of the pain. He also utilizes cannabis for pain as he states he is allergic to opioids. Patient notes that his symptoms such as calf pain and pain in his right foot are worse when he ambulates. He states that his foot and leg turned purple/blue when he walks. He was seen recently by primary care and was set up for RUSSELL and CTA with runoff with possible vascular referral based on those. He was also started on Pletal and aspirin. Patient states that he is not sure he can wait until the 18th for his exam. Patient notes that he hit his right anterior price on a trailer hitch about 1-1/2 months ago and he is still healing from the wounds. He notes scabs on the anterior mid and proximal price. Patient notes that the skin is peeling on his toes on the plantar surface particularly the 2 and 3 toes. [facility] Medical History Limited mobility Migraine headache Hypertension Vitamin D deficiency Wears glasses Anxiety Marijuana use Restless legs Back pain Smoker Shortness of breath on exertion Leg cramps History of pain when walking History of stress test Nausea Chronic nausea Back pain with history of spinal surgery Home Medications ?Medication ?Instructions ?Recorded ?Last Taken ?Type multivitamin with iron (Daily 1 tab PO DAILY SUPPLEMENT 08/14/20 Unknown History Multiple Vitamins with Iron tablet) Marijuana 1 bag inhalation DAILY 07/22/22 Unknown History lisinopril 20 mg tablet 20 mg PO DAILY #90 tabs 05/05/23 Unknown Rx cilostazol 100 mg tablet 100 mg PO BID #60 tabs 02/16/24 Unknown Rx sertraline 50 mg tablet (Zoloft) 100 mg (2 x 50 mg) PO DAILY #180 02/16/24 Unknown Rx tabs rivaroxaban 15 mg (42)-20 mg (9) See Rx Instructions PO .COMPLEX 02/19/24 Unknown Rx tablets in a starter pack (Xarelto #51 tabs DVT-PE Treatment 30-Day Starter) Allergy/AdvReac Type Severity Reaction Status Date / Time oxycodone (From Percocet) Allergy Hives Verified 02/19/24 08:17 propoxyphene (From Allergy Hives Verified 02/19/24 08:17 Darvocet-N) Opioids - Morphine Analogues AdvReac Intermediate RASH,SHAKY, Verified 02/19/24 08:17 ITCHY, DIFFICULTY BREATHING Family History Other CVA (cerebral vascular accident) Myocardial infarction Surgical History History of esophagogastroduodenoscopy (EGD) History of colonoscopy History of fusion of lumbar spine History of arthroscopic knee surgery History of fusion of cervical spine Social History Smoking Status: Heavy Smoker (>10/day) Tobacco: How many years used: 25 alcohol intake: never substance use type: other details: medical marijuana what type of physical activity do you participate in: walking, bicycling and other details: Stretching ROS ROS ED Constitutional Constitutional ED: Denies chills, fever(s) or weight loss Eyes Eyes: Denies change in vision or diplopia ENT ENT ED: Denies ear pain, rhinorrhea or sore throat Cardiovascular Cardiovascular: Denies chest pain, orthopnea, palpitations or racing heartbeat Respiratory/Chest Respiratory/Chest: Denies cough, dyspnea or orthopnea Gastrointestinal Gastrointestinal: Denies abdominal pain, diarrhea, nausea or vomiting Genitourinary Genitourinary ED: Denies dysuria, hematuria or urinary frequency Musculoskeletal Musculoskeletal: Reports back pain, neck pain and other Details: Right leg pain worse with ambulation skin discoloration with ambulating which resolves with elevation ; Denies arthralgias or myalgias Integumentary Denies abscess or rash Neurologic Neurologic: Denies headache(s) or weakness Psychiatric Psychiatric: Denies anxiety, depression, suicidal ideation or suicidal thoughts Endocrine Endocrinology: Denies polydipsia, polyphagia or polyuria Allergic/Immunologic Allergic/Immunologic ED: Denies mouth swelling, tongue swelling or urticaria EXAM Physical Exam Const Vital Signs: 02/19/24 08:16 02/19/24 08:16 02/19/24 09:16 Temperature 97.2 F L Temperature Source Temporal Pulse Rate 102 H 98 94 Respiratory Rate 14 14 18 Blood Pressure 169/101 H 159/105 H 148/99 H Blood Pressure Mean 123 123 115 Pulse Ox 99 100 99 Oxygen Delivery Method Room Air Room Air Room Air 02/19/24 11:00 02/19/24 12:00 02/19/24 13:35 Temperature 98.6 F Temperature Source Pulse Rate 100 86 87 Respiratory Rate 16 16 19 H Blood Pressure 152/94 H 139/83 H 114/73 Blood Pressure Mean 113 101 86 Pulse Ox 98 98 100 Oxygen Delivery Method Room Air Room Air Positive well nourished and well developed General Appearance ED: well developed HEENT Reports normocephalic, head/scalp atraumatic and moist mucous membranes Eyes PERRL and EOMs intact bilaterally Neck no lymphadenopathy, supple and no JVD Resp normal respiratory effort and clear to auscultation bilaterally Cardio regular rate, regular rhythm and no murmurs GI normal to inspection, nondistended, normoactive bowel sounds and non-tender Palpation: soft Back/Spine no CVA tenderness and normal ROM Extremity Extremity Narrative: Right leg while elevated in the bed shows a normal hue. There is some skin sloughing on the plantar surface of toes 2 and 3 webspaces. Diminished capillary refill of about 3-1/2 4 seconds. I do not palpate a popliteal pulse. I can faintly palpate a dorsalis pedis pulse. There is a dopplerable pulse. There is sparse hair. There are some healing wounds with no evidence of secondary infection of the anterior mid and proximal right price. General Extremety ED: Negative for edema General Extremity: Negative for edema Neuro oriented x3 and CN's II-XII intact bilaterally Sensorium / Orientation: alert Motor Exam: strength 5/5 throughout Psych mental status grossly normal Mood & Affect: Negative for depressed or tearful Skin no rashes or lesions noted and no wounds MDM MDM MDM Narrative Medical decision making narrative: Differential diagnosis includes peripheral vascular disease modification, neurologic impairment, dehydration, acute arterial occlusion, venous insufficiency White count 10.8. BMP is fairly normal except for glucose of 110. Lactic acid is 3.2. ABIs were obtained which tech tells me is a 0.3 on the right. CTA was obtained read by radiology reviewed by myself.. I discussed the case with vascular surgery who reviewed the films as well. They have come to the emergency department and spoke with the patient. Patient will be discharged home with Xarelto in addition to the Pletal and aspirin. He was given precautions to take only 1 aspirin per day. Plan is to have him come back to the hospital next week to the [facility] for possible intervention. As he is at rest with his leg elevated he has a foot and leg appear pink and warm. Patient reports that he cannot have opiate pain medication due to allergy. History & Record Review Discussion w/independent historian: Patient and Significant other Additional record(s) reviewed:: Prior outpatient record Lab Data Attestation: I reviewed the patient's lab results. Labs: Laboratory Results - last 24 hr 02/19/24 09:16 WBC 10.8 RBC 4.96 Hgb 15.0 Hct 47.0 MCV 94.8 H MCH 30.2 MCHC 31.9 L RDW Std Deviation 45.9 H RDW Coeff of Angelica 13.1 Plt Count 405 MPV 9.4 Immature Gran % (Auto) 0.600 Neut % (Auto) 62.5 Lymph % (Auto) 26.0 [place] % (Auto) 6.1 Eos % (Auto) 4.0 Baso % (Auto) 0.8 Absolute Neuts (auto) 6.7 Absolute Lymphs (auto) 2.80 Nucleated RBC % 0 Sodium 136 Potassium 4.0 Chloride 106 Carbon Dioxide 25.0 Anion Gap 5 BUN 15 Creatinine 1.21 Est GFR (MDRD) Af Amer 80 Est GFR (MDRD) Non-Af 66 BUN/Creatinine Ratio 12.4 Glucose 110 H Lactic Acid 3.2 H* Calcium 9.9 Radiography Diagnostic Testing: Clinical Impression(s) from Imaging Studies Abdomen/Pelvis CTA 02/19/24 10:40 IMPRESSION: No significant stenosis is seen. Calcific plaques of the abdominal aorta as well as the right and left common iliac arteries. Electronically Signed: Diego Berumen MD at 11:33 EDT , ADDENDUM: 02/19/24 1252 IMPRESSION: undefined Discharge Plan Triage Chief Complaint: Lower Extremity Injury ED Provider: Wayne Jacobo Dx/Rx/DC Orders Clinical Impression: Claudication, PVD (peripheral vascular disease) with claudication, Tobacco abuse Instructions: PAD Prescriptions: New Xarelto DVT-PE Treat 30d Start 15 mg (42)- 20 mg (9) tablets,dose pack See Rx Instructions .ROUTE .COMPLEX Qty: 51 0RF Rx Instructions: take one-15 mg tablet twice daily for 21 days, then one-20 mg tablet once daily; must take with meal/food No Action multivitamin with iron [Daily Multiple Vitamins/Iron] Tablet 1 tab PO DAILY Marijuana 1 bag inhalation DAILY cilostazol 100 mg tablet 100 mg PO BID Qty: 60 1RF sertraline [Zoloft] 50 mg tablet 100 mg PO DAILY Qty: 180 3RF lisinopril 20 mg tablet 20 mg PO DAILY Qty: 90 3RF Primary Care Provider: Nayeli Puente Referrals: Anthony Sanchez MD [Med Staff - Active Staff] - As soon as possible Nayeli Puente MD [Primary Care Provider] - Print Language: Yoruba Disposition Disposition: Home, Self Care
[2024-02-19 09:16] VITALS: BP 148/99; PULSE 94; RESP 18; O2SAT 99
[2024-02-19 09:22] LABS: Absolute Neutrophil Count 6.7 X10^3/uL (2.0-7.7); Basophil# 0.09 X10^3/uL; Basophil% 0.8 % (0-1); Eosinophil# 0.43 X10^3/uL; Mean Corp Hgb Conc 31.9 g/dL (32-36); Mean Corpuscular Hgb 30.2 pg (27.0-32.0); Mean Corpuscular Volume 94.8 fL (80-94); Mean Platelet Vol. 9.4 fl (6.2-12.0); Monocyte# 0.66 X10^3/uL; Monocyte% 6.1 % (0-10); NRBC Flagged by Analyzer 0 % (0-5); Neutrophil # 6.73 X10^3/uL (2.7-7.7); Neutrophil % 62.5 % (47-70); Platelet Count 405 K/mm3 (150-450); RBC Distribution Width CV 13.1 % (11.6-14.6); RBC Distribution Width SD 45.9 fl (35.1-43.9); Red Blood Count 4.96 M/mm3 (4.6-6.2); White Blood Count 10.8 K/mm3 (4.4-11.0)
[2024-02-19 09:34] LABS: Anion Gap 5 (5-15); BUN 15 mg/dL (7-18); BUN/Creat Ratio 12.4 RATIO (10-20); Calcium,Total 9.9 mg/dL (8.5-10.1); Chloride 106 mmol/L (98-107); Creatinine, Serum 1.21 mg/dL (0.70-1.30); EST Glomerular Filtration Rate 66 mL/min (>60); Est Glom Filt Rate - Afr Amer 80 mL/min (>60); Glucose 110 mg/dL (74-106); Sodium Level 136 mmol/L (136-145)
--- NOTE | 2024-02-19 09:57 | ED.RN ---
PT LACTIC ACID 3.2. DR CORNELIUS
[2024-02-19 09:58] LABS: Lactic Acid 3.2 mmol/L (0.4-1.9)
--- NOTE | 2024-02-19 10:40 | CT_ITS ---
STUDY: CTA OF THE ABDOMINAL AORTA AND BILATERAL LOWER EXTREMITIES REASON FOR EXAM: Male, 53 years old. leg pain diminished pulses RADIATION DOSAGE (If Supplied By Facility): CTDIvol = ( 8.37 ) mGy, DLP = ( 1768.35 ) mGycm TECHNIQUE: Axial CT angiography multi-detector data acquisition was obtained from the dome of the liver to the level of the ankles following intravenous administration of IV 100mL Isovue-370. Axial images and MIP images were reconstructed from the axial data set. Post-processing of the angiographic images was performed, with multiplanar reformation and 3D reconstruction. Individualized dose optimization techniques were used for this CT. TECHNICAL QUALITY: Good COMPARISON: None. Descriptors of Narrowing: None (0%) Mild (< 50%) Moderate (50-70%) Severe (70-90%) Subtotal/Total Occlusion (90-100%) Non-Evaluable (technically non-diagnostic FINDINGS: There is evidence of a coronary artery calcification. Fatty infiltration of the liver. Distended urinary bladder and spinal cord stimulator device is seen with the battery pack overlying the right Small right inguinal hernia containing fat. Prior fusion of the lower lumbar spine. Gluteal region. Abdominal aorta: Atherosclerotic plaque formation of the abdominal aorta. Celiac and superior mesenteric arteries: No demonstrated narrowing. Inferior mesenteric artery: No demonstrated narrowing. Right renal artery(arteries): No demonstrated narrowing. Left renal artery(arteries): No demonstrated narrowing. Right common iliac artery: Nonstenotic plaque formation of the right common iliac artery. Right external iliac artery: No demonstrated narrowing. Right internal iliac artery: No demonstrated narrowing. Left common iliac artery: Atherosclerotic plaque formation of the left common iliac artery. No significant stenosis is seen. Left external iliac artery: No demonstrated narrowing. Left internal iliac artery: No demonstrated narrowing. RIGHT LOWER EXTREMITY Right common femoral artery: No demonstrated narrowing. Right profundus femoris: No demonstrated narrowing. Right superficial femoral: No demonstrated narrowing. Right popliteal artery: No demonstrated narrowing. Right tibioperoneal trunk: No demonstrated narrowing. Right anterior tibial artery: No demonstrated narrowing. Right posterior tibial artery: No demonstrated narrowing. Right peroneal artery: No demonstrated narrowing. LEFT LOWER EXTREMITY Left common femoral artery: No demonstrated narrowing. Left profundus femoris: No demonstrated narrowing. Left superficial femoral: No demonstrated narrowing. Left popliteal artery: No demonstrated narrowing. Left tibioperoneal trunk: No demonstrated narrowing. Left anterior tibial artery: No demonstrated narrowing. Left posterior tibial artery: No demonstrated narrowing. Left peroneal artery: No demonstrated narrowing.
[2024-02-19 11:00] VITALS: BP 152/94; PULSE 100; RESP 16; O2SAT 98
[2024-02-19 12:00] VITALS: BP 139/83; PULSE 86; RESP 16; O2SAT 98
--- NOTE | 2024-02-19 12:35 | EX.PCM.CON.S ---
Assessment & Plan Assessment/Plan (1) PVD (peripheral vascular disease) with claudication: PLAN: Plan CTA images were reviewed and revealed a R popliteal artery occlusion with distal reconstitution via collaterals. Arterial study showed R RUSSELL 0.39 with monophasic waveforms. His case was discussed with Dr. Sanchez. Plan is for RLE angiogram in the [place] [employer] on an outpatient basis in the next week or so. Will initiate anticoagulation with Xarelto. Continue ASA 81mg daily and continue pletal. Patient was agreeable to this plan. I provided patient with copay card for Xarelto and card with our office phone numner. Our office will contact him with a date/time for the angiogram, he is advised to call sooner with questions/concerns. HPI Consult Data Date of Consult: 02/19/24 HPI Narrative HPI Narrative: EUGENIO WEBER, is a 53 M who presents to the ER with RLE pain, particularly in the toes. He reports that he has had chronic R lower leg pain for years. About 4 weeks ago, he has noticed this pain worsening and then today he had further worsening pain into his R great toe which brought him to the ER. He does not have pain after he has been at rest for a while, but has pain immediately upon walking. He also reports his second toe becomes discolored when walking. He does not have any wounds/gangrene of the toes. He has a few slowly healing scrapes to the R price. He is able to move his toes/foot. He has some numb areas across his leg/foot which are chronic, he does not have any new numbness/paresthesias. He does have significant chronic back pain and has spinal cord stimulator in place. He has been taking pletal as prescribed by his PCP since 02/15 with no relief to this point. He does take ASA daily at home. He has not had any prior vascular surgical interventions by his report. He does smoke both marijuana and cigarettes daily. He reports he has been smoking more of both recently due to his pain. He is not diabetic. [facility] Medical History Limited mobility Migraine headache Hypertension Vitamin D deficiency Wears glasses Anxiety Marijuana use Restless legs Back pain Smoker Shortness of breath on exertion Leg cramps History of pain when walking History of stress test Nausea Chronic nausea Back pain with history of spinal surgery Home Medications ?Medication ?Instructions ?Recorded ?Last Taken ?Type multivitamin with iron (Daily 1 tab PO DAILY SUPPLEMENT 08/14/20 Unknown History Multiple Vitamins with Iron tablet) Marijuana 1 bag inhalation DAILY 07/22/22 Unknown History lisinopril 20 mg tablet 20 mg PO DAILY #90 tabs 05/05/23 Unknown Rx cilostazol 100 mg tablet 100 mg PO BID #60 tabs 02/16/24 Unknown Rx sertraline 50 mg tablet (Zoloft) 100 mg (2 x 50 mg) PO DAILY #180 02/16/24 Unknown Rx tabs rivaroxaban 15 mg (42)-20 mg (9) See Rx Instructions PO .COMPLEX 02/19/24 Unknown Rx tablets in a starter pack (Xarelto #51 tabs DVT-PE Treatment 30-Day Starter) Allergy/AdvReac Type Severity Reaction Status Date / Time oxycodone (From Percocet) Allergy Hives Verified 02/19/24 08:17 propoxyphene (From Allergy Hives Verified 02/19/24 08:17 Darvocet-N) Opioids - Morphine Analogues AdvReac Intermediate RASH,SHAKY, Verified 02/19/24 08:17 ITCHY, DIFFICULTY BREATHING Family History Other CVA (cerebral vascular accident) Myocardial infarction Surgical History History of esophagogastroduodenoscopy (EGD) History of colonoscopy History of fusion of lumbar spine History of arthroscopic knee surgery History of fusion of cervical spine Social History Smoking Status: Heavy Smoker (>10/day) Tobacco: How many years used: 25 alcohol intake: never substance use type: other details: medical marijuana what type of physical activity do you participate in: walking, bicycling and other details: Stretching Physical Exam Const alert, oriented x3 and no apparent distress General Appearance: cooperative HEENT normocephalic, head/scalp atraumatic, hearing grossly normal bilaterally and external ears normal Eyes EOMs intact bilaterally General Eye: normal appearance of both eyes Neck General: normal visual inspection and trachea midline Resp normal respiratory effort, no retractions and no use of accessory muscles Effort and Inspection: able to speak in complete sentences Cardio regular rate and regular rhythm Extremity Extremity Narrative: RLE with nonpalpable popliteal, DP, PT pulses. DP and PT are monophasic on doppler. R foot is warm and pink. Motor function is intact. Sensory function is at his reported baseline. There is no apparent ischemic tissue injury. Skin no rashes or lesions noted Neuro oriented x3, CN's II-XII intact bilaterally and moves all extremities Speech: speech normal Psych mental status grossly normal, cooperative, affect normal, speech normal and activity/motor behavior normal Lab / Micro Data 02/19/24 09:16 02/19/24 09:16 Labs: Laboratory Results - last 24 hr 02/19/24 09:16: WBC 10.8, RBC 4.96, Hgb 15.0, Hct 47.0, MCV 94.8 H, MCH 30.2, MCHC 31.9 L, RDW Std Deviation 45.9 H, RDW Coeff of Angelica 13.1, Plt Count 405, MPV 9.4, Immature Gran % (Auto) 0.600, Neut % (Auto) 62.5, Lymph % (Auto) 26.0, [place] % (Auto) 6.1, Eos % (Auto) 4.0, Baso % (Auto) 0.8, Absolute Neuts (auto) 6.7, Absolute Lymphs (auto) 2.80, Nucleated RBC % 0, Sodium 136, Potassium 4.0, Chloride 106, Carbon Dioxide 25.0, Anion Gap 5, BUN 15, Creatinine 1.21, Est GFR (MDRD) Af Amer 80, Est GFR (MDRD) Non-Af 66, BUN/Creatinine Ratio 12.4, Glucose 110 H, Lactic Acid 3.2 H*, Calcium 9.9 Imaging Radiology Impression Abdomen/Pelvis CTA 02/19/24 10:40 IMPRESSION: No significant stenosis is seen. Calcific plaques of the abdominal aorta as well as the right and left common iliac arteries. Electronically Signed: Diego Berumen MD at 11:33 EDT ,
[2024-02-19 13:19] LABS: Reflex Lactate? Y
[2024-02-19 13:35] VITALS: BP 114/73; PULSE 87; RESP 19; TEMP 37; O2SAT 100
== END 2024-02-19 13:50 | disposition home or self-care (01) ==
PROVIDERS: Emergency Provider Emergency Medicine; PCP Internal Medicine; Visit Provider Emergency Medicine
DX: I73.9 Peripheral vascular disease, unspecified (principal); F17.210 Nicotine dependence, cigarettes, uncomplicated; F12.90 Cannabis use, unspecified, uncomplicated
CPT/HCPCS: 75635; 80048; 83605; 85025; 93922; 99282; Q9967; A4216

== ENCOUNTER 2024-02-24 12:27 | Inpatient (IN) | payer MEDICARE, SELFPAY ==
[2024-02-24 12:28] VITALS: BP 115/86; BP 118/87; PULSE 117; PULSE 128; RESP 18; TEMP 36.4; O2SAT 95; O2SAT 98; BMI 26.9
--- NOTE | 2024-02-24 12:59 | EX.ED.DYSGE1 ---
HPI History of Present Illness Chief Complaint: Lower Extremity Injury Informant: patient Narrative Narrative: 53-year-old male has been having pain in his low back and legs for years. Recently the pain is much more of an issue in his distal right lower leg and foot. He was seen here 5 days ago and had studies showing significant peripheral arterial disease in the right lower extremity. He saw vascular Dr. Sanchez and is scheduled for surgery soon, but the pain is getting significantly worse and persistent despite exertion and he was advised to come to the ER. Some of his lower extremity pains including that on the left side get better when he does manipulations about the back sits with ice on it for a long time, or has his manipulate a knot that he can feel in his low back, giving him some temporary relief however that is not helping the burning pain he is having in his right foot and distal lower leg now for the last several days. [facility] Medical History Limited mobility Migraine headache Hypertension Vitamin D deficiency Wears glasses Anxiety Marijuana use Restless legs Back pain Smoker Shortness of breath on exertion Leg cramps History of pain when walking History of stress test Nausea Chronic nausea Back pain with history of spinal surgery Home Medications ?Medication ?Instructions ?Recorded ?Last Taken ?Type multivitamin with iron (Daily 1 tab PO DAILY SUPPLEMENT 08/14/20 Unknown History Multiple Vitamins with Iron tablet) Marijuana 1 bag inhalation DAILY pain 07/22/22 Unknown History lisinopril 20 mg tablet 20 mg PO DAILY blood pressure #90 05/05/23 Unknown Rx tabs cilostazol 100 mg tablet 100 mg PO BID blood thinner #60 02/16/24 Unknown Rx tabs sertraline 50 mg tablet (Zoloft) 100 mg (2 x 50 mg) PO DAILY mood 02/16/24 Unknown Rx #180 tabs rivaroxaban 15 mg (42)-20 mg (9) See Rx Instructions PO .COMPLEX 02/19/24 Unknown Rx tablets in a starter pack (Xarelto blood thinner #51 tabs DVT-PE Treatment 30-Day Starter) aspirin 81 mg capsule 81 mg PO DAILY heart health 02/24/24 Unknown History Allergy/AdvReac Type Severity Reaction Status Date / Time oxycodone (From Percocet) Allergy Hives Verified 02/24/24 12:39 propoxyphene (From Allergy Hives Verified 02/24/24 12:39 Darvocet-N) Family History Other CVA (cerebral vascular accident) Myocardial infarction Surgical History S/P insertion of spinal cord stimulator History of esophagogastroduodenoscopy (EGD) History of colonoscopy History of fusion of lumbar spine History of arthroscopic knee surgery History of fusion of cervical spine Social History Smoking Status: Heavy Smoker (>10/day) Tobacco: How many years used: 25 alcohol intake: never substance use type: other details: medical marijuana what type of physical activity do you participate in: walking, bicycling and other details: Stretching ROS ROS ED Constitutional Constitutional ED: Denies chills or fever(s) Eyes Eyes: Denies change in vision or diplopia ENT ENT ED: Denies rhinorrhea or sore throat Cardiovascular Cardiovascular: Denies chest pain or palpitations Respiratory/Chest Respiratory/Chest: Denies cough or dyspnea Gastrointestinal Gastrointestinal: Denies abdominal pain, diarrhea, nausea or vomiting Genitourinary Genitourinary ED: Denies dysuria or hematuria Musculoskeletal Musculoskeletal: Reports as per HPI, back pain and extremity pain; Denies neck pain Integumentary Denies abscess or rash Neurologic Neurologic: Reports paresthesias RLE; Denies headache(s) or weakness Psychiatric Psychiatric: Denies suicidal thoughts EXAM Physical Exam Const Vital Signs: 02/24/24 12:28 02/24/24 12:28 02/24/24 13:28 Temperature 97.6 F L Temperature Source Temporal Pulse Rate 117 H 128 H 94 Respiratory Rate 18 18 16 Blood Pressure 118/87 H 115/86 H 117/83 H Blood Pressure Mean 97 95 94 Pulse Ox 95 98 97 Oxygen Delivery Method Room Air Room Air Room Air Positive well nourished and well developed General Appearance ED: well developed and NAD HEENT Reports moist mucous membranes normocephalic and atraumatic Eyes PERRL and EOMs intact bilaterally Neck full ROM and supple Resp normal respiratory effort and clear to auscultation bilaterally Cardio regular rate, regular rhythm and no murmurs GI non-tender and non-distended Auscultation: normoactive bowel sounds Palpation: soft Back/Spine no CVA tenderness General Back: other FROM Extremity normal to inspection Extremity Narrative: Patient has significant delayed cap refill right foot compared with the left. On the left I can feel a weak dorsalis pedis pulse, but I am not able to palpate 1 on the right. There is no pallor or cyanosis. He has hyperemia of the right foot with a 4-5-second cap refill compared with the 2-second on the left toes. General Extremety ED: Yes pulses abnormal; Negative for edema or tenderness General Extremity: pulses abnormal; Negative for edema Neuro oriented x3, CN's II-XII intact bilaterally and no sensory deficits noted Sensorium / Orientation: awake and alert Motor Exam: strength 5/5 throughout Psych mental status grossly normal Skin no rashes or lesions noted and no wounds MDM MDM MDM Narrative Medical decision making narrative: Patient sounds like he is having more than 1 issue, he is having back problems with sciatica, he had a prior fusion, but he is also likely having claudication due to these arterial occlusions and now is having constant discomfort with a significant delay in his cap refill right lower extremity. Discussed with Dr. Sanchez who agreed with the heparin drip and admitting him for further management. He was given analgesics which did help some. History & Record Review Additional record(s) reviewed:: Other (Prior RUSSELL 0.39 right lower extremity, CTA showing occlusion right superficial femoral artery and popliteal artery with distal reconstitution through posterior tibial) Lab Data Attestation: I reviewed the patient's lab results. Labs: Laboratory Results - last 24 hr 02/24/24 02/24/24 13:05 13:12 WBC 15.3 H RBC 4.99 Hgb 15.1 Hct 45.1 MCV 90.4 MCH 30.3 MCHC 33.5 RDW Std Deviation 42.6 RDW Coeff of Angelica 13.0 Plt Count 417 MPV 9.4 Immature Gran % (Auto) 0.300 Neut % (Auto) 73.1 H Lymph % (Auto) 18.7 L Ector % (Auto) 5.2 Eos % (Auto) 1.9 Baso % (Auto) 0.8 Absolute Neuts (auto) 11.2 H Absolute Lymphs (auto) 2.87 Nucleated RBC % 0 Sodium 136 Potassium 4.1 Chloride 108 H Carbon Dioxide 23.0 Anion Gap 5 BUN 21 H Creatinine 1.26 Estim Creat Clear Calc 82.28 Est GFR (MDRD) Af Amer 76 Est GFR (MDRD) Non-Af 63 BUN/Creatinine Ratio 16.7 Glucose 120 H Lactic Acid 1.3 Calcium 9.6 Management Discussion w/another healthcare provider: Security Rep (Vascular Dr. Sanchez) Discharge Plan Dx/Rx/DC Orders Clinical Impression: PVD (peripheral vascular disease) with claudication, Right popliteal artery occlusion, Back pain with history of spinal surgery Disposition Disposition: Acute Care Hospital [facility] Discharge Date/Time: 02/24/24 14:39
[2024-02-24] MEDS: Ondansetron 4 MG/2 ML Vial IV (13:13)
[2024-02-24 13:14] LABS: Absolute Lymphocyte Count 2.87 X10^3/uL (0.83-4.51); Absolute Neutrophil Count 11.2 X10^3/uL (2.0-7.7); Basophil# 0.12 X10^3/uL; Basophil% 0.8 % (0-1); Eosinophil# 0.29 X10^3/uL; Eosinophils% 1.9 % (0-5); Hematocrit 45.1 % (40-54); Hemoglobin 15.1 g/dL (13.0-16.5); Lymphocyte # 2.87 X10^3/ul (0.83-4.51); Lymphocyte % 18.7 % (19-41); Mean Corp Hgb Conc 33.5 g/dL (32-36); Mean Corpuscular Hgb 30.3 pg (27.0-32.0); Mean Corpuscular Volume 90.4 fL (80-94); Mean Platelet Vol. 9.4 fl (6.2-12.0); Monocyte# 0.79 X10^3/uL; Monocyte% 5.2 % (0-10); NRBC Flagged by Analyzer 0 % (0-5); Neutrophil % 73.1 % (47-70); Platelet Count 417 K/mm3 (150-450); RBC Distribution Width SD 42.6 fl (35.1-43.9); Red Blood Count 4.99 M/mm3 (4.6-6.2); White Blood Count 15.3 K/mm3 (4.4-11.0)
[2024-02-24] MEDS: HYDROmorphone 1 MG/ML Syringe IV (13:14)
[2024-02-24 13:28] VITALS: BP 117/83; PULSE 94; RESP 16; O2SAT 97
[2024-02-24 13:35] LABS: Anion Gap 5 (5-15); BUN 21 mg/dL (7-18); BUN/Creat Ratio 16.7 RATIO (10-20); Calcium,Total 9.6 mg/dL (8.5-10.1); Chloride 108 mmol/L (98-107); Creatinine, Serum 1.26 mg/dL (0.70-1.30); EST Glomerular Filtration Rate 63 mL/min (>60); Est Glom Filt Rate - Afr Amer 76 mL/min (>60); Estimated Creatinine Clearance 82.28 ml/min; Glucose 120 mg/dL (74-106); Potassium 4.1 mmol/L (3.5-5.1); Sodium Level 136 mmol/L (136-145)
--- NOTE | 2024-02-24 13:47 | NURSING ---
PCU TOURNEY RLE ISCHEMIA
[2024-02-24 13:54] LABS: Lactic Acid 1.3 mmol/L (0.4-1.9)
[2024-02-24 14:00] VITALS: BP 118/77; PULSE 82; RESP 14; O2SAT 97
[2024-02-24] MEDS: Heparin Injection (Vial) 5,000 UNIT/ML VIAL 7500 UNIT IV (14:03)
[2024-02-24 14:08] LABS: Prothrombin Time (Protime)PT. 22.9 SECONDS (11.7-14.9)
[2024-02-24 14:10] LABS: Partial Thromboplast Time 51.4 Seconds (24.1-36.2)
[2024-02-24] MEDS: HEPARIN/D5w 25,000 UNITS 25,000 UNITS/250 ML IV.SOLN. 14 UNITS CONT INF (14:10)
[2024-02-24 14:21] VITALS: BP 118/77; PULSE 82; RESP 14; TEMP 36.4; O2SAT 97
[2024-02-24 15:21] VITALS: BP 121/78; PULSE 74; RESP 16; TEMP 36.8; O2SAT 99
--- NOTE | 2024-02-24 16:05 | CASEMGMT ---
Insurance review for hospitals In-network with [facility] PPO insurance if transfer is recommended is as follows: [facility], [facility], [facility], [facility], [facility], [facility], [facility] ([facility]), [facility], [facility], and . Rylie Kaiser, Discharge Planning Asst.
[2024-02-24] MEDS: 0.9% Normal Saline (1000mL) 1,000 ML 75 ML IV (17:28)
[2024-02-24 17:37] VITALS: BMI 26.9
[2024-02-24 21:36] VITALS: BP 132/84; PULSE 65; RESP 16; TEMP 36.6; O2SAT 99
[2024-02-24] MEDS: Famotidine 20 MG Tablet PO (21:38)
[2024-02-24] MEDS: Cilostazol 50 MG Tablet 100 MG PO (21:39)
[2024-02-25] VITALS (17 sets, daily range): BP systolic 107–143; BP diastolic 60–102; PULSE 52–73; RESP 16–18; TEMP 36.6–36.7; O2SAT 95–100
[2024-02-25 05:01] LABS: Absolute Lymphocyte Count 3.32 X10^3/uL (0.83-4.51); Absolute Neutrophil Count 5.1 X10^3/uL (2.0-7.7); Basophil# 0.08 X10^3/uL; Basophil% 0.8 % (0-1); Eosinophil# 0.46 X10^3/uL; Eosinophils% 4.7 % (0-5); Hematocrit 42.3 % (40-54); Hemoglobin 13.7 g/dL (13.0-16.5); Lymphocyte # 3.32 X10^3/ul (0.83-4.51); Lymphocyte % 34.3 % (19-41); Mean Corp Hgb Conc 32.4 g/dL (32-36); Mean Corpuscular Hgb 29.9 pg (27.0-32.0); Mean Corpuscular Volume 92.4 fL (80-94); Mean Platelet Vol. 9.3 fl (6.2-12.0); Monocyte# 0.69 X10^3/uL; Monocyte% 7.1 % (0-10); NRBC Flagged by Analyzer 0 % (0-5); Neutrophil # 5.12 X10^3/uL (2.7-7.7); Neutrophil % 52.9 % (47-70); Platelet Count 373 K/mm3 (150-450); RBC Distribution Width SD 43.9 fl (35.1-43.9); Red Blood Count 4.58 M/mm3 (4.6-6.2); White Blood Count 9.7 K/mm3 (4.4-11.0)
[2024-02-25 05:19] LABS: Partial Thromboplast Time 78.9 Seconds (24.1-36.2)
[2024-02-25 05:22] LABS: Anion Gap 4 (5-15); BUN 15 mg/dL (7-18); BUN/Creat Ratio 13.4 RATIO (10-20); Calcium,Total 8.7 mg/dL (8.5-10.1); Chloride 109 mmol/L (98-107); Creatinine, Serum 1.12 mg/dL (0.70-1.30); EST Glomerular Filtration Rate 72 mL/min (>60); Est Glom Filt Rate - Afr Amer 88 mL/min (>60); Estimated Creatinine Clearance 92.57 ml/min; Glucose 111 mg/dL (74-106); Potassium 4.4 mmol/L (3.5-5.1); Sodium Level 136 mmol/L (136-145)
--- NOTE | 2024-02-25 05:55 | EKG12_ITS ---
Test Reason : AM EKG Blood Pressure : / mmHG Vent. Rate : 061 BPM Atrial Rate : 061 BPM P-R Int : 146 ms QRS Dur : 078 ms QT Int : 426 ms P-R-T Axes : 067 068 050 degrees QTc Int : 428 ms Normal sinus rhythm Normal ECG When compared with ECG of 13-SEP-2020 10:10, Nonspecific T wave abnormality now evident in Anterior leads Confirmed by Guevara Prado ([id number]), film editor CELSO ESPARZA ([id number]) on 02/25/2024 9:07:04 AM Referred By: Confirmed By:Guevara Prado
[2024-02-25] MEDS: Lisinopril 20 MG Tablet PO (06:44)
[2024-02-25] MEDS: Aspirin 81 MG TAB.CHEW PO (06:44)
[2024-02-25] MEDS: 0.9% Normal Saline (1000mL) 1,000 ML 75 ML IV ×2 (06:45→18:22)
--- NOTE | 2024-02-25 10:50 | CASEMGMT ---
RN CM Face to Face with patient for initial transition planning/care coordination assessment. RN CM introduced self and role at [facility]. Patient lying in bed, alert and oriented, sister at bedside. Patient willing to participate in assessment and is able to answer all questions appropriately. Care providers, pharmacy, and demographics verified. PCP: Kwame Specialists: Buck, pain; Bui, spinal ortho Preferred Pharmacy: [facility] Insurance: [employer] [facility] Prescription Benefit: yes Living Will/HPOA: none LNOK: sister Living Arrangements: Patient lives with sister in a house with first floor setup. Patient is independent at home Transportation: self, sister DME/HHC: Patient denies DME in the home. No previous HHC or SNF Patient wishes to discharge home, denies need for home health at this time. Patient states he has no further needs or concerns at this time. CM to follow for discharge planning needs that may arise. Disposition Plan: Patient to discharge home with family support and follow-up plans in place. Martita YEE, RN, CM
[2024-02-25 17:53] LABS: ACT Activated Clotting Time 238 sec (74-137)
[2024-02-25 17:54] LABS: ACT Activated Clotting Time 238 sec (74-137)
--- NOTE | 2024-02-25 18:02 | PCM.OPRPT ---
Report of Operation Date of Procedure: 02/25/24 Pre-Operative Diagnosis: atherosclerosis with rest pain, right lower extremity Post-Operative Diagnosis: same, thrombosed ectatic right popliteal artery Surgery/Procedure Performed:: aortogram, RLE runoff IVUS TP trunk, sfa/popliteal atherectomy/thrombectomy stent popliteal artery Surgeon: Anthony Sanchez Type of Anesthesia: Local and Sedation,Conscious Estimated Blood Loss (mL): 15 Description of Procedure: HPI: Patient is a 53-year-old male who has had chronic right lower extremity claudication with abrupt worsening and now with rest pain. He has a mixed picture of neurogenic and vascular etiologies with multiple prior spine interventions and a spine stimulator. He initially presented to the emergency room when his symptoms abruptly worsen and was found to have critical arterial insufficiency and a popliteal artery occlusion which appeared to be consistent with thrombosis either of in situ plaque or of an ectatic segment. His symptoms were attempted to be managed as an outpatient with plans for elective angiography however he returned to the emergency room with severe symptoms that were intolerable. He was then admitted and placed on a heparin drip and taken urgently now for angiography. Description of procedure: Upon obtaining informed consent and verification correct patient procedure site patient was taken to the [facility] Att[facility] where he was positioned prepped and draped in usual sterile fashion. Time was performed consultation administered Versed and fentanyl. The left common femoral artery was anesthetized and the vessel accessed under ultrasound guidance with micropuncture needle wire. This then exchanged for micropuncture sheath routine injection iliofemoral angiogram was performed feeling satisfactory positioning no extravasation or dissection. Through the micropuncture sheath Bentson wire was advanced into the abdominal aorta and the micropuncture sheath exchanged out for a 6 Egyptian sheath. Through the 6 Egyptian sheath an Omni Flush catheter advanced into the abdominal aorta and the subtraction aortogram pelvic angiogram was performed. We then navigated into the contralateral iliac artery with the Omni Flush catheter and Bentson wire advancing our catheter into the distal external iliac artery. From this position sequential right lower extremity subtraction angiography was performed which confirmed abrupt occlusion of the proximal popliteal artery with reconstitution of the below the knee popliteal artery and what appeared to be preserved three-vessel runoff. Patient was then heparinized and allowed to circulate for 3 minutes after which time the Bentson wire was readvanced and the Omni Flush catheter and short 6 Egyptian sheath were withdrawn and exchanged for a long 6 Egyptian destination sheath which was positioned in the distal SFA. From this position we advanced the Bentson wire and an angled quick cross catheter engaging the top Of the lesion crossing successfully and what appeared to be true lumen. There was a moderate amount of resistance. Did not necessarily feel consistent with acute thrombus nor with fully atherosclerotic occlusive process. The catheter was then advanced over the wire and positioned in the reconstituted segment and subtraction angiography confirmed satisfactory positioning with no extravasation or dissection. Through the quick cross catheter a command 18 wire was advanced and the catheter withdrawn. Intravascular shunt probe was then advanced and recorded pullback performed of the tibioperoneal trunk and the SFA popliteal. This confirmed a mixed atherosclerotic and thrombotic occlusive process with ectasia to 9 mm of the popliteal artery and areas of obvious thrombus. Given the mixed etiology it was felt that a Bard Rota Romeo would give us the best clinical outcome because it is capable of treating both thrombus and atherosclerosis and it is a combined thrombectomy atherectomy device. Also given the ectasia in the segment a covered stent was felt to be most appropriate. The ultrasound probe was then withdrawn across readvanced the command 18 wire was then exchanged for a Bentson wire and the long 6 Egyptian sheath exchanged out for a long 7 Egyptian destination sheath again advanced into the SFA. Quick cross was then readvanced and the Bentson exchanged for the Bard Rota Romeo wire. A Bard Rota Romeo was then prepped for manufactures instructions advanced over the wire. It was then engaged across the lesion for multiple passes without violating the distal endpoint until after 2 full passes and then completed. The third pass we traversed the entirety of the lesion. Repeat angiography revealed significant proven vessel appearance with a patent lumen with areas of moderate residual stenosis appearing to be consistent with atherosclerosis both at the proximal and distal ends. There is luminal irregularity in the mid segment which appeared to be more consistent with thrombus. Given the IVUS appearance as well as the post atherectomy appearance a covered stent was selected for the entirety of the segment. A 5 mm x 100 Winchester Viabahn covered self-expanding stent was then advanced in the position just above the anterior tibial origin and deployed. A second Winchester Viabahn 6 mm x 100 was advanced with satisfactory overlap proximally and then deployed. A final 8 mm x 100 Winchester Viabahn was advanced for the proximal section with satisfactory overlap and then deployed. A 4 mm x 80 angioplasty balloon was then advanced distally and inflated to nominal within the distal stent. This was then withdrawn and a 6 x 120 angioplasty balloon advanced and used to post dilate the mid and proximal segments. Completion angiography confirmed resolution of any residual stenosis with brisk contrast transit no extravasation or dissection. The tibial vessels were preserved with no evidence of embolization. The long 7 Egyptian sheath and exchanged over a short 7 Egyptian sheath and a minx closure device deployed followed by 2 minutes of manual pressure. The patient was then awakened from his sedation taken to the PCU for bedrest and recovery.
[2024-02-25] MEDS: Famotidine 20 MG Tablet PO (21:31)
[2024-02-25] MEDS: Cilostazol 50 MG Tablet 100 MG PO (21:31)
[2024-02-26 04:00] VITALS: BP 114/65; PULSE 57; RESP 16; TEMP 36.8; O2SAT 99
[2024-02-26] MEDS: 0.9% Normal Saline (1000mL) 1,000 ML 75 ML IV (06:04)
[2024-02-26 06:41] LABS: Hematocrit 40.7 % (40-54); Hemoglobin 13.3 g/dL (13.0-16.5); Mean Corp Hgb Conc 32.7 g/dL (32-36); Mean Corpuscular Hgb 30.5 pg (27.0-32.0); Mean Corpuscular Volume 93.3 fL (80-94); Mean Platelet Vol. 9.6 fl (6.2-12.0); Platelet Count 346 K/mm3 (150-450); RBC Distribution Width CV 12.9 % (11.6-14.6); RBC Distribution Width SD 44.3 fl (35.1-43.9); Red Blood Count 4.36 M/mm3 (4.6-6.2); White Blood Count 10.1 K/mm3 (4.4-11.0)
[2024-02-26 07:15] LABS: Anion Gap 5 (5-15); BUN 10 mg/dL (7-18); BUN/Creat Ratio 9.7 RATIO (10-20); Calcium,Total 8.7 mg/dL (8.5-10.1); Chloride 112 mmol/L (98-107); Creatinine, Serum 1.03 mg/dL (0.70-1.30); EST Glomerular Filtration Rate 80 mL/min (>60); Est Glom Filt Rate - Afr Amer 96 mL/min (>60); Estimated Creatinine Clearance 100.66 ml/min; Glucose 103 mg/dL (74-106); Potassium 4.3 mmol/L (3.5-5.1); Sodium Level 139 mmol/L (136-145)
[2024-02-26 08:30] VITALS: O2SAT 97
--- NOTE | 2024-02-26 08:45 | PCM.PN.SRG ---
Subjective Subjective Patient was seen resting comfortably in bed this morning. No bleeding from the access site. He reports that his foot pain has resolved, but he still has a lot of numbness. He has been up to ambulate around the room and has not had any pain with that in his lower leg/foot where as prior he couldn't take a step without pain. His toes were also previously tender to touch and this has improved. He has no complaints today other than his chronic back pain which is at baseline. He is eager for discharge home. Objective Data Objective Data Vital Signs: Vital Signs Temp Pulse Resp BP Pulse Ox O2 Del Method 98.3 F 57 L 16 114/65 97 Room Air 02/26/24 04:00 02/26/24 04:00 02/26/24 04:00 02/26/24 04:00 02/26/24 08:30 02/26/24 08:30 Oxygen Delivery Method Room Air Weight: 220 lb 10.923 oz Body Mass Index (BMI) 26.9 Intake & Output: Intake and Output for Last 24 Hours 02/24/24 02/25/24 02/26/24 23:59 23:59 23:59 Intake Total 889.13 / 889.13 1949.45 / 1949.45 877.5 / 877.5 Balance 889.13 / 889.13 1949.45 / 1949.45 877.5 / 877.5 Lab / Micro Data 02/26/24 05:49 02/26/24 05:49 Labs: Laboratory Results - last 24 hr 02/25/24 16:29: Activated Clotting Time 238 H 02/25/24 17:13: Activated Clotting Time 238 H 02/26/24 05:49: WBC 10.1, RBC 4.36 L, Hgb 13.3, Hct 40.7, MCV 93.3, MCH 30.5, MCHC 32.7, RDW Std Deviation 44.3 H, RDW Coeff of Angelica 12.9, Plt Count 346, MPV 9.6, Sodium 139, Potassium 4.3, Chloride 112 H, Carbon Dioxide 22.0, Anion Gap 5, BUN 10, Creatinine 1.03, Estim Creat Clear Calc 100.66, Est GFR (MDRD) Af Amer 96, Est GFR (MDRD) Non-Af 80, BUN/Creatinine Ratio 9.7 L, Glucose 103, Calcium 8.7 Physical Exam Const alert, oriented x3 and no apparent distress General Appearance: cooperative and comfortable HEENT normocephalic, head/scalp atraumatic, hearing grossly normal bilaterally, external ears normal and external nose normal Eyes EOMs intact bilaterally General Eye: normal appearance of both eyes Neck General: normal visual inspection and trachea midline Resp normal respiratory effort, normal air movement, no retractions and no use of accessory muscles Effort and Inspection: able to speak in complete sentences; Negative for labored, stridor, retractions or audible wheezes Cardio regular rate and regular rhythm Extremity Extremity Narrative: L groin access site with no focal swelling/hematoma, no apparent ecchymosis, no bleeding/drainage. R foot now with palpable dorsalis pedis pulse and strong biphasic PT doppler signals. R foot is warm and pink. Skin no rashes or lesions noted Trauma: no lacerations or abrasions Wounds: Negative for wounds noted Neuro oriented x3, CN's II-XII intact bilaterally, moves all extremities and no focal motor deficits Speech: speech normal Psych mental status grossly normal Appearance: grossly normal Attitude: calm and engaged Activity / Motor Behavior: appropriate eye contact Speech: normal speech Mood & Affect: euthymic mood Judgement: judgement good Assessment & Plan Assessment/Plan (1) Right popliteal artery occlusion: PLAN: Plan He is s/p revascularization with R popliteal atherectomy/thrombectomy and covered stent placement. He has had resolution of his rest pain/short distance claudication in his R foot. He now has palpable R pedal pulse. Will restart Xarelto today. Continue ASA and Plavix. Will plan for discharge this morning.
[2024-02-26 08:53] VITALS: BP 122/89; PULSE 64; RESP 14; TEMP 36.7; O2SAT 100
--- NOTE | 2024-02-26 08:57 | PCM.DC ---
Discharge Instructions Diet Discharge Diet: No restrictions Activity May shower in (days): 1 Weight Bearing Status: Weight bearing as tolerated Lifting Restrictions: Do not lift greater than 20 pounds for 2 weeks Dressing / Incision Call your doctor if your incision/area has: Sudden Increased Bleeding, Increased Pain/ Swelling and Foul Smelling Discharge Call your doctor if you observe: Fever of 101 or Higher and Uncontrolled pain Remove Dressing in: 1 day Follow Up Care Please Follow Up With: Carolina Corey PA When: 3-4 weeks Discharge Plan Admission Admit Date/Time: 02/24/24 13:47 Primary Reason for Your Visit: R popliteal artery occlusion Attending Provider: Anthony Sancehz Primary Care Provider: Nayeli Puente Instructions Additional Instructions / Restrictions: Do not submerge the puncture site in water such as to take a bath, go swimming, use a hot tub etc for 2 weeks. Do not lift greater than 20 pounds for 2 weeks. Otherwise, please continue with activity as tolerated. Please continue to take Xarelto and Aspirin as prescribed. You have been started on an additional medication called Plavix 75mg tablet to be taken by mouth once daily as well. Please monitor for any signs of bleeding such as blood in your stools or urine, if this occurs contact our office. Please return to the office in 3-4 weeks. If you have any questions or concerns or to schedule/change your appointment, please call [phone]. Discharge Orders/Prescriptions Prescriptions: New clopidogrel 75 mg Tablet 75 mg PO DAILY Qty: 90 3RF Continued multivitamin with iron [Daily Multiple Vitamins/Iron] Tablet 1 tab PO DAILY Marijuana 1 bag inhalation DAILY cilostazol 100 mg tablet 100 mg PO BID Qty: 60 1RF sertraline [Zoloft] 50 mg tablet 100 mg PO DAILY Qty: 180 3RF Xarelto DVT-PE Treat 30d Start 15 mg (42)- 20 mg (9) tablets,dose pack See Rx Instructions .ROUTE .COMPLEX Qty: 51 0RF Rx Instructions: take one-15 mg tablet twice daily for 21 days, then one-20 mg tablet once daily; must take with meal/food aspirin 81 mg capsule 81 mg PO DAILY lisinopril 20 mg tablet 20 mg PO DAILY Qty: 90 3RF Referrals / Follow Up: Nayeli Puente MD [Primary Care Provider] - Disposition Disposition (needs filled in before D/C Order can be placed): Home, Self Care
[2024-02-26] MEDS: Sertraline 100 MG Tablet PO (09:02)
[2024-02-26] MEDS: Multivitamins,Ther W-Minerals Tablet 1 TABLET PO (09:02)
[2024-02-26] MEDS: Lisinopril 20 MG Tablet PO (09:02)
[2024-02-26] MEDS: Rivaroxaban 15 MG Tablet PO (09:02)
[2024-02-26] MEDS: Cilostazol 50 MG Tablet 100 MG PO (09:03)
[2024-02-26] MEDS: Aspirin 81 MG TAB.CHEW PO (09:03)
--- NOTE | 2024-02-26 09:06 | PCM.DC.SUM ---
Providers Date of Admission: 02/24/24 Primary Care Physician: Dr. Nayeli Puente MD Reason For Visit: ATHEROSCLEROSIS W/ REST PAIN, RIGHT LOWER EXTREMIT Diagnosis Discharge Diagnosis (1) Right popliteal artery occlusion: Status: Acute Code(s): I70.201 - Unspecified atherosclerosis of [place] arteries of extremities, right leg Plan He is s/p revascularization with R popliteal atherectomy/thrombectomy and covered stent placement. He has had resolution of his rest pain/short distance claudication in his R foot. He now has palpable R pedal pulse. Will restart Xarelto today. Continue ASA and Plavix. Will plan for discharge this morning. Medications at Discharge Home Medications multivitamin with iron (Daily Multiple Vitamins with Iron tablet) 1 tab PO DAILY SUPPLEMENT 08/14/20 Marijuana 1 bag inhalation DAILY pain 07/22/22 lisinopril 20 mg tablet 20 mg PO DAILY blood pressure #90 tabs 05/05/23 cilostazol 100 mg tablet 100 mg PO BID blood thinner #60 tabs 02/16/24 sertraline 50 mg tablet (Zoloft) 100 mg (2 x 50 mg) PO DAILY mood #180 tabs 02/16/24 rivaroxaban 15 mg (42)-20 mg (9) tablets in a starter pack (Xarelto DVT-PE Treatment 30-Day Starter) See Rx Instructions PO .COMPLEX blood thinner #51 tabs 02/19/24 aspirin 81 mg capsule 81 mg PO DAILY heart health 02/24/24 clopidogrel 75 mg tablet 75 mg PO DAILY #90 tabs 02/26/24 Hospital Course Summary of Care Provided Hospital Course: Mr. Shah is a 53 y/o male who has had chronic right lower extremity claudication with abrupt worsening and now with rest pain. He has a mixed picture of neurogenic and vascular etiologies with multiple prior spine interventions and a spine stimulator. He initially presented to the emergency room when his symptoms abruptly worsen and was found to have critical arterial insufficiency and a popliteal artery occlusion which appeared to be consistent with thrombosis either of in situ plaque or of an ectatic segment. His symptoms were attempted to be managed as an outpatient with plans for elective angiography however he returned to the emergency room with severe symptoms that were intolerable on 02/24/24. He was then admitted and placed on a heparin drip and he underwent urgent angiography with R popliteal atherectomy/thrombectomy and stent on 02/25/24. There was a great result at the end of the procedure and he tolerated well. He has had resolution of his rest pain/claudication. He does have persistent numbness. He now has palpable R pedal pulse. He is stable for discharge home with planned outpatient follow-up in 3-4 weeks. He will continue with Xarelto, Plavix, and ASA. Physical Exam Const alert, oriented x3 and no apparent distress General Appearance: cooperative and comfortable HEENT normocephalic, head/scalp atraumatic, hearing grossly normal bilaterally, external ears normal and external nose normal Eyes EOMs intact bilaterally General Eye: normal appearance of both eyes Neck General: normal visual inspection and trachea midline Resp normal respiratory effort, normal air movement, no retractions and no use of accessory muscles Effort and Inspection: able to speak in complete sentences; Negative for labored, stridor, retractions or audible wheezes Cardio regular rate and regular rhythm Extremity Extremity Narrative: L groin access site with no focal swelling/hematoma, no apparent ecchymosis, no bleeding/drainage. R foot now with palpable dorsalis pedis pulse and strong biphasic PT doppler signals. R foot is warm and pink. Skin no rashes or lesions noted Trauma: no lacerations or abrasions Wounds: Negative for wounds noted Neuro oriented x3, CN's II-XII intact bilaterally, moves all extremities and no focal motor deficits Speech: speech normal Psych mental status grossly normal Appearance: grossly normal Attitude: calm and engaged Activity / Motor Behavior: appropriate eye contact Speech: normal speech Mood & Affect: euthymic mood Judgement: judgement good Weight / BMI Weight Weight: 220 lb 10.923 oz Body Mass Index (BMI) 26.9 ABG / Lab / Microbiology Data 02/26/24 05:49 02/26/24 05:49 Laboratory: Laboratory Results - last 24 hr 02/25/24 16:29: Activated Clotting Time 238 H 02/25/24 17:13: Activated Clotting Time 238 H 02/26/24 05:49: WBC 10.1, RBC 4.36 L, Hgb 13.3, Hct 40.7, MCV 93.3, MCH 30.5, MCHC 32.7, RDW Std Deviation 44.3 H, RDW Coeff of Angelica 12.9, Plt Count 346, MPV 9.6, Sodium 139, Potassium 4.3, Chloride 112 H, Carbon Dioxide 22.0, Anion Gap 5, BUN 10, Creatinine 1.03, Estim Creat Clear Calc 100.66, Est GFR (MDRD) Af Amer 96, Est GFR (MDRD) Non-Af 80, BUN/Creatinine Ratio 9.7 L, Glucose 103, Calcium 8.7 D/C Instructions Discharge Diet: No restrictions May shower in (days): 1 Weight Bearing Status: Weight bearing as tolerated Call your doctor if your incision/area has: Sudden Increased Bleeding, Increased Pain/ Swelling and Foul Smelling Discharge Call your doctor if you observe: Fever of 101 or Higher and Uncontrolled pain Please Follow Up With: Carolina Corey PA When: 3-4 weeks Meaningful Use Info Meaningful Use Meaningful Use Diagnoses (Choose all that apply): None applicable Ischemic Stroke Statin Dosing Therapy Reference: STATIN DOSE THERAPY REFERENCE: * Patients > 75 years receive moderate or high dose statin therapy. * Patients 75 years or YOUNGER should receive HIGH intensity statin dose unless contraindicated. You will be required to document reason for non-treatment if statin daily dose does not meet guidelines. HIGH DOSE STATIN THERAPY DAILY Atorvastatin > than or = to 40 mg Rosuvastatin > than or = to 20 mg Amlodipine + Atorvastatin > than or = to 2.5/40 mg Ezetimibe + Simvastatin 10/80 mg Simvastatin 80mg Discharge Plan Admission Admit Date/Time: 02/24/24 13:47 Primary Reason for Your Visit: R popliteal artery occlusion Attending Provider: Anthony Sanchez Primary Care Provider: Nayeli Puente Instructions Additional Instructions / Restrictions: Do not submerge the puncture site in water such as to take a bath, go swimming, use a hot tub etc for 2 weeks. Do not lift greater than 20 pounds for 2 weeks. Otherwise, please continue with activity as tolerated. Please continue to take Xarelto and Aspirin as prescribed. You have been started on an additional medication called Plavix 75mg tablet to be taken by mouth once daily as well. Please monitor for any signs of bleeding such as blood in your stools or urine, if this occurs contact our office. Please return to the office in 3-4 weeks. If you have any questions or concerns or to schedule/change your appointment, please call [phone]. Discharge Orders/Prescriptions Prescriptions: New clopidogrel 75 mg Tablet 75 mg PO DAILY Qty: 90 3RF Continued multivitamin with iron [Daily Multiple Vitamins/Iron] Tablet 1 tab PO DAILY Marijuana 1 bag inhalation DAILY cilostazol 100 mg tablet 100 mg PO BID Qty: 60 1RF sertraline [Zoloft] 50 mg tablet 100 mg PO DAILY Qty: 180 3RF Xarelto DVT-PE Treat 30d Start 15 mg (42)- 20 mg (9) tablets,dose pack See Rx Instructions .ROUTE .COMPLEX Qty: 51 0RF Rx Instructions: take one-15 mg tablet twice daily for 21 days, then one-20 mg tablet once daily; must take with meal/food aspirin 81 mg capsule 81 mg PO DAILY lisinopril 20 mg tablet 20 mg PO DAILY Qty: 90 3RF Referrals / Follow Up: Nayeli Puente MD [Primary Care Provider] - Disposition Disposition (needs filled in before D/C Order can be placed): Home, Self Care
[2024-02-26] MEDS: Clopidogrel Bisulfate 75 MG Tablet PO (09:09)
[2024-02-26] MEDS: Famotidine 20 MG Tablet PO (09:09)
--- NOTE | 2024-02-26 09:29 | CASEMGMT ---
Patient has order for discharge. RN CM in to discuss needs at discharge. Patient denies needs or help at discharge. Patient had no further questions or concerns.
--- NOTE | 2024-02-26 09:33 | PHA.DC.MC.R ---
Pharmacy [facility] has performed discharge medication reconciliation and counseling for this patient. The patient's discharge medication list was reviewed for discrepancies and discrepancies were resolved. The patient was counseled on the following discharge medications and changes in medications for homegoing were reviewed. 1. PLAVIX The Reason for Use, instructions for use, and potential side effects were reviewed for all new medications. The patient's questions regarding all of their medications were answered. The patient was able to verbally demonstrate an understanding of their discharge medications. The patient was counselled by Jose Guadalupe Portillo PharmD Candidate Medications at Discharge Home Medications multivitamin with iron (Daily Multiple Vitamins with Iron tablet) 1 tab PO DAILY SUPPLEMENT 08/14/20 Marijuana 1 bag inhalation DAILY pain 07/22/22 lisinopril 20 mg tablet 20 mg PO DAILY blood pressure #90 tabs 05/05/23 cilostazol 100 mg tablet 100 mg PO BID blood thinner #60 tabs 02/16/24 sertraline 50 mg tablet (Zoloft) 100 mg (2 x 50 mg) PO DAILY mood #180 tabs 02/16/24 rivaroxaban 15 mg (42)-20 mg (9) tablets in a starter pack (Xarelto DVT-PE Treatment 30-Day Starter) See Rx Instructions PO .COMPLEX blood thinner #51 tabs 02/19/24 aspirin 81 mg capsule 81 mg PO DAILY heart health 02/24/24 clopidogrel 75 mg tablet 75 mg PO DAILY #90 tabs 02/26/24
--- NOTE | 2024-02-27 16:49 | PCM.HP.STD ---
HPI - General General Date of Admission: 02/24/24 HPI Narrative EUGENIO WEBER, is a 53 M who presents with worsening right lower extremity rest pain that began abruptly a week ago. He was found to have occlusion of right proximal to mid popliteal artery that appeared acute with possible thrombus. He was placed on anticoagulation with plans for outpatient angio in short interval however his pain is not tolerable and there are delays accumulating in the efforts to arrange outpatient angio. He presented back to the ED with uncontrolled pain. [facility] Medical History Limited mobility Migraine headache Hypertension Vitamin D deficiency Wears glasses Anxiety Marijuana use Restless legs Back pain Smoker Shortness of breath on exertion Leg cramps History of pain when walking History of stress test Nausea Chronic nausea Back pain with history of spinal surgery Home Medications ?Medication ?Instructions ?Recorded ?Last Taken ?Type multivitamin with iron (Daily 1 tab PO DAILY SUPPLEMENT 08/14/20 Unknown History Multiple Vitamins with Iron tablet) Marijuana 1 bag inhalation DAILY pain 07/22/22 02/24/24 History lisinopril 20 mg tablet 20 mg PO DAILY blood pressure #90 05/05/23 02/24/24 Rx tabs cilostazol 100 mg tablet 100 mg PO BID blood thinner #60 02/16/24 02/24/24 Rx tabs sertraline 50 mg tablet (Zoloft) 100 mg (2 x 50 mg) PO DAILY mood 02/16/24 02/24/24 Rx #180 tabs rivaroxaban 15 mg (42)-20 mg (9) See Rx Instructions PO .COMPLEX 02/19/24 02/24/24 Rx tablets in a starter pack (Xarelto blood thinner #51 tabs DVT-PE Treatment 30-Day Starter) aspirin 81 mg capsule 81 mg PO DAILY heart health 02/24/24 02/24/24 History clopidogrel 75 mg tablet 75 mg PO DAILY #90 tabs 02/26/24 Unknown Rx Allergy/AdvReac Type Severity Reaction Status Date / Time oxycodone (From Percocet) Allergy Hives Verified 02/24/24 12:39 propoxyphene (From Allergy Hives Verified 02/24/24 12:39 Darvocet-N) Family History Other CVA (cerebral vascular accident) Myocardial infarction Surgical History S/P insertion of spinal cord stimulator History of esophagogastroduodenoscopy (EGD) History of colonoscopy History of fusion of lumbar spine History of arthroscopic knee surgery History of fusion of cervical spine Social History (Updated 02/24/24 @ 17:44 by Michelle Quezada) Smoking Status: Heavy Smoker (>10/day) Tobacco: How many years used: 25 alcohol intake: never substance use type: marijuana and other details: medical marijuana what type of physical activity do you participate in: walking, bicycling and other details: Stretching ROS Constitutional Constitutional: Denies chills, fever(s), frequent falls, lethargy or weakness Eyes Eyes: Denies blind spots, change in vision or loss of vision ENT HEENT: Denies bleeding gums, hoarseness or sore throat Cardiovascular Cardiovascular: Reports bluish discoloration of hand/feet, claudication and cold extremities; Denies abdominal pain, chest pain with activity, cyanosis, dyspnea on exertion, erythema on extremities, irregular heart rhythm, leg edema, leg ulcers, numbness in extremities or weakness in extremities Respiratory/Chest Respiratory/Chest: Denies cough, excessive phlegm production, shortness of breath at rest, shortness of breath with exertion or wheezing Gastrointestinal Gastrointestinal: Denies anorexia, change in stool character, constipation, diarrhea, melena or rectal bleeding Genitourinary Genitourinary: Denies dysuria or hematuria Musculoskeletal Musculoskeletal: Denies abnormal gait Integumentary Integumentary: Denies erythema, non-healing lesions or wounds Neurologic Neurologic: Denies abnormal speech, focal weakness, headache(s), loss of vision, numbness, paresthesias or sensory deficit Hematologic/Lymphatic Hematologic/Lymphatic: Denies easy bleeding, easy bruising or lymphadenopathy Vital Signs Vital Signs Vital Signs: Weight Weight: 220 lb 10.923 oz Body Mass Index (BMI) 26.9 Physical Exam Const alert, oriented x3, no apparent distress and healthy appearing General Appearance: cooperative; Negative for combative or lethargic Orientation / Consciousness: awake Exam Limitations: no limitations HEENT Head and Scalp: normocephalic and atraumatic Eyes EOMs intact bilaterally General Eye: normal appearance of both eyes Neck full ROM, no lymphadenopathy and thyroid normal General: trachea midline; Negative for lymphadenopathy or tenderness Thyroid: thyroid normal Resp normal respiratory effort and no use of accessory muscles Effort and Inspection: Negative for labored, stridor or audible wheezes Cardio regular rate and regular rhythm Peripheral Pulses: brachial pulses present, radial pulses present and femoral pulses present; Negative for popliteal pulses present, posterior tibial pulses present or dorsalis pedis pulses present Back/Spine Cervical Spine: cervical ROM normal Extremity full ROM, normal capillary refill and no clubbing, cyanosis or edema Skin no rashes or lesions noted and no wounds Neuro oriented x3, CN's II-XII intact bilaterally, no focal motor deficits and no sensory deficits noted Psych thought process normal, cooperative, affect normal, speech normal and activity/motor behavior normal Results Lab / Micro Data 02/26/24 05:49 02/26/24 05:49 Assessment & Plan Assessment/Plan (1) Atherosclerosis of [place] artery of right leg with rest pain: PLAN: -admit PCU -heparin drip -angio
== END 2024-02-26 10:06 | disposition home or self-care (01) | DRG 272 ==
LOC: ED 13:13 → PCU 14:20
PROVIDERS: Admitting Provider Surgery Trauma Surgery; Emergency Provider Emergency Medicine; PCP Internal Medicine; Visit Provider Surgery Trauma Surgery
DX: I70.221 Atherosclerosis of native arteries of extremities with rest pain, right leg (principal); F17.200 Nicotine dependence, unspecified, uncomplicated; I10 Essential (primary) hypertension; M54.9 Dorsalgia, unspecified; Z79.01 Long term (current) use of anticoagulants; Z79.02 Long term (current) use of antithrombotics/antiplatelets; Z79.82 Long term (current) use of aspirin
CPT/HCPCS: 36200; 36245; 36415; 37227; 37252; 37253; 75625; 75710; 76937; 80048; 83605; 85025; 85027; 85347; 85610; 85730; 93005; 94668; 99152; 99153; 99252; 99285; C1724; C1725; C1760; C1769; C1874; C1887; C1894; Q9967; A4216; G0463; J2405

== ENCOUNTER → 2024-03-02 | Outpatient (CLI) | payer MEDICARE, SELFPAY ==
--- NOTE | 2024-03-02 08:01 | ART_ITS ---
Reason For Study: S/P Rt POP A Stent Procedure A bilateral lower extremity continuous wave Doppler with analog waveform analysis and ankle brachial indexes. Left Segmental Pressures Left brachial= 128mmHg. Left posterior tibial artery = 95mmHg. Left dorsalis pedis artery = 99mmHg. Left digit = 100 mmHg. The left posterior tibial artery waveforms are biphasic. The left dorsalis pedis waveforms are biphasic. Right Segmental Pressures Right brachial= 128mmHg. Right posterior tibial artery = 130mmHg. Right dorsalis pedis artery = 130mmHg. Right digit = 101 mmHg. The right posterior tibial artery waveforms are triphasic. The right dorsalis pedis waveforms are triphasic. Indices The right ankle brachial index by the posterior tibial artery is 1.02. The right ankle brachial index by the dorsalis pedis is 1.02. The right digital-brachial index is 0.79. The left ankle brachial index by the posterior tibial artery is 0.74. The left ankle brachial index by the dorsalis pedis is 0.77. The left digital-brachial index is 0.78. VL/Ankle Brachial Index Interpretation Summary Right RUSSELL 1.02, normal. TBI and Doppler/PVR waveforms of the right ankle normal at rest. Left RUSSELL 0.77, moderate arterial insufficiency. Doppler/PVR waveforms of the le ft ankle moderately diminished at rest. Ordering Physician: Nayeli De Leon Referring Physician: NAYELI DE LEON MD Performed By: Oscar Sheridan RVT and Student
== END | disposition home or self-care (01) ==
PROVIDERS: PCP Internal Medicine; Referring Provider Internal Medicine; Visit Provider Internal Medicine
DX: I73.9 Peripheral vascular disease, unspecified (principal)
CPT/HCPCS: 93922

== ENCOUNTER → 2024-03-17 | Outpatient (CLI) | payer MEDICARE, SELFPAY ==
--- NOTE | 2024-03-17 08:20 | CYSPIN_PTH ---
PATIENT: EUGENIO WEBER LOC: PSN U#:[id number] AGE/SX: 54/M ROOM: RE03/17/[address]: Dr. Nayeli Puente MD : 1970 BED: DIS: 03/17/2024 SPEC #: [id number] RECD: 03/17/24 09:22 STATUS: MOLLY ERAZO #: [id number] MCKENNA: 03/17/24 08:[address]: Nayeli Puente DEPT: CYTOLOGY RECD BY: Linda Levin Tissues: Urine Procedures: Pap Stain (control) Special Stain Group II Cytospin Fluid HEADER OPERATION: Not noted PRE-OP DIAGNOSIS: Right foot numbness TISSUE SUBMITTED: Urine for cytology DIAGNOSIS CYTOLOGY Urine for cytology (cytospin): Mildly atypical urothelial cells noted (AUC), Payal System Category III. Mild acute inflammation. See comment. KEYLA/ 03/17/2024 COMMENT Clinical correlation and appropriate follow up are necessary. The Payal System for urine cytology diagnostic categorization was used in the evaluation of this case. Case has been reviewed in consultation with Dr. Owens who concurs with the above diagnosis. IDC:AM CYTOLOGY STUDY Slides are reviewed. CYTOLOGY GROSS Received is 25 ml of yellow-cloudy fluid labeled with the patient's name and and designated per the requisition as urine. Submitted for cytology preparation. Mr 03/17/2024 TC:5 CPT: 77836
[2024-03-17 08:21] LABS: Bacteria 0 SEEN /hpf (None Seen); Cytology, Body Fluid / CSF SEE PATHOLOGY REPORT; Mucous, Urine 0 SEEN /hpf (<or=2+); Red Blood Cells-Urine 0 SEEN /hpf (0-5); Squamous Epithelial Cells - UA 0 SEEN /hpf (0-5); White Blood Cells 0 SEEN /hpf (0-5)
[2024-03-17 09:11] LABS: Glucose, Dipstick Normal (Normal); Ketone-Dipstick Negative (Negative); Leukocyte Esterase-Dipstick Negative /ul (Negative); Nitrite-Dipstick Negative (Negative); Occult Blood-Urine 10 /ul (Negative); Protein-Dipstick Negative (Negative); Specific Gravity, Urine 1.015 (1.002-1.030); Urine Bilirubin Dipstick Negative (Negative); Urine Urobilinogen Normal (Normal)
[2024-03-17 09:13] LABS: Color, Urine Yellow (Yellow); Urine Clarity Clear (Clear)
--- NOTE | 2024-03-17 09:45 | US_ITS ---
EXAM: US RETROPERITONEAL LIMITED, RENAL CLINICAL INDICATION: Hematuria TECHNIQUE: Limited grayscale and color Doppler sonographic evaluation of the retroperitoneum was performed. COMPARISON: No relevant prior studies available. FINDINGS: RIGHT KIDNEY: Right kidney measures 12.9 cm in length. No hydronephrosis. No shadowing calculus. No perinephric collection is demonstrated. LEFT KIDNEY: Left kidney measures 12.1 cm in length. Small left renal stone. No hydronephrosis. No perinephric collection is demonstrated. BLADDER: Urinary bladder is normal. SOFT TISSUES: Prostate gland is prominent in size measuring 5.4 x 3.8 x 3.0 cm. US/Kidney and Bladder IMPRESSION: No evidence of renal mass or hydronephrosis. Left nephrolithiasis. Prostatomegaly. Electronically Signed: Casey Valera MD at 11:00 EDT ,
--- NOTE | 2024-03-17 12:50 | NEURO ---
NCS and/or EMG Patient Report Ordering Doctor: Nayeli Puente DATE OF SERVICE: 03/17/24 [place] is for electrodiagnostic testing of the right lower limb he reports of burning numbness and tingling in the right lower leg and foot. He has a history of lower back pain and lumbar fusion. Electrodiagnostic findings: Right peroneal motor response could not be obtained. Right tibial motor response demonstrates normal distal latency, amplitude and conduction velocity. Prolonged right sural latency. Absent right superficial peroneal and medial plantar responses. Prolonged H?reflex bilaterally. Needle EMG testing was performed the right lower limb. All muscles tested showed no evidence of denervation with normal motor unit action potentials. Electrodiagnostic impression: This is an abnormal study in the right lower limb. 1. 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 This response cannot be obtained, cannot be determined whether there is conduction block. 2. 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 This may contribute to his sensory loss on the right foot and lower leg. Would consider correlation with with the left lower limb to better evaluate for peripheral polyneuropathy. 3. No electrodiagnostic evidence for lumbosacral radiculopathy. Multi Select Codes Neurology Neurology Interp Codes: 89735-29 Musc test done w/n test comp (interp) and 17033-99 Nrv cndj test 7-8 studies (interp)
== END | disposition home or self-care (01) ==
PROVIDERS: PCP Internal Medicine; Referring Provider Internal Medicine; Visit Provider Internal Medicine
DX: R20.0 Anesthesia of skin (principal); I70.221 Atherosclerosis of native arteries of extremities with rest pain, right leg; R31.9 Hematuria, unspecified
CPT/HCPCS: 76770; 81001; 88108; 88313; 95886; 95910

== ENCOUNTER 2024-05-21 13:04 | Emergency (ER) | payer MEDICARE, SELFPAY ==
[2024-05-21 13:05] VITALS: BP 122/79; PULSE 96; RESP 16; TEMP 36.5; O2SAT 99; BMI 26.0
--- NOTE | 2024-05-21 15:57 | ED.RN ---
called for pt at 1553.
== END 2024-05-21 15:53 | disposition left against medical advice (07) ==
LOC: ED 16:00
PROVIDERS: PCP Internal Medicine
DX: Z53.21 Procedure and treatment not carried out due to patient leaving prior to being seen by health care provider (principal)

== ENCOUNTER → 2024-11-15 | Outpatient (CLI) | payer MEDICARE, SELFPAY ==
--- NOTE | 2024-11-15 07:54 | ADUL_ITS ---
Reason For Study Reason For Study: s/p Rt Popliteal stent/atherectomy/thrombectomy Right Velocities Ext. Iliac Artery, dist = 78 cm./sec. Common Femoral Artery, mid = 94 cm./sec. Supf Femoral Artery, prox = 106 cm./sec. Supf Femoral Artery, mid = 79 cm./sec. Rt SFA distal to Pop distal stent: Pre Stent: 71 cm/s Prox Stent: 66 cm/s Mid Stent: 52 cm/s Distal Stent: 64 cm/s Post Stent: 267 cm/s. Profunda Femoral Artery = 104 cm./sec. Popliteal Artery, prox. = 52 cm./sec. Popliteal Artery, mid = 87 cm./sec. Popliteal Artery, dist = 64 cm./sec. Ant. Tibial Artery, prox = 59 cm./sec. Post. Tibial Artery, prox = 43 cm./sec. Post. Tibial Artery, mid = 44 cm./sec. Post. Tibial Artery, dist = 42 cm./sec. Peroneal Artery, prox = 43 cm./sec. Peroneal Artery, mid = 33 cm./sec. Peroneal Artery,dist = 21 cm./sec. Ant. Tibial Artery, mid = 46 cm./sec. Ant. Tibial Artery, dist = 46 cm./sec. Procedure Exam performed in department. /US Art Duplex Unilat Lower Ext Interpretation Summary Patent right SFA/popliteal stent with stenosis at distal edge of stent >75%. Ordering Physician: Carolina Corey Referring Physician: Nayeli Puente Performed By: Brii Hampton, JOSEPHINE, RVT
--- NOTE | 2024-11-15 07:54 | ART_ITS ---
Reason For Study Reason For Study: s/p Rt Popliteal stent/atherectomy/thrombectomy Procedure A bilateral lower extremity continuous wave Doppler with analog waveform analysis and ankle brachial indexes. Left Segmental Pressures Left brachial= 130mmHg. Left posterior tibial artery = 110mmHg. Left dorsalis pedis artery = 113mmHg. Left digit = 100 mmHg. Right Segmental Pressures Right brachial= 143mmHg. Right posterior tibial artery = 143mmHg. Right dorsalis pedis artery = 139mmHg. Right digit = 104 mmHg. Indices The right ankle brachial index by the posterior tibial artery is 1.00. The right ankle brachial index by the dorsalis pedis is 0.97. The right digital-brachial index is 0.73. The left ankle brachial index by the posterior tibial artery is 0.77. The left ankle brachial index by the dorsalis pedis is 0.79. The left digital-brachial index is 0.70. VL/Ankle Brachial Index Interpretation Summary Right RUSSELL 1.0, normal. Doppler/PVR waveforms of the right ankle normal at rest. TBI diminished, pedal/digit disease vs spasm. Left RUSSELL 0.79, moderate arterial insufficiency. Doppler/PVR waveforms of the le ft ankle moderately diminished at rest. Ordering Physician: Carolina Corey Referring Physician: Nayeli Puente Performed By: Brii Hampton RDCS/RVT
== END | disposition home or self-care (01) ==
LOC: CVS 07:53
PROVIDERS: PCP Internal Medicine; Referring Provider Physician Assistant; Visit Provider Physician Assistant
DX: I73.9 Peripheral vascular disease, unspecified (principal); Z48.812 Encounter for surgical aftercare following surgery on the circulatory system
CPT/HCPCS: 93922; 93926

== ENCOUNTER 2024-12-08 06:33 | Day surgery (SDC) | payer MEDICARE, SELFPAY ==
[2024-12-07 09:13] VITALS: BMI 28.0
[2024-12-08 06:47] LABS: Hematocrit 46.2 % (40-54); Hemoglobin 15.4 g/dL (13.0-16.5); Mean Corp Hgb Conc 33.3 g/dL (32-36); Mean Corpuscular Hgb 30.4 pg (27.0-32.0); Mean Corpuscular Volume 91.3 fL (80-94); Mean Platelet Vol. 9.2 fl (6.2-12.0); Platelet Count 398 K/mm3 (150-450); RBC Distribution Width CV 12.7 % (11.6-14.6); RBC Distribution Width SD 42.5 fl (35.1-43.9); Red Blood Count 5.06 M/mm3 (4.6-6.2); White Blood Count 14.1 K/mm3 (4.4-11.0)
[2024-12-08 07:09] LABS: Anion Gap 13 (5-15); BUN 19 mg/dL (4-19); BUN/Creat Ratio 14.8 RATIO (10-20); Calcium,Total 9.5 mg/dL (7.6-11.0); Carbon Dioxide 19.6 mmol/L (21.0-32.0); Chloride 103 mmol/L (98-108); Creatinine, Serum 1.26 mg/dL (0.70-1.20); EST Glomerular Filtration Rate 67 (>60); Glucose 119 mg/dL (70-99); Potassium 4.5 mmol/L (3.3-5.1); Sodium Level 136 mmol/L (133-145)
--- NOTE | 2024-12-08 14:40 | OP.PCM_ITS ---
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 At the time he underwent thrombectomy and covered stent which resolved his rest pain. His surveillance duplex revealed elevated velocities at the distal edge of the stent and he presents now for angiogram with possible intervention to prevent stent failure. Description of procedure: Upon obtaining informed consent and verification correct patient procedure and site the patient was taken to the [facility] where he was positioned prepped and draped in usual sterile fashion. Time was performed and conscious sedation administered Versed and fentanyl. Skin overlying the left common femoral artery was anesthetized with 1% lidocaine the vessel accessed under ultrasound guidance with a micropuncture needle wire. This was then exchanged for micropuncture sheath through which hand-injection iliofemoral angiogram was performed revealing satisfactory position with no extravasation or dissection. Through the micropuncture sheath a Bentson wire was advanced and the micropuncture sheath exchanged for a short 6 Arabic sheath. Through this an Omni Flush catheter was advanced into the abdominal aorta and a digital subtraction aortogram pelvic angiogram was performed. We then navigated into the contralateral iliac system advancing her catheter at the distal external iliac artery and from this position sequential subtraction angiography images of the right lower extremity were obtained. This confirmed stenosis at the distal aspect of the covered stent so the Bentson wire was readvanced and the Omni Flush catheter and short 6 Arabic sheath exchanged for a long 6 Arabic sheath which was advanced and positioned in the right common femoral artery. The patient was then heparinized allowed to circulate for 3 minutes. Utilizing the Bentson wire and an angled quick cross catheter we navigated into the superficial femoral artery ultimately advancing the wire and catheter through the popliteal artery and stent and ultimately into the below the knee popliteal artery beyond the stenosis. The wires withdrawn a hand-injection angiography confirmed positioning in the true lumen no extravasation or dissection. Through the quick cross catheter an 018 wire was advanced and the catheter withdrawn. Intravascular ultrasound probe was then advanced over the wire and recorded pullback performed of the tibioperoneal trunk, SFA popliteal artery, common femoral artery. This confirmed position within the true lumen of the stented segment and confirmed what appeared to be intimal hyperplasia with no appearance of thrombus at the area of stenosis. A 5 mm x 20 angio sculpt balloon was then advanced and centered on the lesion inflated nominal for 2 inflations for 3 minutes then deflated withdrawn. Repeat angiography confirmed satisfactory lesion response no extravasation or dissection and no residual stenosis. A 5 mm x 40 [employer] paclitaxel coated balloon was then advanced in position inflated to nominal for 3 minutes then deflated withdrawn. Completion angiography confirmed satisfactory result with no extravasation or dissection and no residual stenosis. The long 6 Arabic sheath then exchanged for short 6 Arabic sheath through which hand-injection subtraction angiography the left lower extremity was obtained. After satisfactory images were acquired a minx closure device was deployed followed by 5 minutes of manual pressure with satisfactory stasis noted. The patient was then taken to the recovery area with planned bedrest with discharge to home. Radiographic interpretation: Aorta normal caliber with no significant atherosclerosis or stenosis. Right common iliac artery, external iliac widely patent with no significant atherosclerosis or stenosis. Right common femoral artery, prof[place], SFA with mild atherosclerosis but no significant stenosis. Popliteal covered stent extending from the P1 segment to the P3 segment patent with brisk contrast transit and no stenosis at the leading edge. At the distal edge there was greater than 75% stenosis consistent with intimal hyperplasia. Anterior tibial, tibioperoneal trunk patent with no significant distress or stenosis. Proximal peroneal and posterior tibial arteries are widely patent with no atherosclerosis or stenosis. Satisfactory lesion response with no residual stenosis. Left common iliac artery, external artery widely patent with no atherosclerosis or stenosis. Left common femoral artery with moderate atherosclerosis but no significant stenosis. Left superficial femoral artery patent no significant the scars or stenosis, proximal popliteal artery occlusion with large caliber collaterals with reconstitution in the distal P1 segment. Distal popliteal artery patent with no significant sclerosis or stenosis, anterior tibial and tibioperoneal trunk arteries patent no significant sclerosis or stenosis. Surgical Findings: See above Complications Complications: No
--- NOTE | 2024-12-09 16:02 | PCM.HP.STD ---
HPI - General HPI Narrative EUGENIO WEBER, is a 54 M who presents with prior right lower extremity covered stents to treat a thrombosed popliteal ectasia. His surveillance duplex revealed elevated velocities at the distal edge of the stent. He also has left lower extremity claudication and abnormal RUSSELL. He presents now for angiogram possible intervention. FORMERLY [facility], [facility] Medical History Limited mobility Migraine headache Hypertension Vitamin D deficiency Wears glasses Anxiety Marijuana use Restless legs Back pain Smoker Shortness of breath on exertion Leg cramps History of pain when walking History of stress test Nausea Chronic nausea Back pain with history of spinal surgery Home Medications ?Medication ?Instructions ?Recorded ?Last Taken ?Type multivitamin with iron (Daily 1 tab PO DAILY SUPPLEMENT 08/14/20 12/08/24 History Multiple Vitamins with Iron tablet) Marijuana 1 bag inhalation DAILY pain 07/22/22 02/24/24 History sertraline 50 mg tablet (Zoloft) 100 mg (2 x 50 mg) PO DAILY mood 02/16/24 12/08/24 Rx #180 tabs aspirin 81 mg capsule 81 mg PO DAILY heart health 02/24/24 12/08/24 History clopidogrel 75 mg tablet 75 mg PO DAILY #90 tabs 02/26/24 12/08/24 Rx lisinopril 20 mg tablet 20 mg PO DAILY blood pressure #90 05/11/24 12/08/24 Rx tabs cilostazol 50 mg tablet 50 mg PO BID #60 tabs 11/19/24 12/08/24 Rx Allergy/AdvReac Type Severity Reaction Status Date / Time oxycodone (From Percocet) Allergy Hives Verified 05/21/24 13:05 propoxyphene (From Allergy Hives Verified 05/21/24 13:05 Darvocet-N) Family History Other CVA (cerebral vascular accident) Myocardial infarction Surgical History S/P insertion of spinal cord stimulator History of esophagogastroduodenoscopy (EGD) History of colonoscopy History of fusion of lumbar spine History of arthroscopic knee surgery History of fusion of cervical spine Social History Smoking Status: Heavy Smoker (>10/day) Tobacco: How many years used: 25 alcohol intake: never substance use type: marijuana and other details: medical marijuana what type of physical activity do you participate in: walking, bicycling and other details: Stretching ROS Constitutional Constitutional: Denies chills, fever(s), frequent falls, lethargy or weakness Eyes Eyes: Denies blind spots, change in vision or loss of vision ENT HEENT: Denies bleeding gums, hoarseness or sore throat Cardiovascular Cardiovascular: Denies abdominal pain, bluish discoloration of hand/feet, chest pain with activity, claudication, cold extremities, cyanosis, dyspnea on exertion, erythema on extremities, irregular heart rhythm, leg edema, leg ulcers, numbness in extremities or weakness in extremities Respiratory/Chest Respiratory/Chest: Denies cough, excessive phlegm production, shortness of breath at rest, shortness of breath with exertion or wheezing Gastrointestinal Gastrointestinal: Denies anorexia, change in stool character, constipation, diarrhea, melena or rectal bleeding Genitourinary Genitourinary: Denies dysuria or hematuria Musculoskeletal Musculoskeletal: Denies abnormal gait Integumentary Integumentary: Reports other Details: ; Denies erythema, non-healing lesions or wounds Neurologic Neurologic: Denies abnormal speech, focal weakness, headache(s), loss of vision, numbness, paresthesias or sensory deficit Hematologic/Lymphatic Hematologic/Lymphatic: Denies easy bleeding, easy bruising or lymphadenopathy Vital Signs Vital Signs Vital Signs: Weight Weight: 230 lb Body Mass Index (BMI) 28.0 Physical Exam Const alert, oriented x3, no apparent distress and healthy appearing General Appearance: cooperative; Negative for combative or lethargic Orientation / Consciousness: awake Exam Limitations: no limitations HEENT Head and Scalp: normocephalic and atraumatic Eyes EOMs intact bilaterally General Eye: normal appearance of both eyes Neck full ROM General: trachea midline Resp normal respiratory effort and no use of accessory muscles Effort and Inspection: Negative for labored, stridor or audible wheezes Cardio regular rate and regular rhythm Back/Spine Cervical Spine: cervical ROM normal Extremity full ROM, normal capillary refill and no clubbing, cyanosis or edema Skin no rashes or lesions noted and no wounds Neuro oriented x3, CN's II-XII intact bilaterally, no focal motor deficits and no sensory deficits noted Psych thought process normal, cooperative, affect normal, speech normal and activity/motor behavior normal Results Lab / Micro Data 12/08/24 06:39 12/08/24 06:39 Assessment & Plan Assessment/Plan (1) Atherosclerosis of right lower extremity: QUALIFIERS: Peripheral atherosclerosis artery type: [place] artery Peripheral atherosclerosis clinical manifestation: with rest pain Qualified Code(s): I70.221 - Atherosclerosis of [place] arteries of extremities with rest pain, right leg PLAN: -angiogram
== END 2024-12-08 12:15 | disposition home or self-care (01) ==
PROVIDERS: PCP Internal Medicine; Referring Provider Surgery Trauma Surgery; Visit Provider Surgery Trauma Surgery
DX: T82.856A Stenosis of peripheral vascular stent, initial encounter (principal); I70.221 Atherosclerosis of native arteries of extremities with rest pain, right leg; I70.292 Other atherosclerosis of native arteries of extremities, left leg; F41.9 Anxiety disorder, unspecified; F17.200 Nicotine dependence, unspecified, uncomplicated; Z79.02 Long term (current) use of antithrombotics/antiplatelets; Z79.82 Long term (current) use of aspirin; Z79.899 Other long term (current) drug therapy
CPT/HCPCS: 36200; 36245; 36246; 36415; 37224; 37252; 37253; 75625; 75716; 76937; 80048; 85027; 99152; 99153; C1725; C1753; C1760; C1769; C1887; C1894; C2623; Q9967

== ENCOUNTER → 2025-01-04 | Outpatient (CLI) | payer MEDICARE, SELFPAY ==
--- NOTE | 2025-01-04 18:45 | CT_ITS ---
PROCEDURE: CHEST WITHOUT CONTRAST 01/04/2025 REASON FOR EXAM: ABNORMAL CT CHEST POMERENE/THYMIC CYST TECHNIQUE: Chest CT without contrast. Coronal and Sagittal reconstruction series were provided. One or more dose reduction techniques were used (e.g., Automated exposure control, adjustment of the mA and/or kV according to patient size, use of iterative reconstruction technique FINDINGS: Hardware: Dorsal column spinal stimulator in the lower thoracic spine. Lymph nodes: 2 x 4 cm oval mass of fluid attenuation within the anterior mediastinum consistent with the known thymic cyst. No lymphadenopathy. Heart and Vasculature: No cardiomegaly. Atherosclerotic calcifications of the thoracic aorta. Thoracic aorta and pulmonary arteries have normal contours; noncontrast technique limits evaluation. Coronary Artery Calcifications: Present Lungs and Airways: Mild emphysema with subpleural blebs. No noncalcified nodule or mass. Pleura: No pleural effusion. Upper Abdomen: Bones: Small nonobstructing stones in the upper pole of the left kidney. Dorsal column spinal stimulator in the lower thoracic spine. 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 Reading Location: [id number]
== END | disposition home or self-care (01) ==
LOC: CT 18:45
PROVIDERS: PCP Internal Medicine; Referring Provider Internal Medicine; Visit Provider Internal Medicine
DX: E32.8 Other diseases of thymus (principal)
CPT/HCPCS: 71250